=== PATIENT | male | born 1960 | race Caucasian/White ===

== ENCOUNTER → 2016-05-03 | Outpatient (CLI) | payer OTHER ==
[~2016-05-03] MED LIST: ACET-1311 PO; ASPCH81X PO; BUSP15TA70 PO; CHOL100010 PO; GABA1CAP PO; IBUP-1050 PO; INSDGIPEN SQ; LISI-725 PO; LSX20 PO; SIMV-151 PO; TAMS0.4C59 PO
[2016-05-03 17:46] LABS: BASO % 0.4 %; BASO ABS # 0.03 K/uL (0-0.2); COMPLETE YES; EOS % 8.8 %; HEMATOCRIT 40.7 % (42-52); IG% 0.2 %; LYMPH % 14.6 %; LYMPH ABS # 1.24 K/uL (1.2-3.4); MEAN CORPUSCULAR HEMOGLOBIN 30.5 pg (25-34); MEAN CORPUSCULAR HGB CONC 33.9 g/dl (32-36); MEAN PLATELET VOLUME 10.2 fL (7.4-10.4); MONO % 7.3 %; NEUT % 68.7 %; PLATELET COUNT 180 K/uL (130-400); RED BLOOD COUNT 4.52 M/uL (4.7-6.1); WHITE BLOOD COUNT 8.51 K/uL (4.8-10.8)
[2016-05-03 18:04] LABS: ALT/SGPT 27 U/L (12-78); BLOOD UREA NITROGEN 35 mg/dl (7-18); BUN/CREATININE RATIO 22.1 (10-20); CALCIUM 9.2 mg/dl (8.5-10.1); CARBON DIOXIDE 26 mmol/L (21-32); CHLORIDE 100 mmol/L (98-107); CHOLESTEROL 151 mg/dl (0-200); GLUCOSE 163 mg/dl (70-99); SODIUM 138 mmol/L (136-145); TRIGLYCERIDES 130 mg/dl (0-150); VERY LOW DENSITY LIPOPROT CALC 26 mg/dl
[2016-05-03 18:15] LABS: ALKALINE PHOSPHATASE 101 U/L (45-117); AST/SGOT 19 U/L (15-37); CHOLESTEROL/HDL RATIO 2.8; HDL CHOLESTEROL 54 mg/dl; LDL CHOLESTEROL CALCULATED 71 mg/dl
[2016-05-04 06:14] LABS: ESTIMATED AVERAGE GLUCOSE 194 mg/dl; HA1C FLAG Normal (Normal)
== END | disposition home or self-care (01) ==
LOC: C.LABPBG 14:52
PROVIDERS: ATTEND Internal Medicine Geriatric Medicine
DX: I10 Essential (primary) hypertension (principal); E78.5 Hyperlipidemia, unspecified; D64.9 Anemia, unspecified; E11.29 Type 2 diabetes mellitus with other diabetic kidney complication; E11.65 Type 2 diabetes mellitus with hyperglycemia

== ENCOUNTER → 2016-09-12 | Outpatient (CLI) | payer OTHER ==
[2016-09-12 12:24] LABS: MEAN CELL VOLUME 92.6 fL (80-100); MEAN CORPUSCULAR HEMOGLOBIN 30.5 pg (25-34); MEAN CORPUSCULAR HGB CONC 32.9 g/dl (32-36); PLATELET COUNT 185 K/uL (130-400); RED BLOOD COUNT 4.43 M/uL (4.7-6.1); WHITE BLOOD COUNT 8.91 K/uL (4.8-10.8)
[2016-09-12 12:39] LABS: URINE PROTIEN/CREAT RATIO 0.4 (0-0.2); URINE TOTAL PROTEIN 55.3 mg/dl (0-11.9)
[2016-09-12 12:41] LABS: URINE APPEARANCE CLEAR (CLEAR); URINE BILIRUBIN NEG (NEG); URINE COLOR YELLOW; URINE EPITHELIAL CELL AUTO 0-5 /lpf (0-5); URINE NITRITE NEG (NEG); URINE SPECIFIC GRAVITY 1.019 (1.000-1.030); UROBILINOGEN NEG (NEG)
[2016-09-12 12:47] LABS: MANUAL MICROSCOPIC REQUIRED? NO; REVIEW REQ? NO
[2016-09-12 12:51] LABS: ESTIMATED AVERAGE GLUCOSE 140 mg/dl; HA1C FLAG Normal (Normal)
[2016-09-12 13:26] LABS: BLOOD UREA NITROGEN 31 mg/dl (7-18); BUN/CREATININE RATIO 19.5 (10-20); CARBON DIOXIDE 28 mmol/L (21-32); CHLORIDE 103 mmol/L (98-107); GLUCOSE 114 mg/dl (70-99); PHOSPHORUS 3.4 mg/dl (2.5-4.9); POTASSIUM 4.1 mmol/L (3.5-5.1); SODIUM 139 mmol/L (136-145)
[2016-09-12 13:27] LABS: CALCIUM 9.3 mg/dl (8.5-10.1)
== END | disposition home or self-care (01) ==
LOC: C.LABPBG 10:08
PROVIDERS: ATTEND Internal Medicine Nephrology
DX: I10 Essential (primary) hypertension (principal); D64.9 Anemia, unspecified; N18.3 Chronic kidney disease, stage 3 (moderate); E87.1 Hypo-osmolality and hyponatremia; E11.65 Type 2 diabetes mellitus with hyperglycemia; Z79.4 Long term (current) use of insulin

== ENCOUNTER → 2016-10-03 | Outpatient (CLI) | payer OTHER ==
--- NOTE | 2016-10-05 16:48 | Sleep Study ---
Sleep Study Report Date of Service: October 03, 2016 Sleep Study Report Clinical data: The patient is a 55-year-old male with BMI 36.41 referred for evaluation of sleep apnea. The patient has snoring, fatigue, hypertension, and hypersomnolence. On evening of October 03, 2016, a home sleep apnea test was performed using a [employer] type 3 monitor. Recording results: Total recording time was 10 hours. Patient monitoring time and estimated sleep time was 10 hours. Respiratory data: Mild sleep apnea was documented. The YG was 14.4. There were 41 obstructive, 20 mixed, and 16 central apneic episodes. There were 67 hypopneas episodes recorded. The longest respiratory event was 52 seconds. Oximetry data: Nocturnal hypoxemia was seen. Oxygen maame was 73 percent. Mean saturation was 93 percent. Time below 89 percent was 24 minutes. Heart rate data: Heart rates ranged from 45 to 87 beats per minute. Snoring data: Snoring was recorded throughout the entire night. Impression: 55-year-old male with mild sleep apnea and nocturnal hypoxemia. Recommendations: The patient may benefit from use of an oral appliance, use of auto CPAP, or a repeat sleep study with CPAP. Sleep medicine consultation may be of benefit. Clinical correlation is needed. Copies To 1: Paulie Thornton M.D.
== END | disposition home or self-care (01) ==
LOC: C.NEUR 08:40
PROVIDERS: ATTEND Internal Medicine Geriatric Medicine
DX: R40.0 Somnolence (principal); G47.30 Sleep apnea, unspecified

== ENCOUNTER → 2017-02-07 | Outpatient (CLI) | payer OTHER ==
[2017-02-07 16:47] LABS: BASO % 0.4 %; BASO ABS # 0.03 K/uL (0-0.2); COMPLETE YES; EOS % 5.7 %; HEMATOCRIT 37.4 % (42-52); IG% 0.2 %; LYMPH % 14.8 %; LYMPH ABS # 1.24 K/uL (1.2-3.4); MEAN CELL VOLUME 90.3 fL (80-100); MEAN CORPUSCULAR HEMOGLOBIN 30.2 pg (25-34); MEAN CORPUSCULAR HGB CONC 33.4 g/dl (32-36); MEAN PLATELET VOLUME 9.6 fL (7.4-10.4); MONO % 7.9 %; PLATELET COUNT 204 K/uL (130-400); RED BLOOD COUNT 4.14 M/uL (4.7-6.1); WHITE BLOOD COUNT 8.38 K/uL (4.8-10.8)
[2017-02-07 16:58] LABS: BLOOD UREA NITROGEN 32 mg/dl (7-18); BUN/CREATININE RATIO 18.5 (10-20); CALCIUM 8.7 mg/dl (8.5-10.1); CARBON DIOXIDE 30 mmol/L (21-32); CHLORIDE 100 mmol/L (98-107); CREATININE 1.71 mg/dl (0.60-1.40); GLUCOSE 143 mg/dl (70-99); POTASSIUM 3.9 mmol/L (3.5-5.1); SODIUM 136 mmol/L (136-145)
[2017-02-07 17:03] LABS: PROSTATE SPECIFIC ANTIGEN 0.775 ng/ml (0.000-4.000)
[2017-02-08 08:06] LABS: ESTIMATED AVERAGE GLUCOSE 163 mg/dl; HA1C FLAG Normal (Normal)
== END | disposition home or self-care (01) ==
LOC: C.LAB1850 15:17
PROVIDERS: ATTEND Nurse Practitioner Adult Health
DX: I10 Essential (primary) hypertension (principal); E78.5 Hyperlipidemia, unspecified; D64.9 Anemia, unspecified; R80.9 Proteinuria, unspecified; Z86.39 Personal history of other endocrine, nutritional and metabolic disease; E11.29 Type 2 diabetes mellitus with other diabetic kidney complication

== ENCOUNTER → 2017-03-31 | Outpatient (CLI) | payer OTHER ==
--- NOTE | 2017-03-31 09:24 | DIAGNOSTIC IMAGING REPORT ---
CT SCAN OF THE CHEST WITHOUT IV CONTRAST CLINICAL HISTORY: Follow-up unspecified abnormal chest x-ray. COMPARISON STUDY: Chest x-ray dated 01/11/2016. TECHNIQUE: CT scan of the thorax was performed from the thoracic inlet to the upper abdomen. Images are reviewed in the axial, sagittal, and coronal planes. IV contrast was not administered for this examination due to elevated serum creatinine. A dose lowering technique was utilized adhering to the principles of ALARA. CT DOSE: 596.03 mGycm FINDINGS: Thyroid: Imaged portions of the thyroid gland are normal in size and attenuation. A 12 mm low-attenuation nodule is seen in the left lobe. Thoracic aorta: There is atherosclerotic calcification of the thoracic aorta, which is normal in caliber and demonstrates standard 3-vessel arch anatomy. Heart: The heart is mildly enlarged and there is trace pericardial effusion. The coronary arteries are densely calcified. The pulmonary trunk is normal in caliber. Lungs and pleural spaces: The trachea and central airways are clear. No airspace consolidation or pleural effusion is identified. Foci of linear atelectasis versus scarring are present at both lung bases. No concerning pulmonary lesion is seen. Mediastinum: There is no mediastinal lymphadenopathy. Khloe: Grossly clear but not well assessed without IV contrast. Axillae: There is no axillary lymphadenopathy. Upper abdomen: A tiny hiatal hernia is identified. Cholecystectomy clips are noted. Skeletal structures: No lytic or blastic bony lesions are seen. A left cervical rib is noted. There are healed left lower rib fractures. IMPRESSION: 1. There is no airspace consolidation or pleural effusion. 2. No concerning pulmonary lesion is identified. Correlation with the reportedly abnormal chest x-ray will be required. 3. Mild cardiac enlargement. 4. A 12 mm low-attenuation nodule is identified in the left thyroid lobe. Follow-up with a nonemergent thyroid ultrasound is recommended for further assessment. 5. Additional findings as above. Electronically signed by: Antoni Muller M.D. 03/31/2017 9:23 AM Dictated Date/Time: 03/31/2017 9:18 AM
== END | disposition home or self-care (01) ==
LOC: C.CTS 09:01
PROVIDERS: ATTEND Family Medicine
DX: I51.7 Cardiomegaly (principal); E04.1 Nontoxic single thyroid nodule

== ENCOUNTER → 2017-04-11 | Outpatient (CLI) | payer OTHER ==
[2017-04-11 18:11] LABS: HEMATOCRIT 38.5 % (42-52); HEMOGLOBIN 12.6 g/dL (14.0-18.0); MEAN CELL VOLUME 91.4 fL (80-100); MEAN CORPUSCULAR HEMOGLOBIN 29.9 pg (25-34); MEAN CORPUSCULAR HGB CONC 32.7 g/dl (32-36); MEAN PLATELET VOLUME 9.9 fL (7.4-10.4); PLATELET COUNT 204 K/uL (130-400); RED CELL DISTRIBUTION WIDTH SD 43.1 fL (36.4-46.3)
[2017-04-11 19:15] LABS: ALBUMIN 3.7 gm/dl (3.4-5.0); BLOOD UREA NITROGEN 29 mg/dl (7-18); CALCIUM 9.1 mg/dl (8.5-10.1); CARBON DIOXIDE 30 mmol/L (21-32); CREATININE 1.71 mg/dl (0.60-1.40); GLUCOSE 97 mg/dl (70-99); PHOSPHORUS 2.8 mg/dl (2.5-4.9); POTASSIUM 3.9 mmol/L (3.5-5.1); SODIUM 135 mmol/L (136-145)
== END | disposition home or self-care (01) ==
LOC: C.LABPBG 11:47
PROVIDERS: ATTEND Internal Medicine Nephrology
DX: R80.9 Proteinuria, unspecified (principal); N18.3 Chronic kidney disease, stage 3 (moderate)

== ENCOUNTER → 2017-08-01 | Outpatient (CLI) | payer OTHER ==
[~2017-08-01] VITALS: Ht 174 cm; Wt 111.2 kg
[~2017-08-01] MED LIST changes: +GABA100C13 PO; -GABA1CAP PO
[2017-08-01 14:34] VITALS: BP 165/85; PULSE 94; Ht 174 cm; Wt 111.2 kg
== END | disposition home or self-care (01) ==
LOC: C.NEUR 13:11
PROVIDERS: ATTEND Internal Medicine Pulmonary Disease
DX: G47.30 Sleep apnea, unspecified (principal); G47.34 Idiopathic sleep related nonobstructive alveolar hypoventilation; R40.0 Somnolence; E11.29 Type 2 diabetes mellitus with other diabetic kidney complication; Z79.4 Long term (current) use of insulin; E11.49 Type 2 diabetes mellitus with other diabetic neurological complication

== ENCOUNTER → 2017-10-26 | Outpatient (CLI) | payer OTHER ==
[~2017-10-26] MED LIST changes: +GABA-1693 PO; -GABA100C13 PO
[2017-10-26 17:18] LABS: ALBUMIN 3.6 gm/dl (3.4-5.0); BLOOD UREA NITROGEN 30 mg/dl (7-18); CALCIUM 8.5 mg/dl (8.5-10.1); CARBON DIOXIDE 27 mmol/L (21-32); CHOLESTEROL 130 mg/dl (0-200); CREATININE 1.71 mg/dl (0.60-1.40); GLUCOSE 193 mg/dl (70-99); LDL CHOLESTEROL CALCULATED 42 mg/dl; PHOSPHORUS 3.8 mg/dl (2.5-4.9); POTASSIUM 3.7 mmol/L (3.5-5.1); SODIUM 132 mmol/L (136-145)
[2017-10-27 05:59] LABS: HEMOGLOBIN A1C 7.8 % (4.5-5.6)
== END | disposition home or self-care (01) ==
LOC: C.LABPBG 15:06
PROVIDERS: ATTEND Nurse Practitioner Adult Health
DX: Z00.00 Encounter for general adult medical examination without abnormal findings (principal); I12.9 Hypertensive chronic kidney disease with stage 1 through stage 4 chronic kidney disease, or unspecified chronic kidney disease; N18.3 Chronic kidney disease, stage 3 (moderate); E11.22 Type 2 diabetes mellitus with diabetic chronic kidney disease; E78.2 Mixed hyperlipidemia; E11.29 Type 2 diabetes mellitus with other diabetic kidney complication; Z79.4 Long term (current) use of insulin

== ENCOUNTER 2023-10-17 19:47 | Inpatient (IN) ==
--- NOTE | 2023-10-17 20:31 | Emergency Department Note ---
Impression & Plan Hypoglycemia due to type 2 diabetes mellitus, Stage 5 chronic kidney disease due to type 2 diabetes mellitus, Vomiting ED Provider Note Provider: Cresencio Dietrich MD DATE OF SERVICE: 10/17/2023 CHIEF COMPLAINT: Hyperglycemia HISTORY OF PRESENT ILLNESS: Patient is a 62-year-old gentleman history of CKD, type 2 diabetes, COVID disorder presenting here today via ambulance from his home. Patient evidently was trying to take a large pill and vomited. Again to feel somewhat clammy and sweaty and blood sugar registered in the 40s on his glucose monitor. Received some peanut butter and EMS was activated. Evidently 3 weeks ago according to family and caregiver had an episode where his blood sugar went to the 20s and he was unresponsive. Has been undergoing workup for his kidney disease and fistulas recently place. Patient states some decreased intake. Is on a sliding scale insulin regimen. No fevers. No chest pain or abdominal pain reported. Back at baseline now and denies significant symptoms. Little bit anxious to the hospital. Does have some caregivers during the day but lives by himself. Family been trying to work to expand this although recently denied additional assistance. They have been working to try to get placement as well. Unsure if his glucose monitor was well calibrated. No fall or trauma tonight. Does report a bit of sinus congestion. PAST MEDICAL HISTORY: As noted above MEDICATIONS: Reviewed home medication list SOCIAL HISTORY: Lives by himself PHYSICAL EXAM: GENERAL: alert and oriented in no acute distress on stretcher, slightly anxious appearing Head: normocephalic and atraumatic EYES: No injection, discharge or icterus. PERRL, EOMI. NECK: Trachea midline. Supple. ENT: Mucous membranes pink and moist. LUNGS: Airway patent. No retractions. Breath sounds clear HEART: Regular tachycardic rate and rhythm. No chest wall tenderness ABDOMEN: Soft and non-tender, without guarding or rebound. SKIN: Acyanotic, warm, dry, without rashes EXTREMITIES: Without swelling, tenderness or deformity with the right upper extremity fistula in place with thrill and some trace lower extremity edema NEUROLOGICAL: No focal deficits. No aphasia. No facial droop or slurred speech. Normal strength and tone in the extremities. Sensation to gross touch normal. EK bpm sinus tachycardia. No PVC or PAC. No acute ST segment elevation or depression with a QTc of 423. CONTINUOUS CARDIAC MONITORING: was ordered and showed a heart rate of 110s-120s bpm in sinus tachycardia 1 view chest x-ray per my interpretation: No free air. No significant pulmonary edema. No pneumothorax notable or significant pleural effusion. Little bit of a right mid hilar fullness noted but no clear or other consolidative process. Patient's laboratory studies and imaging reviewed. Differential includes Infection, dehydration, metabolic abnormality, hypo/hyperglycemia, electrolyte disturbance, anemia, hypoxia, cardiac sources, intracerebral event, toxicologic, neurologic, as well as other pathologies. IMPRESSION/MEDICAL DECISION MAKING: Patient with hypoglycemic episode. No trauma history. Not having pain. Did vomit and have a choking episode but not hypoxic here. Doubt pneumonia. COVID test sent but not having significant GI upset or URI symptoms. Basic blood work status post given his CKD to look for any significant worsening or electrolyte abnormality. History of insulin use and diabetes and with some decreased intake this could be contributing. Family is more concerned regarding his long-term status and care especially in light of the fact he only has some care at home and this is the second episode of hypoglycemia. Questioning the need for long- term care/fci care. Blood work here very slight anemia but a significant leukocytosis of 20.4. Chest x-ray with little bit of right hilar fullness but no clear lobar pneumonia. BUN and creatinine elevated though not far off outpatient labs from earlier this month. No significant electrolyte abnormality. No evidence of hepatitis or pancreatitis based on labs. Again benign abdomen without tenderness or diarrheal symptoms. Procalcitonin was added on. Given some gentle IV fluid hydration with 750 mL normal saline being careful avoid fluid overload in this renal patient. Will cover empirically with ceftriaxone at this time given leukocytosis and possible chest x-ray findings. Leukocytosis could also be to be reactive to some gastro although not having significant diarrheal symptoms or ongoing vomiting issues now. Decision making with the patient and family as he lives alone overnight with a recurrent episode of hypoglycemia from several weeks ago feel that ongoing monitoring and with some worsening renal function possible adjustment of his insulin regimen. KUB to be obtained. COVID flu RSV testing completed. DIAGNOSIS: Hypoglycemia secondary to type 2 diabetes on insulin, CKD 4, vomiting, aspiration DISPOSITION: Hospitalist will evaluate Patient was agreeable with this plan. Past Med/Surg History Problem List (Updated 10/17/23 @ 22:56 by Cresencio Dietrich M.D.) Vomiting (Acute) Hypoglycemia due to type 2 diabetes mellitus (Acute) Stage 5 chronic kidney disease due to type 2 diabetes mellitus (Acute) End stage renal disease Renal cyst follows with [facility] community support associate Vitamin D deficiency Chronic venous insufficiency of lower extremity Acute kidney injury Controlled type 2 diabetes mellitus with kidney complication, with long-term current use of insulin Stage 4 chronic kidney disease due to diabetes mellitus follows with Dr. Alejandro Diabetic nephropathy Hypercalcemia History of colon polyps Diabetes type 2, uncontrolled IDDM Cognitive disorder Adult attention deficit disorder Anemia Anxiety Benign prostatic hyperplasia with urinary obstruction Chronic osteoarthritis Coronary artery calcification Diabetic peripheral neuropathy associated with type 2 diabetes mellitus Diabetic retinopathy Dyslipidemia Learning disability has multiple caregivers that come in daily to help with care Mild sleep apnea no device Multiple thyroid nodules Nocturnal hypoxia Obesity (BMI 30.0-34.9) Proteinuria Seasonal allergies Secondary hyperparathyroidism of renal origin Uncontrolled type 2 diabetes mellitus with kidney complication, with long-term current use of insulin Uncontrolled type 2 diabetes mellitus with neurologic complication, with long- term current use of insulin Recurrent Clostridium difficile diarrhea Hypertension controlled, stable per pt Inguinal hernia OCD (obsessive compulsive disorder) Medical History Diabetic retinopathy History of OCD (obsessive compulsive disorder) Obesity (BMI 30.0-34.9) End stage renal disease Hypertension Adult attention deficit disorder Anxiety Seasonal allergies Mild sleep apnea Stage 4 chronic kidney disease Dyslipidemia Diabetes mellitus Hx of Clostridium difficile infection states no issues in years Dysphagia takes pills w/ applesauce Poor historian History of COVID-19 02/2021- flu like symptoms>resolved Herniated disc pt and POA unsure Glaucoma Surgical History Hx of vascular surgery 03/2023, right AC basilic vein fistula creation History of colonoscopy History of left cataract extraction History of right cataract extraction History of testicular surgery Hydrocele repair. History of hernia repair History of laparoscopic cholecystectomy Family History Mother Alzheimer disease Sister Hypertension Father Prostate cancer Other No family history of adverse response to anesthesia Denies family history of Ovarian cancer Myocardial infarction Breast cancer Colorectal cancer Social History Smoking Status: Never smoker Second Hand Exposure: No; Do You Dip or Chew Tobacco: No; Hx Alcohol Use: No Hx Substance Use: No Preferred Language: Kazakh Communication Ability: Impaired Communication Ability Comment: vision impaired, still signs own consents Visual Impairment: Limited Hearing Ability: Normal Surgical Lead Required: No Beliefs That Will Affect Care: None marital status: Single Current Living Situation: Alone Current Living Situation Comment: has caregivers every 12 hours, sisters also help care for him current occupational status: disabled Feels Safe at Home: Yes Childhood Exposure to Second-Hand Smoke: No Diet: regular Diet Comment: regular caffeine: No (hot tea once in a while) during the past year weight has: remained stable Dental Care, Regularly: Yes Physical Activity Frequency: 1-2 Times per Week Seatbelt Use: always Sunscreen Use: No Assistive Devices: Cane Allergies Allergies Allergy/AdvReac Type Severity Reaction Status Date / Time lisinopril Allergy Intermediate scratchy Verified 10/17/23 21:00 throat Home Meds Home Medications Medication Instructions Recorded Confirmed aspirin 81 mg tablet,delayed 81 mg PO QAM 05/24/19 10/17/23 release acetaminophen 500 mg tablet 500 mg PO Q6H PRN Pain 02/11/20 10/17/23 (Tylenol Extra Strength) blood sugar diagnostic (OneTouch 12/28/20 10/02/23 Ultra Blue Test Strip) albuterol sulfate 90 mcg/actuation 2 inh inhalation Q6H PRN Shortness 01/31/22 10/17/23 aerosol inhaler Of Breath Or Wheezing peg 400-propylene glycol (PF) 0.4 1 drp ophthalmic (eye) TID PRN Dry 04/11/23 10/17/23 %-0.3 % eye drops in a dropperette Eyes (Systane (PF)) empagliflozin 10 mg tablet 10 mg PO QAM 07/26/23 10/17/23 (Jardiance) insulin lispro 100 unit/mL 15 unit subcut TIDM 07/26/23 10/17/23 subcutaneous pen (Humalog KwikPen (U-100) Insulin) epoetin rosey 40,000 unit/mL 0 unit subcut MONTHLY 09/27/23 10/17/23 injection solution (Procrit) Previous Rx's Medication Instructions Recorded blood-glucose meter (Blood Glucose #1 ea 03/31/19 Monitoring kit) glucose 4 gram chewable tablet 4 g PO Q15M PRN hypoglycemia #30 09/04/20 (Dex4 Glucose) tabs lancets 28 gauge (OneTouch #100 ea 12/28/20 Sure[employer]ie Jean Lancing Devices) clotrimazole 1 % topical cream 1 applic topical BID #90 grams 05/20/22 cane #1 ea 10/13/22 simvastatin 20 mg tablet 20 mg PO QPM #90 tabs 11/04/22 Shower Chair #1 ea 11/25/22 Handicap Walk In Shower #1 ea 12/15/22 furosemide 40 mg tablet 40 mg PO BID #180 tabs 12/15/22 compress.stocking,knee,reg,med #2 ea 12/29/22 amlodipine 5 mg tablet 5 mg PO QAM #90 tabs 02/21/23 triamcinolone acetonide 0.5 % 1 applic topical BID PRN skin 03/15/23 topical cream irritation #60 grams ferrous sulfate 325 mg (65 mg 325 mg PO BID #180 tabs 03/22/23 iron) tablet losartan 100 mg tablet 100 mg PO QPM #90 tabs 03/22/23 tamsulosin 0.4 mg capsule 0.4 mg PO QAM #90 caps 03/24/23 buspirone 15 mg tablet 15 mg PO BID #180 tabs 05/16/23 docusate sodium 100 mg capsule 100 mg PO BID #180 caps 05/16/23 (Colace) calcitriol 0.25 mcg capsule 0.25 mcg PO QAM #90 caps 06/13/23 pen needle, diabetic 32 gauge x #400 ea 06/15/23 5/32" (BD Ultra-Fine Daria Pen Needle) blood-glucose meter,continuous #1 ea 06/19/23 (FreeStyle Kaylah 3 [place]) gabapentin 300 mg capsule 300 mg PO QPM #90 caps 09/07/23 sucroferric oxyhydroxide 500 mg 500 mg PO TIDWMEAL #90 tabs 10/11/23 chewable tablet (Velphoro) insulin glargine 100 unit/mL (3 20 unit (0.2 mL) subcut HS #45 mL 10/13/23 mL) subcutaneous pen (Lantus Solostar U-100 Insulin) Results & Data (ED) Vital Signs Vital Signs - 24 hr 10/17/23 19:52 10/17/23 19:56 10/17/23 20:00 Temperature 37.4 C Temperature Source Oral Pulse Rate 113 H 116 H 114 H Pulse Rate from SpO2 Sensor 114 H Respiratory Rate 18 20 Respiratory Effort / Characteristics Non-Labored Spontaneous Respiratory Depth Normal Respiratory Pattern Regular Blood Pressure 184/91 H 184/91 H Blood Pressure Mean 122 122 Pulse Oximetry 98 98 Oxygen Delivery Method Room Air Room Air Sepsis Recent Fever Within 48 Hours No Sepsis New/Unexplained Change in Mental Status N/A Sepsis Action Taken by Nursing No Action Required 10/17/23 20:00 10/17/23 22:00 10/17/23 22:36 Temperature Temperature Source Pulse Rate 120 H 121 H 121 H Pulse Rate from SpO2 Sensor 122 H 122 H Respiratory Rate 20 18 20 Respiratory Effort / Characteristics Respiratory Depth Respiratory Pattern Blood Pressure 162/94 H 169/85 H Blood Pressure Mean 109 113 Pulse Oximetry 96 100 97 Oxygen Delivery Method Room Air Room Air Room Air Sepsis Recent Fever Within 48 Hours Sepsis New/Unexplained Change in Mental Status Sepsis Action Taken by Nursing Laboratory Data 10/17/23 20:52 10/17/23 20:52 Lab Results 10/17/23 10/17/23 10/17/23 Range/Units 19:55 20:52 20:53 WBC 20.47 H (4.8-10.8) K/ul RBC 3.66 L (4.70-6.10) M/uL Hgb 11.1 L (14.0-18.0) g/dl Hct 33.3 L (42.0-52.0) % MCV 91.0 (80.0-100.0) fL MCH 30.3 (25.0-34.0) pg MCHC 33.3 (32.0-36.0) g/dL RDW Std Deviation 40.1 (36.4-46.3) fL RDW Coeff of Vinay 12.1 (11.5-14.5) % Plt Count 201 (130-400) K/uL MPV 9.1 L (9.4-12.4) fL Immature Gran % (Auto) 0.5 % Neut % (Auto) 89.7 % Lymph % (Auto) 3.4 % Tripp % (Auto) 4.4 % Eos % (Auto) 1.6 % Baso % (Auto) 0.4 % Neut # (Auto) 18.36 H (1.40-6.50) K/uL Lymph # (Auto) 0.70 L (1.20-3.40) K/uL Tripp # (Auto) 0.90 H (0.11-0.59) K/uL Eos # (Auto) 0.32 (0.00-0.50) K/uL Baso # (Auto) 0.08 (0.00-0.20) K/uL Immature Gran # (Auto) 0.11 (0.01-0.20) K/uL Sodium 136 (136-145) mmol/L Potassium 4.1 (3.5-5.1) mmol/L Chloride 100 (98-107) mmol/L Carbon Dioxide 25 (21-32) mmol/L Anion Gap 11 (3-11) BUN 74 H (6-23) mg/dl Creatinine 4.63 H* (0.6-1.4) mg/dl Est Cr Clr Drug Dosing 19.2 ml/min Est GFR ( Amer) 14.5 ml/min Est GFR (Non-Af Amer) 12.5 ml/min BUN/Creatinine Ratio 16.0 (10-20) Glucose 119 H (70-99(Fasting)) mg/dl POC Glucose 114 H (70-99) mg/dl Estimat Average Glucose 171 mg/dl Hemoglobin A1c 7.6 H (4.5-5.6) % Calcium 9.8 (8.6-10.3) mg/dl Magnesium 2.4 (1.7-2.4) mg/dl Total Bilirubin 0.5 (0.2-1.0) mg/dl AST 14 (13-39) U/L ALT 14 (7-52) U/L Alkaline Phosphatase 59 (34-104) U/L Troponin I High Sens 15.3 (0-20) pg/ml Total Protein 7.5 (6.0-8.3) gm/dl Albumin 4.3 (3.4-5.0) gm/dl Globulin 3.2 (2.5-4.0) gm/dl Albumin/Globulin Ratio 1.3 (0.9-2) Lipase 63 (11-82) U/L Procalcitonin 0.09 (0-0.5) ng/ml TSH 2.155 (0.300-4.500) uIu/ml Administered Medications Discontinued Medications Sodium Chloride (Nss) 250 mls @ 999 mls/hr IV .Q16M ONE Stop: 10/17/23 20:48 Last Infusion: 10/17/23 22:10 Dose: Infused Documented By: Admin: 10/17/23 21:20 Dose: 999 mls/hr Documented By: ACRLITA Sodium Chloride (Nss) 500 mls @ 999 mls/hr IV .Q31M ONE Stop: 10/17/23 21:52 Last Admin: 10/17/23 22:24 Dose: 999 mls/hr Documented By: CARLITA Ceftriaxone Sodium (Rocephin) 2,000 mg in 50 mls @ 100 mls/hr IV NOW STA Stop: 10/17/23 22:29 Last Admin: 10/17/23 22:24 Dose: 100 mls/hr Documented By: CARLITA Discharge Plan Visit Data Chief Complaint: Hypoglycemia Stated Complaint: LOW BLOOD SUGAR ED Provider: Cresencio Dietirch Discharge Problem: Hypoglycemia due to type 2 diabetes mellitus, Stage 5 chronic kidney disease due to type 2 diabetes mellitus, Vomiting Patient Disposition: Being Evaluated by Hospitalist Forms Stand Alone Forms: My [facility] Prescriptions Prescriptions: No Action (DME) lancets [OneTouch SureSoft Lancing Dev] 28 gauge misc See Rx Instructions .ROUTE .MEDSUPPLY Qty: 100 5RF Rx Instructions: testing 3 X daily simvastatin 20 mg tablet 20 mg PO QPM Qty: 90 3RF (DME) Shower Chair Misc See Rx Instructions .Route Qty: 1 0RF Rx Instructions: As directed amlodipine 5 mg tablet 5 mg PO QAM Qty: 90 3RF triamcinolone acetonide 0.5 % cream 1 applic topical BID PRN (Reason: skin irritation) Qty: 60 1RF Rx Instructions: apply to lower legs ferrous sulfate 325 mg (65 mg iron) tablet 325 mg PO BID Qty: 180 3RF losartan 100 mg tablet 100 mg PO QPM Qty: 90 3RF tamsulosin 0.4 mg capsule 0.4 mg PO QAM Qty: 90 2RF docusate sodium [Colace] 100 mg capsule 100 mg PO BID Qty: 180 1RF Rx Instructions: buspirone 15 mg tablet 15 mg PO BID Qty: 180 1RF calcitriol 0.25 mcg capsule 0.25 mcg PO QAM Qty: 90 3RF (DME) pen needle, diabetic [BD Ultra-Fine Daria Pen Needle] 32 gauge x 5/32" needle See Rx Instructions .Route Qty: 400 1RF Rx Instructions: Use four per day to inject insulin (DME) FreeStyle Kaylah 3 [place] Misc See Rx Instructions .Route Qty: 1 0RF Rx Instructions: for use with Kaylah 3 sensors gabapentin 300 mg capsule 300 mg PO QPM Qty: 90 1RF Procrit 40,000 unit/mL solution 0 unit subcut MONTHLY Velphoro 500 mg tablet,chewable 500 mg PO TIDWMEAL Qty: 90 2RF Rx Instructions: to be taken with meal as phosphate binder. insulin glargine [Lantus Solostar U-100 Insulin] 100 unit/mL (3 mL) insulin pen 20 unit subcut HS Qty: 45 1RF clotrimazole 1 % cream 1 applic topical BID Qty: 90 2RF furosemide 40 mg tablet 40 mg PO BID Qty: 180 3RF glucose [Dex4 Glucose] 4 gram tablet,chewable 4 g PO Q15M PRN (Reason: hypoglycemia) Qty: 30 0RF Rx Instructions: until symptoms of low blood sugar are controlled (DME) cane Device See Rx Instructions .Route Qty: 1 0RF Rx Instructions: As directed (DME) Handicap Walk In Shower See Rx Instructions .Route .MEDSUPPLY Qty: 1 0RF Rx Instructions: As directed (DME) compress.stocking,knee,reg,med Misc See Rx Instructions .ROUTE .MEDSUPPLY Qty: 2 0RF Rx Instructions: Medium compression 20-30mmHG; Dx: I87.2 albuterol sulfate 90 mcg/actuation HFA aerosol inhaler 2 inh inhalation Q6H PRN (Reason: Shortness Of Breath Or Wheezing) (DME) blood-glucose meter [Blood Glucose Monitoring] Kit See Rx Instructions .ROUTE .MEDSUPPLY Qty: 1 0RF Rx Instructions: One Touch Ultra Mini. Test 4 times a day. acetaminophen [Tylenol Extra Strength] 500 mg tablet 500 mg PO Q6H PRN (Reason: Pain) (DME) OneTouch Ultra Blue Test Strip Strip See Rx Instructions .ROUTE .MEDSUPPLY Dose Instruction: As directed Rx Instructions: Testing 1 times daily, E11.49, E11.65 aspirin 81 mg Tablet,Delayed Release (Dr/Ec) 81 mg PO QAM Systane (PF) 0.4-0.3 % Dropperette 1 drp OPHTHALMIC (EYE) TID PRN (Reason: Dry Eyes) insulin lispro [Humalog KwikPen Insulin] 100 unit/mL insulin pen 15 unit subcut TIDM Rx Instructions: 15 units subcut three times daily with meals Jardiance 10 mg tablet 10 mg PO QAM Referrals Referrals: Michelle Chaparro DO [Primary Care Provider] -
[2023-10-17 21:19] LABS: Basophils # (auto) 0.08 K/uL (0.00-0.20); Basophils % (auto) 0.4 %; Eosinophils # (auto) 0.32 K/uL (0.00-0.50); Eosinophils % (auto) 1.6 %; Hematocrit (blood only) 33.3 % (42.0-52.0); Hemoglobin 11.1 g/dl (14.0-18.0); Immature Granulocytes # (auto) 0.11 K/uL (0.01-0.20); Immature Granulocytes % (auto) 0.5 %; Lymphocytes % (auto) 3.4 %; Mean Corpuscular Hemoglobin 30.3 pg (25.0-34.0); Mean Corpuscular Hgb Conc 33.3 g/dL (32.0-36.0); Mean Platelet Volume 9.1 fL (9.4-12.4); Monocytes % (auto) 4.4 %; Neutrophils # (auto) 18.36 K/uL (1.40-6.50); Neutrophils % (auto) 89.7 %; Platelet Count 201 K/uL (130-400); RDW Coefficient of Variation 12.1 % (11.5-14.5); RDW Standard Deviation 40.1 fL (36.4-46.3); Red Blood Count 3.66 M/uL (4.70-6.10); White Blood Count 20.47 K/ul (4.8-10.8)
[2023-10-17] MEDS: SODIUM CHLORIDE 0.9% 250 ML IV ONE (21:20)
[2023-10-17 21:32] LABS: Albumin Globulin Ratio 1.3 (0.9-2); Albumin Level 4.3 gm/dl (3.4-5.0); Bilirubin,Total 0.5 mg/dl (0.2-1.0); Calcium 9.8 mg/dl (8.6-10.3); Creatinine Clr Calc Pharmacy 19.2 ml/min; Est GFR (African American) 14.5 ml/min; Est GFR (Non-African American) 12.5 ml/min; Globulin 3.2 gm/dl (2.5-4.0); Magnesium 2.4 mg/dl (1.7-2.4); Potassium 4.1 mmol/L (3.5-5.1); Total Protein 7.5 gm/dl (6.0-8.3)
[2023-10-17 21:38] LABS: Estimated Average Glucose 171 mg/dl; Hemoglobin A1C 7.6 % (4.5-5.6)
[2023-10-17 21:45] LABS: Thyroid Stimulating Hormone 2.155 uIu/ml (0.300-4.500); Troponin I High Sensitivity 15.3 pg/ml (0-20)
[2023-10-17] MEDS: cefTRIAXone SODIUM 2,000 MG/50 ML BAG IV STA (22:24)
[2023-10-17] MEDS: SODIUM CHLORIDE 0.9% 500 ML IV ONE (22:24)
[2023-10-17 23:00] LABS: Appearance Urine Clear (Clear); Bacteria Urine Automated None Seen (None Seen); Bilirubin Urine Negative (Negative); Blood Urine Trace (Negative); Cast Urine Automated 0-2 /lpf (0-2); Color Urine Yellow; Epithelial Cell Urine Auto 0-2 /hpf (0-2); Glucose Urine UA 2+ (Negative); Ketones Urine Trace (Negative); Leukocyte Esterase Urine Negative (Negative); Nitrite Urine Negative (Negative); Protein Urine 2+ (Negative); RBC Urine Automated 0-2 /hpf (0-2); Specific Gravity Urine 1.012 (1.000-1.030); Urobilinogen Urine Negative (Negative); WBC Urine Automated 0-5 /hpf (0-5)
--- NOTE | 2023-10-17 23:28 | History & Physical Report ---
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 #T2DM Glucose in normal range since arrival to ED Will hold home insulin and cover with ISS #Leukocytosis Unclear source CXR, procal, UA negative KUB, COVID, Flu, RSV negative Given CTX x1 in ED #KIRK on CKD-V pre renal due to decreased oral intake vs progression of CKD Given 750mL bolus, will continue gentle fluid resuscitation Avoid large amounts of fluid follow BMP, repeat in AM fistula in place, not yet on dialysis #Intellectual disability Pt having increasing difficulty caring for himself Has caregivers in during the day but alone overnight POAs are sisters and they are interested in fci placement for him at this time Please call sisters with updates: Ban ; Renay #Anxiety buspar #BPH flomax #HTN amlodipiine losartan FENGI: DM2, renal Code status: full code DVT prophylaxis: heparin Isolation: none Disposition: med tele History of Present Illness Primary Care Provider: Michelle Chaparro, DO 62 yo male PMHx intellectual disability, CKD-V not yet on [employer]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 He has had at least two episodes of hypoglycemia in the last 3 weeks as low as 29, according to his caregiver. He is on insulin therapy and no recent changes have been made to their dosing. He reports a decreased appetite after fistula placement was completed in July 2023. Today he had an episode of nausea and vomiting after taking a pill. He has not been sick recently. On admission he was found to have a leukocytosis of 20.47 and is tachycardic on the monitor. Other than the episode of vomiting today he denies MARK, CP, SOB, N/V/D, abdominal pain. ED course: s/p 750ml NSS He was treated empirically with ceftriaxone, blood cultures were not drawn CXR shows perihilar fullness, but no obvious focal pneumonia procal is negative UA not suggestive of infection COVID/Flu/RSV testing pending KUB ordered by ED pending Allergies Allergy/AdvReac Type Severity Reaction Status Date / Time lisinopril Allergy Intermediate scratchy Verified 10/17/23 21:00 throat Home Medications Medication Instructions Recorded Confirmed Type blood-glucose meter (Blood Glucose #1 ea 03/31/19 10/02/23 Rx Monitoring kit) aspirin 81 mg tablet,delayed 81 mg PO QAM 05/24/19 10/17/23 History release acetaminophen 500 mg tablet 500 mg PO Q6H PRN Pain 02/11/20 10/17/23 History (Tylenol Extra Strength) glucose 4 gram chewable tablet 4 g PO Q15M PRN hypoglycemia #30 09/04/20 10/17/23 Rx (Dex4 Glucose) tabs blood sugar diagnostic (OneTouch 12/28/20 10/02/23 History Ultra Blue Test Strip) lancets 28 gauge (OneTouch #100 ea 12/28/20 10/02/23 Rx SureSoft Lancing Devices) albuterol sulfate 90 mcg/actuation 2 inh inhalation Q6H PRN Shortness 01/31/22 10/17/23 History aerosol inhaler Of Breath Or Wheezing clotrimazole 1 % topical cream 1 applic topical BID #90 grams 05/20/22 10/17/23 Rx cane #1 ea 10/13/22 10/02/23 Rx simvastatin 20 mg tablet 20 mg PO QPM #90 tabs 11/04/22 10/17/23 Rx Shower Chair #1 ea 11/25/22 10/02/23 Rx Handicap Walk In Shower #1 ea 12/15/22 10/02/23 Rx furosemide 40 mg tablet 40 mg PO BID #180 tabs 12/15/22 10/17/23 Rx compress.stocking,knee,reg,med #2 ea 12/29/22 10/02/23 Rx amlodipine 5 mg tablet 5 mg PO QAM #90 tabs 02/21/23 10/17/23 Rx triamcinolone acetonide 0.5 % 1 applic topical BID PRN skin 03/15/23 10/17/23 Rx topical cream irritation #60 grams ferrous sulfate 325 mg (65 mg 325 mg PO BID #180 tabs 03/22/23 10/17/23 Rx iron) tablet losartan 100 mg tablet 100 mg PO QPM #90 tabs 03/22/23 10/17/23 Rx tamsulosin 0.4 mg capsule 0.4 mg PO QAM #90 caps 03/24/23 10/17/23 Rx peg 400-propylene glycol (PF) 0.4 1 drp ophthalmic (eye) TID PRN Dry 04/11/23 10/17/23 History %-0.3 % eye drops in a dropperette Eyes (Systane (PF)) buspirone 15 mg tablet 15 mg PO BID #180 tabs 05/16/23 10/17/23 Rx docusate sodium 100 mg capsule 100 mg PO BID #180 caps 05/16/23 10/17/23 Rx (Colace) calcitriol 0.25 mcg capsule 0.25 mcg PO QAM #90 caps 06/13/23 10/17/23 Rx pen needle, diabetic 32 gauge x #400 ea 06/15/23 10/02/23 Rx 5/32" (BD Ultra-Fine Daria Pen Needle) blood-glucose meter,continuous #1 ea 06/19/23 10/02/23 Rx (FreeStyle Kaylah 3 [place]) empagliflozin 10 mg tablet 10 mg PO QAM 07/26/23 10/17/23 History (Jardiance) insulin lispro 100 unit/mL 15 unit subcut TIDM 07/26/23 10/17/23 History subcutaneous pen (Humalog KwikPen (U-100) Insulin) gabapentin 300 mg capsule 300 mg PO QPM #90 caps 09/07/23 10/17/23 Rx epoetin rosey 40,000 unit/mL 0 unit subcut MONTHLY 09/27/23 10/17/23 History injection solution (Procrit) sucroferric oxyhydroxide 500 mg 500 mg PO TIDWMEAL #90 tabs 10/11/23 10/17/23 Rx chewable tablet (Velphoro) insulin glargine 100 unit/mL (3 20 unit (0.2 mL) subcut HS #45 mL 10/13/23 10/17/23 Rx mL) subcutaneous pen (Lantus Solostar U-100 Insulin) Past Med/Surg History Problem List (Updated 10/17/23 @ 23:37 by Gabriel Mcclain DO) Leukocytosis Acute kidney injury superimposed on stage 5 chronic kidney disease, not on chronic dialysis Vomiting (Acute) Hypoglycemia due to type 2 diabetes mellitus (Acute) Stage 5 chronic kidney disease due to type 2 diabetes mellitus (Acute) End stage renal disease Renal cyst 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 Alejandro Diabetic nephropathy Hypercalcemia History of colon polyps Diabetes type 2, uncontrolled IDDM Cognitive disorder Adult attention deficit disorder Anemia Anxiety Benign prostatic hyperplasia with urinary obstruction Chronic osteoarthritis Coronary artery calcification Diabetic peripheral neuropathy associated with type 2 diabetes mellitus Diabetic retinopathy Dyslipidemia Learning disability has multiple caregivers that come in daily to help with care Mild sleep apnea no device Multiple thyroid nodules Nocturnal hypoxia Obesity (BMI 30.0-34.9) Proteinuria Seasonal allergies Secondary hyperparathyroidism of renal origin Uncontrolled type 2 diabetes mellitus with kidney complication, with long-term current use of insulin Uncontrolled type 2 diabetes mellitus with neurologic complication, with long- term current use of insulin Recurrent Clostridium difficile diarrhea Hypertension controlled, stable per pt Inguinal hernia OCD (obsessive compulsive disorder) Medical History Diabetic retinopathy History of OCD (obsessive compulsive disorder) Obesity (BMI 30.0-34.9) End stage renal disease Hypertension Adult attention deficit disorder Anxiety Seasonal allergies Mild sleep apnea Stage 4 chronic kidney disease Dyslipidemia Diabetes mellitus Hx of Clostridium difficile infection states no issues in years Dysphagia takes pills w/ applesauce Poor historian History of COVID-19 02/2021- flu like symptoms>resolved Herniated disc pt and POA unsure Glaucoma Surgical History Hx of vascular surgery 03/2023, right AC basilic vein fistula creation History of colonoscopy History of left cataract extraction History of right cataract extraction History of testicular surgery Hydrocele repair. History of hernia repair History of laparoscopic cholecystectomy Family History Mother Alzheimer disease Sister Hypertension Father Prostate cancer Other No family history of adverse response to anesthesia Denies family history of Ovarian cancer Myocardial infarction Breast cancer Colorectal cancer Social History Smoking Status: Never smoker Second Hand Exposure: No; Do You Dip or Chew Tobacco: No; Hx Alcohol Use: No Hx Substance Use: No Preferred Language: Luxembourgish Communication Ability: Effective Communication Ability Comment: vision impaired, still signs own consents Visual Impairment: Limited Hearing Ability: Normal Credit Adjuster Required: No Beliefs That Will Affect Care: None marital status: Single Current Living Situation: Alone Current Living Situation Comment: has care givers but only in am current occupational status: disabled Other Information That Helps Us Care for You: No Feels Safe at Home: No Is there a partner from a previous relationship who is making you feel unsafe now?: No Any Concerns about Your Family Situation: No Would You Like to Speak to Someone About Your Situation: No Safety Concerns: Feels Safe At This Time Childhood Exposure to Second-Hand Smoke: No Diet: regular Diet Comment: regular caffeine: No (hot tea once in a while) during the past year weight has: remained stable Dental Care, Regularly: Yes Physical Activity Frequency: 1-2 Times per Week Seatbelt Use: always Sunscreen Use: No Assistive Devices: Cane Review of Systems Review of Systems: reviewed, per HPI Physical Exam Physical Exam: Constitutional: no acute distress HEENT: NCAT, no conjunctival injection CV: regular rhythm, no murmur appreciated, extremities well-perfused, no LE edema Resp: CTABL, no wheezes/rales/rhonchi appreciated, no increased work of breathing GI: soft, nondistended, nontender MSK: no gross deformities appreciated Skin: warm, dry, no rash appreciated Neuro: alert, oriented, no focal neurologic deficit appreciated Results & Data Results & Data Vital Signs (Past 12 Hours) Vital Signs Temp Pulse Resp BP Pulse Ox O2 Del Method 10/17/23 22:36 121 H 20 169/85 H 97 Room Air 10/17/23 22:00 121 H 18 162/94 H 100 Room Air 10/17/23 20:00 120 H 20 96 Room Air 10/17/23 20:00 114 H 20 184/91 H 98 Room Air 10/17/23 19:56 116 H 10/17/23 19:52 37.4 C 113 H 18 184/91 H 98 Room Air Code Status & VTE Plan VTE Prophylaxis Plan VTE Prophylaxis will be ordered: Yes Supervising Physician Co-Signing Physician Notes Attending addendum: I have physically seen this patient, have supervised the medical residents activities, and agree with the H&P unless as otherwise noted. Assessment and Plan: Hypoglycemia due to diabetes mellitus- Decreased oral intake of foods due to nausea and vomiting Reportedly had questions about possibly tolerating chewable sevelamer Hold home insulin Placed on Accu-Cheks with NovoLog SSI Glucose as low as 46, presently 119 50 mL of D50 as needed for glucose less than 100 Acute kidney injury superimposed on CKD/dehydration- Creatinine 4.63 with base around 4.46 Status post 750 mL bolus from the ED Continue NSS as noted, recheck laboratories in a.m. Has not been on dialysis Consult nephrology to follow in hospital Leukocytosis- WBC 20.47 with left shift COVID/flu/RSV all negative Urinalysis negative so far Received ceftriaxone empirically from the ED Follow overnight determine additional dosing for the a.m. Hypertension- Continue amlodipine Hold losartan Remaining orders and notations as noted Resident Activity Tracking Resident Involvement: Resident Care Provided Care Provided: Adult Hospital Medicine
[2023-10-17 23:41] LABS: Influenza A virus by PCR Negative (Neg); Influenza B virus by PCR Negative (Neg); RSV by PCR Negative (Neg); SARS CoV2 RNA(COVID-19) Ceph NEGATIVE (Negative)
[2023-10-18] MEDS ORDERED: GLUCAGON FOR INJ 1 MG VIAL SQ PRN (02:44)
[2023-10-18] MEDS ORDERED: DEXTROSE 50% 50 ML SYRINGE IV PRN (02:44)
[2023-10-18] MEDS ORDERED: ALUMINUM/MAGNESIUM SUSP 30 ML UDC PO PRN (02:44)
[2023-10-18] MEDS ORDERED: CARBOHYDRATES FOR HYPOGLYCEMIA PO PRN (02:44)
[2023-10-18] MEDS ORDERED: ALBUTEROL HFA 8 GM INHALER INH PRN (02:44)
[2023-10-18] MEDS ORDERED: GLUCOSE 40% GEL 15 GM TUBE PO PRN (02:44)
[2023-10-18] MEDS ORDERED: GLUCOSE 10 TAB/TUBE PO PRN (02:44)
[2023-10-18] MEDS ORDERED: ARTIFICIAL TEARS OP PRN (03:08)
[2023-10-18] MEDS: busPIRone 15 MG TAB PO SCH (03:34)
[2023-10-18] MEDS: FUROSEMIDE 40 MG TAB PO SCH (03:35)
[2023-10-18] MEDS: DOCUSATE SODIUM 100 MG CAP PO SCH (03:35)
--- NOTE | 2023-10-18 06:56 | XRay Report ---
XR chest 1V portable CLINICAL HISTORY: weakness, vomiting TECHNIQUE: Single frontal radiograph of the chest was obtained. Comparison: Comparison is made to chest radiograph 08/20/2023 FINDINGS: No lines and tubes are seen. Calcified aortic knob is seen. The lungs are clear. No evidence of pleur al effusion or pneumothorax. IMPRESSION: No acute chest disease. ACT 112: Negative or not required by law. Electronically signed by: Jose Knowles M.D. 10/18/2023 6:55 AM
[2023-10-18] MEDS: ONDANSETRON INJ 2 MG/ML 2 ML VIAL IV PRN (07:54)
[2023-10-18] MEDS: CALCITRIOL 0.25 MCG CAPSULE PO SCH (08:35)
[2023-10-18] MEDS: amLODIPine BESYLATE 5 MG TAB PO SCH (08:35)
[2023-10-18] MEDS: HEPARIN SOD 5,000 UNIT/0.5 ML VIAL SQ SCH (08:35)
[2023-10-18] MEDS: FERROUS SULFATE 325 MG TAB PO SCH (08:35)
[2023-10-18] MEDS: ASPIRIN 81 MG ECTAB PO SCH (08:35)
[2023-10-18] MEDS: TAMSULOSIN HCL 0.4 MG CAP PO SCH (08:35)
[2023-10-18] MEDS: POLYETHYLENE (MIRALAX) 17 GM PACK PO PRN (08:40)
[2023-10-18] MEDS: INSULIN ASPART PER UNIT CHARGE SC SCH (08:45)
--- NOTE | 2023-10-18 08:58 | XRay Report ---
KUB HISTORY: vomited COMPARISON: None. FINDINGS: The bowel gas pattern is unremarkable. There are no dilated loops of small bowel to suggest an obstruction. No renal calculi. No ureteral calculi. Calcifications in the deep pelvis likely rep resent phleboliths. Moderate fecal retention. Surgical clips within the right upper quadrant. No pneu moperitoneum or pneumatosis. IMPRESSION: 1. Nonobstructive bowel gas pattern. 2. Moderate fecal retention. ACT 112: Negative or not required by law. Electronically signed by: Pradeep Keita M.D. 10/18/2023 8:57 AM
--- NOTE | 2023-10-18 13:37 | Hospitalist Progress Note ---
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 #T2DM Glucose in normal range since arrival to ED Will hold home insulin and cover with ISS Continue to monitor #Leukocytosis Unclear source CXR, procal, UA negative KUB, COVID, Flu, RSV negative Given CTX x1 in ED Will hold off on antibiotics, was probably stress related #KIRK on CKD-V pre renal due to decreased oral intake vs progression of CKD Gentle hydration fistula in place, not yet on dialysis #Intellectual disability Pt having increasing difficulty caring for himself Has caregivers in during the day but alone overnight POAs are sisters and they are interested in longterm placement for him at this time Please call sisters with updates: Ban ; Renay #Anxiety buspar #BPH flomax #HTN amlodipiine losartan FENGI: DM2, renal Code status: full code DVT prophylaxis: heparin Isolation: none Disposition: med tele Admission and Anticipated Discharge Date Admission Date: October 17, 2023 Subjective Patient seen and examined, denies any new complaints denies fevers or chills Review of Systems Review of Systems: All systems reviewed are negative, apart from the ones contained in the history. Physical Exam Physical Exam: The patient is awake, alert and oriented 3, well developed and well nourished, normocephalic and atraumatic, lying in bed and in no acute distress. HEENT--PERRL, EOMI, mucous membranes and oropharynx mildly dry Neck--supple. No JVD. No bruits. Thyroid normal, trachea midline, no adenopathy. Heart--normal S1 and S2. No murmurs, rubs or gallops. Lungs--clear bilaterally, no respiratory distress, no accessory muscle use. Abdomen--normal bowel sounds and soft. Extremities--no cyanosis or clubbing. No edema. Dermatologic--normal skin turgor, normal color, no abnormal lymph nodes, no rash. Neurologic--cranial nerves II through XII grossly intact. Rheumatologic--normal range of motion. Psychiatric--normal affect. Results & Data Results & Data Vital Signs (Past 12 Hours) Vital Signs Temp Pulse Pulse Resp BP Pulse Ox O2 Del Method 10/18/23 11:45 97.9 F 84 16 132/75 98 Room Air 10/18/23 08:00 Room Air 10/18/23 07:41 98.4 F 90 18 164/83 H 98 Room Air 10/18/23 07:00 94 H 10/18/23 04:00 100 H 10/18/23 02:49 99.5 F 107 H 20 128/66 95 Room Air PG Care Time/CCT Total # of Minutes Spent Total Time Spent with Patient: Total time spent is greater than 50% in coordination of care (as documented) at patient's floor/unit and/or counseling patient: Coding Level of Care Code 07303 SUB INP/OBS CARE 2/35MIN Diagnoses Hypoglycemia due to type 2 diabetes mellitus E11.649 Stage 5 chronic kidney disease due to type 2 diabetes mellitus E11.22; N18.5 End stage renal disease N18.6 Chronic venous insufficiency of lower extremity I87.2 Acute kidney injury superimposed on stage 5 chronic kidney disease, not on chronic dialysis N17.9; N18.5 Cognitive disorder F09 Anemia D64.9 Anxiety F41.9 Benign prostatic hyperplasia with urinary obstruction N40.1; N13.8 Learning disability F81.9 Hypertension I10 Leukocytosis D72.829 Time Spent (min) 35
[2023-10-18] MEDS: MAGNESIUM HYDROXIDE SUSP 30 ML UDC PO PRN (14:41)
[2023-10-18] MEDS: LOSARTAN POTASSIUM 50 MG TAB PO SCH (20:19)
[2023-10-18] MEDS: GABAPENTIN 300 MG CAP PO SCH (20:20)
[2023-10-18] MEDS: SIMVASTATIN 20 MG TAB PO SCH (20:20)
--- NOTE | 2023-10-18 22:00 | Billing Data ---
Date of Service October 18, 2023 Coding Level of Care Code 52637 INT INP/OBS CARE
--- NOTE | 2023-10-19 06:55 | Electrocardiogram Report ---
Test Reason : Blood Pressure : / mmHG Vent. Rate : 118 BPM Atrial Rate : 118 BPM P-R Int : 194 ms QRS Dur : 084 ms QT Int : 302 ms P-R-T Axes : 079 088 065 degrees QTc Int : 423 ms Sinus tachycardia Otherwise normal ECG When compared with ECG of 20-AUG-2023 13:20, Questionable change in QRS axis Confirmed by Alcon Sanchez ([id number]) on 10/19/2023 6:54:49 AM Referred By: REFERRED SELF Confirmed By:Alcon Sanchez
[2023-10-19 07:18] LABS: Hematocrit (blood only) 35.1 % (42.0-52.0); Hemoglobin 11.3 g/dl (14.0-18.0); Mean Corpuscular Hemoglobin 29.9 pg (25.0-34.0); Mean Corpuscular Hgb Conc 32.2 g/dL (32.0-36.0); Mean Corpuscular Volume 92.9 fL (80.0-100.0); Mean Platelet Volume 9.5 fL (9.4-12.4); Platelet Count 187 K/uL (130-400); RDW Coefficient of Variation 12.1 % (11.5-14.5); RDW Standard Deviation 41.7 fL (36.4-46.3); Red Blood Count 3.78 M/uL (4.70-6.10); White Blood Count 12.55 K/ul (4.8-10.8)
[2023-10-19 07:53] LABS: Anion Gap 11 (3-11); BUN Creatinine Ratio 15.7 (10-20); Blood Urea Nitrogen 68 mg/dl (6-23); Calcium 9.2 mg/dl (8.6-10.3); Carbon Dioxide 25 mmol/L (21-32); Chloride 101 mmol/L (98-107); Creatinine Clr Calc Pharmacy 19.9 ml/min; Est GFR (African American) 15.8 ml/min; Est GFR (Non-African American) 13.6 ml/min; Glucose 194 mg/dl (70-99(Fasting)); Sodium 137 mmol/L (136-145)
--- NOTE | 2023-10-19 12:37 | Hospitalist Progress Note ---
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 #T2DM Glucose in normal range since arrival to ED Will hold home insulin and cover with ISS Continue to monitor #Leukocytosis Unclear source CXR, procal, UA negative KUB, COVID, Flu, RSV negative Given CTX x1 in ED Will hold off on antibiotics, was probably stress related WBC is trending down #KIRK on CKD-V pre renal due to decreased oral intake vs progression of CKD Gentle hydration fistula in place, not yet on dialysis #Intellectual disability Pt having increasing difficulty caring for himself Has caregivers in during the day but alone overnight POAs are sisters and they are interested in watermelon inspector placement for him at this time Plan is for placement #Anxiety buspar #BPH flomax #HTN amlodipiine losartan FENGI: DM2, renal Code status: full code DVT prophylaxis: heparin Isolation: none Disposition: Plan is for placement Please call sisters with updates: Ban ; Renay Admission and Anticipated Discharge Date Admission Date: October 17, 2023 Subjective Patient seen and examined, denies any new complaints denies fevers or chills Review of Systems Review of Systems: All systems reviewed are negative, apart from the ones contained in the history. Physical Exam Physical Exam: The patient is awake, alert and oriented 3, well developed and well nourished, normocephalic and atraumatic, lying in bed and in no acute distress. HEENT--PERRL, EOMI, mucous membranes and oropharynx mildly dry Neck--supple. No JVD. No bruits. Thyroid normal, trachea midline, no adenopathy. Heart--normal S1 and S2. No murmurs, rubs or gallops. Lungs--clear bilaterally, no respiratory distress, no accessory muscle use. Abdomen--normal bowel sounds and soft. Extremities--no cyanosis or clubbing. No edema. Dermatologic--normal skin turgor, normal color, no abnormal lymph nodes, no rash. Neurologic--cranial nerves II through XII grossly intact. Rheumatologic--normal range of motion. Psychiatric--normal affect. Results & Data Results & Data Vital Signs (Past 12 Hours) Vital Signs Temp Pulse Pulse Resp BP Pulse Ox O2 Del Method 10/19/23 10:49 97.9 F 79 15 110/69 98 Room Air 10/19/23 08:27 79 10/19/23 07:35 98.4 F 94 H 18 179/86 H 100 Room Air 10/19/23 03:14 98.2 F 88 18 146/71 H 98 Room Air PG Care Time/CCT Total # of Minutes Spent Total Time Spent with Patient: Total time spent is greater than 50% in coordination of care (as documented) at patient's floor/unit and/or counseling patient: Coding Level of Care Code 50960 SUB INP/OBS CARE 2/35MIN Diagnoses Hypoglycemia due to type 2 diabetes mellitus E11.649 Stage 5 chronic kidney disease due to type 2 diabetes mellitus E11.22; N18.5 End stage renal disease N18.6 Chronic venous insufficiency of lower extremity I87.2 Acute kidney injury superimposed on stage 5 chronic kidney disease, not on chronic dialysis N17.9; N18.5 Cognitive disorder F09 Anemia D64.9 Anxiety F41.9 Benign prostatic hyperplasia with urinary obstruction N40.1; N13.8 Learning disability F81.9 Hypertension I10 Leukocytosis D72.829 Time Spent (min) 35
[2023-10-19] MEDS: LANTUS PER UNIT CHARGE SQ SCH (20:46)
[2023-10-20 06:45] LABS: Hematocrit (blood only) 31.3 % (42.0-52.0); Hemoglobin 10.3 g/dl (14.0-18.0); Mean Corpuscular Hemoglobin 29.9 pg (25.0-34.0); Mean Corpuscular Hgb Conc 32.9 g/dL (32.0-36.0); Mean Platelet Volume 9.2 fL (9.4-12.4); Platelet Count 167 K/uL (130-400); RDW Coefficient of Variation 12.2 % (11.5-14.5); RDW Standard Deviation 40.3 fL (36.4-46.3); Red Blood Count 3.44 M/uL (4.70-6.10)
[2023-10-20 07:06] LABS: BUN Creatinine Ratio 16.1 (10-20); Calcium 8.6 mg/dl (8.6-10.3); Creatinine Clr Calc Pharmacy 17.6 ml/min; Est GFR (African American) 13.5 ml/min; Est GFR (Non-African American) 11.7 ml/min; Potassium 3.6 mmol/L (3.5-5.1)
--- NOTE | 2023-10-20 09:25 | Nephrology Consultation ---
Date of Consultation October 20, 2023 Assessment & Plan (1) Acute kidney injury superimposed on stage 5 chronic kidney disease, not on chronic dialysis: Non-oliguric. Urine microscopy acellular. Electrolytes acceptable. Medications are currently appropriately dosed for kidney function. Volume status acceptable. May continue furosemide per home Rx. No urgent indication for dialysis at this time. Hold Jardiance. Maintain renal diet with sodium, potassium, and fluid restriction. Repeat metabolic profile tomorrow AM. (2) Stage 5 chronic kidney disease due to type 2 diabetes mellitus: CKD V A3 attributed to DKD. Followed by Dr. Alejandro as outpatient. Baseline crea tinine 4.0-4.5 mg/dL. Rt UE AVF placed March 2023. Transposed in July. May continue losartan as Rx for now with close monitoring. (3) Leukocytosis: (4) Vomiting: Hold Velphoro. Management of constipation per hospitalist. (5) Secondary hyperparathyroidism of renal origin: Serum calcium acceptable. Remains on calcitriol 0.25 mg daily. (6) Hypertension: Maintained on amlodipine, losartan, and furosemide per home Rx. (7) Anemia: Maintained on Procrit monthly. Hgb >10, stable. History of Present Illness Reason for Consultation: CKD stage5 Requesting Physician: Stefan Sage MD Attending Physician: Stefan Sage MD History of Present Illness Mr. Bin Miles is a 62 year-old male with CKD V A3 attributed to DKD. Baseline creatinine 4.0-4.5 mg/dL. Bin follows in the [facility] [place]rology clinic with Dr. Alejandro. He underwent placement of a R UE RC AVF in March followed by transposition in July. Surgery was performed by Dr. Bennett. Bin describes persistent nausea and constipation following his most recent surgery. He states that he often goes 3-4 days without moving his bowels. His appetite has been poor. He believes that Velphoro is contributing. He also reports some increased lower extremity edema and weakness. Bin has a degree of intellectual disability and is a somewhat poor historian. He expressed a lot of anxiety regarding potential need for dialysis. He has had several recent hypoglycemic episodes. He presented to [facility] yesterday with hypoglycemia and weakness. Serum creatinine elevated at 4.9 mg/dL. Electrolytes otherwise acceptable. Allergies Allergy/AdvReac Type Severity Reaction Status Date / Time lisinopril Allergy Intermediate scratchy Verified 10/17/23 21:00 throat Home Medications Medication Instructions Recorded Confirmed Type blood-glucose meter (Blood Glucose #1 ea 03/31/19 10/02/23 Rx Monitoring kit) aspirin 81 mg tablet,delayed 81 mg PO QAM 05/24/19 10/17/23 History release acetaminophen 500 mg tablet 500 mg PO Q6H PRN Pain 02/11/20 10/17/23 History (Tylenol Extra Strength) glucose 4 gram chewable tablet 4 g PO Q15M PRN hypoglycemia #30 09/04/20 10/17/23 Rx (Dex4 Glucose) tabs blood sugar diagnostic (OneTouch 12/28/20 10/02/23 History Ultra Blue Test Strip) lancets 28 gauge (OneTouch #100 ea 12/28/20 10/02/23 Rx Neuronetrix Lancing Devices) albuterol sulfate 90 mcg/actuation 2 inh inhalation Q6H PRN Shortness 01/31/22 10/17/23 History aerosol inhaler Of Breath Or Wheezing clotrimazole 1 % topical cream 1 applic topical BID #90 grams 05/20/22 10/17/23 Rx cane #1 ea 10/13/22 10/02/23 Rx simvastatin 20 mg tablet 20 mg PO QPM #90 tabs 11/04/22 10/17/23 Rx Shower Chair #1 ea 11/25/22 10/02/23 Rx Handicap Walk In Shower #1 ea 12/15/22 10/02/23 Rx furosemide 40 mg tablet 40 mg PO BID #180 tabs 12/15/22 10/17/23 Rx compress.stocking,knee,reg,med #2 ea 12/29/22 10/02/23 Rx amlodipine 5 mg tablet 5 mg PO QAM #90 tabs 02/21/23 10/17/23 Rx triamcinolone acetonide 0.5 % 1 applic topical BID PRN skin 03/15/23 10/17/23 Rx topical cream irritation #60 grams ferrous sulfate 325 mg (65 mg 325 mg PO BID #180 tabs 03/22/23 10/17/23 Rx iron) tablet losartan 100 mg tablet 100 mg PO QPM #90 tabs 03/22/23 10/17/23 Rx tamsulosin 0.4 mg capsule 0.4 mg PO QAM #90 caps 03/24/23 10/17/23 Rx peg 400-propylene glycol (PF) 0.4 1 drp ophthalmic (eye) TID PRN Dry 04/11/23 10/17/23 History %-0.3 % eye drops in a dropperette Eyes (Systane (PF)) buspirone 15 mg tablet 15 mg PO BID #180 tabs 05/16/23 10/17/23 Rx docusate sodium 100 mg capsule 100 mg PO BID #180 caps 05/16/23 10/17/23 Rx (Colace) calcitriol 0.25 mcg capsule 0.25 mcg PO QAM #90 caps 06/13/23 10/17/23 Rx pen needle, diabetic 32 gauge x #400 ea 06/15/23 10/02/23 Rx 5/32" (BD Ultra-Fine Daria Pen Needle) blood-glucose meter,continuous #1 ea 06/19/23 10/02/23 Rx (FreeStyle [place] 3 [place]) empagliflozin 10 mg tablet 10 mg PO QAM 07/26/23 10/17/23 History (Jardiance) insulin lispro 100 unit/mL 15 unit subcut TIDM 07/26/23 10/17/23 History subcutaneous pen (Humalog KwikPen (U-100) Insulin) gabapentin 300 mg capsule 300 mg PO QPM #90 caps 09/07/23 10/17/23 Rx epoetin rosey 40,000 unit/mL 0 unit subcut MONTHLY 09/27/23 10/17/23 History injection solution (Procrit) sucroferric oxyhydroxide 500 mg 500 mg PO TIDWMEAL #90 tabs 10/11/23 10/17/23 Rx chewable tablet (Velphoro) insulin glargine 100 unit/mL (3 20 unit (0.2 mL) subcut HS #45 mL 10/13/23 10/17/23 Rx mL) subcutaneous pen (Lantus Solostar U-100 Insulin) Patient History Medical History Diabetic retinopathy History of OCD (obsessive compulsive disorder) Obesity (BMI 30.0-34.9) End stage renal disease Hypertension Adult attention deficit disorder Anxiety Seasonal allergies Mild sleep apnea Stage 4 chronic kidney disease Dyslipidemia Diabetes mellitus Hx of Clostridium difficile infection states no issues in years Dysphagia takes pills w/ applesauce Poor historian History of COVID-19 02/2021- flu like symptoms>resolved Herniated disc pt and POA unsure Glaucoma Surgical History Hx of vascular surgery 03/2023, right AC basilic vein fistula creation History of colonoscopy History of left cataract extraction History of right cataract extraction History of testicular surgery Hydrocele repair. History of hernia repair History of laparoscopic cholecystectomy Family History Mother Alzheimer disease Sister Hypertension Father Prostate cancer Other No family history of adverse response to anesthesia Denies family history of Ovarian cancer Myocardial infarction Breast cancer Colorectal cancer Social History Smoking Status: Never smoker Second Hand Exposure: No; Do You Dip or Chew Tobacco: No; Hx Alcohol Use: No Hx Substance Use: No Preferred Language: Yoruba Communication Ability: Effective Communication Ability Comment: vision impaired, still signs own consents Visual Impairment: Limited Hearing Ability: Normal 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 Beliefs That Will Affect Care: None marital status: Single Current Living Situation: Alone Current Living Situation Comment: has care givers but only in am current occupational status: disabled Other Information That Helps Us Care for You: No Feels Safe at Home: No Is there a partner from a previous relationship who is making you feel unsafe now?: No Any Concerns about Your Family Situation: No Would You Like to Speak to Someone About Your Situation: No Safety Concerns: Feels Safe At This Time Childhood Exposure to Second-Hand Smoke: No Diet: regular Diet Comment: regular caffeine: No (hot tea once in a while) during the past year weight has: remained stable Dental Care, Regularly: Yes Physical Activity Frequency: 1-2 Times per Week Seatbelt Use: always Sunscreen Use: No Assistive Devices: Cane Review of Systems Review of Systems: All systems reviewed & are unremarkable except as noted in HPI & below Physical Exam Constitutional: well developed; no acute distress Eyes: no scleral abnormality and no corneal abnormality ENMT: Mouth: no oral mucosal abnormality and oral mucous membranes not dry Neck: normal visual inspection and trachea midline Respiratory: normal respiratory effort Auscultation: lungs clear to auscultation bilaterally Cardiovascular: Rate/Rhythm: regular rate Heart Sounds: normal S1 and normal S2 Extremities: normal capillary refill, + edema and + AV fistula Musculoskeletal: Extremities: no cyanosis and no clubbing Skin: normal turgor; no lesions Neurologic: Motor/Sensory: no tremor and no asterixis Psychiatric: Orientation: alert and oriented x 3 Results & Data Vital Signs (Past 12 Hours) Vital Signs Temp Pulse Pulse Resp BP Pulse Ox O2 Del Method 10/20/23 08:19 79 10/20/23 07:36 36.3 C L 93 H 18 172/87 H 98 Room Air 10/20/23 03:48 36.7 C 87 18 151/81 H 99 Room Air 10/19/23 23:51 36.6 C 84 18 139/79 99 Room Air 10/19/23 22:46 86 Laboratory Results Laboratory Results - last 24 hr 10/19/23 10/19/23 10/19/23 12:08 17:11 20:22 WBC RBC Hgb Hct MCV MCH MCHC RDW Std Deviation RDW Coeff of Vinay Plt Count MPV Sodium Potassium Chloride Carbon Dioxide Anion Gap BUN Creatinine Est Cr Clr Drug Dosing Est GFR ( Amer) Est GFR (Non-Af Amer) BUN/Creatinine Ratio Glucose POC Glucose 291 H 210 H 239 H Calcium 10/20/23 10/20/23 06:15 08:16 WBC 11.20 H RBC 3.44 L Hgb 10.3 L Hct 31.3 L MCV 91.0 MCH 29.9 MCHC 32.9 RDW Std Deviation 40.3 RDW Coeff of Vinay 12.2 Plt Count 167 MPV 9.2 L Sodium 133 L Potassium 3.6 Chloride 98 Carbon Dioxide 24 Anion Gap 11 BUN 79 H Creatinine 4.90 H* D Est Cr Clr Drug Dosing 17.6 Est GFR ( Amer) 13.5 Est GFR (Non-Af Amer) 11.7 BUN/Creatinine Ratio 16.1 Glucose 182 H POC Glucose 231 H Calcium 8.6 Diagnostic Findings XR chest 1V portable Comparison: Comparison is made to chest radiograph 08/20/2023 FINDINGS: No lines and tubes are seen. Calcified aortic knob is seen. The lungs are clear. No evidence of pleural effusion or pneumothorax. IMPRESSION: No acute chest disease. PG Care Time/CCT Total # of Minutes Spent Total Time Spent with Patient: Total time spent is greater than 50% in coordination of care (as documented) at patient's floor/unit and/or counseling patient: Coding Level of Care Code 61311 IN/OBS CONSULT LVL 4,60M Diagnoses Acute kidney injury superimposed on stage 5 chronic kidney disease, not on chronic dialysis N17.9; N18.5 Stage 5 chronic kidney disease due to type 2 diabetes mellitus E11.22; N18.5 Leukocytosis D72.829 Vomiting R11.10 Secondary hyperparathyroidism of renal origin N25.81 Hypertension I10 Anemia D64.9
--- NOTE | 2023-10-20 11:37 | Hospitalist Progress Note ---
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 #T2DM Glucose in normal range since arrival to ED Will hold home insulin and cover with ISS Continue to monitor #Leukocytosis Unclear source CXR, procal, UA negative KUB, COVID, Flu, RSV negative Given CTX x1 in ED Will hold off on antibiotics, was probably stress related WBC is trending down #KIRK on CKD-V pre renal due to decreased oral intake vs progression of CKD Gentle hydration fistula in place, not yet on dialysis #Intellectual disability Pt having increasing difficulty caring for himself Has caregivers in during the day but alone overnight POAs are sisters and they are interested in buttermaker continuous churn placement for him at this time Plan is for placement #Anxiety buspar #BPH flomax #HTN amlodipiine losartan FENGI: DM2, renal Code status: full code DVT prophylaxis: heparin Isolation: none Disposition: Plan is for placement Please call sisters with updates: Ban ; Renay Admission and Anticipated Discharge Date Admission Date: October 17, 2023 Subjective Patient seen and examined, denies any new complaints denies fevers or chills, Awaiting placement Review of Systems Review of Systems: All systems reviewed are negative, apart from the ones contained in the history. Physical Exam Physical Exam: The patient is awake, alert and oriented 3, well developed and well nourished, normocephalic and atraumatic, lying in bed and in no acute distress. HEENT--PERRL, EOMI, mucous membranes and oropharynx mildly dry Neck--supple. No JVD. No bruits. Thyroid normal, trachea midline, no adenopathy. Heart--normal S1 and S2. No murmurs, rubs or gallops. Lungs--clear bilaterally, no respiratory distress, no accessory muscle use. Abdomen--normal bowel sounds and soft. Extremities--no cyanosis or clubbing. No edema. Dermatologic--normal skin turgor, normal color, no abnormal lymph nodes, no rash. Neurologic--cranial nerves II through XII grossly intact. Rheumatologic--normal range of motion. Psychiatric--normal affect. Results & Data Results & Data Vital Signs (Past 12 Hours) Vital Signs Temp Pulse Pulse Resp BP Pulse Ox O2 Del Method 10/20/23 11:24 98.4 F 88 18 155/106 H 96 Room Air 10/20/23 08:19 79 10/20/23 07:36 97.3 F L 93 H 18 172/87 H 98 Room Air 10/20/23 03:48 98.1 F 87 18 151/81 H 99 Room Air 10/19/23 23:51 97.9 F 84 18 139/79 99 Room Air PG Care Time/CCT Total # of Minutes Spent Total Time Spent with Patient: Total time spent is greater than 50% in coordination of care (as documented) at patient's floor/unit and/or counseling patient: Coding Level of Care Code 51787 SUB INP/OBS CARE 2/35MIN Diagnoses Hypoglycemia due to type 2 diabetes mellitus E11.649 Stage 5 chronic kidney disease due to type 2 diabetes mellitus E11.22; N18.5 End stage renal disease N18.6 Chronic venous insufficiency of lower extremity I87.2 Acute kidney injury superimposed on stage 5 chronic kidney disease, not on chronic dialysis N17.9; N18.5 Cognitive disorder F09 Anemia D64.9 Anxiety F41.9 Benign prostatic hyperplasia with urinary obstruction N40.1; N13.8 Learning disability F81.9 Hypertension I10 Leukocytosis D72.829 Time Spent (min) 35
[2023-10-21 06:54] LABS: BUN Creatinine Ratio 16.3 (10-20); Calcium 8.5 mg/dl (8.6-10.3); Creatinine Clr Calc Pharmacy 16.1 ml/min; Est GFR (African American) 12.2 ml/min; Est GFR (Non-African American) 10.5 ml/min; Potassium 3.6 mmol/L (3.5-5.1)
--- NOTE | 2023-10-21 08:58 | Nephrology Progress Note ---
Date of Service October 21, 2023 Assessment & Plan (1) Acute kidney injury superimposed on stage 5 chronic kidney disease, not on chronic dialysis: Plan: * Slow progressive rise in serum creatinine. Clinically suspect patient has ESKD. * Volume status and electrolyte balance remain acceptable at this time. No acute indication for hemodialysis today. * Discussed the indications/benefits of dialysis with the patient today. 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 He wishes to monitor his kidney function over the weekend. If no improvement he will then start dialysis and needs set up for outpatient dialysis and transportation * Will order 24-hour urine collection for creatinine clearance, total protein * Patient indicated that if he starts dialysis he would consider admission to an assisted living facility near his family in [place], [place] (2) Hypertension: Plan: * Stop losartan due to progressive renal dysfunction. * Hold furosemide * Continue amlodipine * Monitor blood pressure (3) Stage 5 chronic kidney disease due to type 2 diabetes mellitus: Plan: * CKD V A3 attributed to DKD. Followed by Dr. Alejandro as outpatient. Baseline creatinine 4.0-4.5 mg/dL. * Rt UE AVF placed March 2023. Transposed in July. (4) Vomiting: Plan: * Hold Velphoro. Management of constipation per hospitalist. (5) Secondary hyperparathyroidism of renal origin: Plan: * Serum calcium acceptable. Remains on calcitriol 0.25 mg daily. (6) Anemia: Plan: * Maintained on Procrit monthly. Hgb >10, stable. Admission and Anticipated Discharge Date Admission Date: October 17, 2023 Subjective Mr. Miles was evaluated in his hospital room this morning. He appeared quite anxious and at times was tearful about being in the hospital. He denied fever, flank pain, dyspnea or uremic symptoms. He reports that he lives alone near [place] and requires home health care to assist with ADLs Review of Systems Constitutional: no fever Eyes: no problem reported Ear, Nose, Mouth, Throat: no problem reported Respiratory: no cough and no dyspnea Cardiovascular: no chest pain Gastrointestinal: no abdominal pain, no nausea, no vomiting and no diarrhea/loose stools Integumentary: no rash Physical Exam Constitutional: not in distress Eyes: PERRL, conjunctivae normal, anicteric sclerae ENMT: external ear and nose normal, oropharynx normal Neck: trachea midline, no thyromegaly Respiratory: normal respiratory effort, lungs clear to auscultation Cardiovascular: Rate/Rhythm: regular rate and regular rhythm Extremities: + edema (Trace pretibial) and + AV fistula (Positive bruit) Gastrointestinal (Abdomen): normal bowel sounds, soft, nontender, no hepatosplenomegaly Skin: no rashes, warm and dry Neurologic: Speech / Cognition: normal speech Results & Data Vital Signs (Past 12 Hours) Vital Signs Temp Pulse Pulse Resp BP Pulse Ox O2 Del Method 10/21/23 07:41 36.7 C 83 16 152/76 H 98 Room Air 10/21/23 05:48 81 10/21/23 03:59 36.9 C 88 16 144/66 H 98 Room Air 10/20/23 22:02 36.9 C 90 16 133/74 96 Room Air 10/20/23 21:56 86 Laboratory Results Laboratory Results - last 24 hr 10/20/23 10/20/23 10/20/23 12:29 16:59 20:39 Sodium Potassium Chloride Carbon Dioxide Anion Gap BUN Creatinine Est Cr Clr Drug Dosing Est GFR ( Amer) Est GFR (Non-Af Amer) BUN/Creatinine Ratio Glucose POC Glucose 229 H 109 H 169 H Calcium 10/21/23 10/21/23 05:49 07:58 Sodium 135 L Potassium 3.6 Chloride 100 Carbon Dioxide 24 Anion Gap 11 BUN 87 H Creatinine 5.34 H* D Est Cr Clr Drug Dosing 16.1 Est GFR ( Amer) 12.2 Est GFR (Non-Af Amer) 10.5 BUN/Creatinine Ratio 16.3 Glucose 133 H POC Glucose 150 H Calcium 8.5 L PG Care Time/CCT Total # of Minutes Spent Total Time Spent with Patient: Total time spent is greater than 50% in coordination of care (as documented) at patient's floor/unit and/or counseling patient: Coding Level of Care Code 64107 SUB INP/OBS CARE 3/50MIN Diagnoses Acute kidney injury superimposed on stage 5 chronic kidney disease, not on chronic dialysis N17.9; N18.5 Hypertension I10 Stage 5 chronic kidney disease due to type 2 diabetes mellitus E11.22; N18.5 Vomiting R11.10 Secondary hyperparathyroidism of renal origin N25.81 Anemia D64.9
[2023-10-21] MEDS: POLYETHYLENE (MIRALAX) 17 GM PACK PO SCH (10:39)
--- NOTE | 2023-10-21 14:36 | Hospitalist Progress Note ---
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 #T2DM Glucose in normal range since arrival to ED Will hold home insulin and cover with ISS Continue to monitor #Leukocytosis Unclear source CXR, procal, UA negative KUB, COVID, Flu, RSV negative Given CTX x1 in ED Will hold off on antibiotics, was probably stress related WBC is trending down #KIRK on CKD-V pre renal due to decreased oral intake vs progression of CKD Gentle hydration fistula in place, not yet on dialysis #Intellectual disability Pt having increasing difficulty caring for himself Has caregivers in during the day but alone overnight POAs are sisters and they are interested in intermodal customer service placement for him at this time Plan is for placement #Anxiety buspar #BPH flomax #HTN amlodipiine losartan FENGI: DM2, renal Code status: full code DVT prophylaxis: heparin Isolation: none Disposition: Plan is for placement Please call sisters with updates: Ban ; Renay Admission and Anticipated Discharge Date Admission Date: October 17, 2023 Subjective Patient seen and examined, no new complaints today, tolerating diet. Said he has not had a bowel movement in a few days. Review of Systems Review of Systems: All systems reviewed are negative, apart from the ones contained in the history. Physical Exam Physical Exam: The patient is awake, alert and oriented 3, well developed and well nourished, normocephalic and atraumatic, lying in bed and in no acute distress. HEENT--PERRL, EOMI, mucous membranes and oropharynx mildly dry Neck--supple. No JVD. No bruits. Thyroid normal, trachea midline, no adenopathy. Heart--normal S1 and S2. No murmurs, rubs or gallops. Lungs--clear bilaterally, no respiratory distress, no accessory muscle use. Abdomen--normal bowel sounds and soft. Extremities--no cyanosis or clubbing. No edema. Dermatologic--normal skin turgor, normal color, no abnormal lymph nodes, no rash. Neurologic--cranial nerves II through XII grossly intact. Rheumatologic--normal range of motion. Psychiatric--normal affect. Results & Data Results & Data Vital Signs (Past 12 Hours) Vital Signs Temp Pulse Pulse Resp BP Pulse Ox O2 Del Method 10/21/23 13:02 83 10/21/23 11:50 97.7 F 80 16 149/80 H 99 Room Air 10/21/23 07:41 98.1 F 83 16 152/76 H 98 Room Air 10/21/23 05:48 81 10/21/23 03:59 98.4 F 88 16 144/66 H 98 Room Air PG Care Time/CCT Total # of Minutes Spent Total Time Spent with Patient: Total time spent is greater than 50% in coordination of care (as documented) at patient's floor/unit and/or counseling patient: Coding Level of Care Code 08768 SUB INP/OBS CARE 2/35MIN Diagnoses Hypoglycemia due to type 2 diabetes mellitus E11.649 Stage 5 chronic kidney disease due to type 2 diabetes mellitus E11.22; N18.5 End stage renal disease N18.6 Chronic venous insufficiency of lower extremity I87.2 Acute kidney injury superimposed on stage 5 chronic kidney disease, not on chronic dialysis N17.9; N18.5 Cognitive disorder F09 Anemia D64.9 Anxiety F41.9 Benign prostatic hyperplasia with urinary obstruction N40.1; N13.8 Learning disability F81.9 Hypertension I10 Leukocytosis D72.829 Time Spent (min) 35
[2023-10-22 06:32] LABS: Hematocrit (blood only) 29.6 % (42.0-52.0); Hemoglobin 9.9 g/dl (14.0-18.0); Mean Corpuscular Hemoglobin 30.3 pg (25.0-34.0); Mean Corpuscular Hgb Conc 33.4 g/dL (32.0-36.0); Mean Corpuscular Volume 90.5 fL (80.0-100.0); Mean Platelet Volume 9.3 fL (9.4-12.4); Platelet Count 176 K/uL (130-400); RDW Standard Deviation 39.5 fL (36.4-46.3); Red Blood Count 3.27 M/uL (4.70-6.10); White Blood Count 10.99 K/ul (4.8-10.8)
[2023-10-22 06:52] LABS: BUN Creatinine Ratio 18.1 (10-20); Calcium 8.7 mg/dl (8.6-10.3); Creatinine Clr Calc Pharmacy 17.3 ml/min; Est GFR (African American) 13.1 ml/min; Est GFR (Non-African American) 11.3 ml/min; Potassium 3.9 mmol/L (3.5-5.1)
--- NOTE | 2023-10-22 09:10 | Nephrology Progress Note ---
Date of Service October 22, 2023 Assessment & Plan (1) Acute kidney injury superimposed on stage 5 chronic kidney disease, not on chronic dialysis: Plan: * Slow progressive rise in serum creatinine. Clinically suspect patient has ESKD. * Volume status and electrolyte balance remain acceptable at this time. No acute indication for hemodialysis today. * Discussed the indications/benefits of dialysis with the patient today. 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 He wishes to monitor his kidney function over the weekend. If no improvement he will then start dialysis and needs set up for outpatient dialysis and transportation * Await results of 24-hour urine collection for creatinine clearance, total protein * Patient indicated that if he starts dialysis he would consider admission to an assisted living facility near his family in [place], [place] * Creatinine is relatively stable at 5.0, however patient has progressive azotemia. BUN is 91 today. Will recheck BMP in a.m. (2) Hypertension: Plan: * Losartan stopped due to progressive renal dysfunction. * Hold furosemide * Continue amlodipine * Monitor blood pressure (3) Stage 5 chronic kidney disease due to type 2 diabetes mellitus: Plan: * CKD V A3 attributed to DKD. Followed by Dr. Alejandro as outpatient. Baseline creatinine 4.0-4.5 mg/dL. * Rt UE AVF placed March 2023. Transposed in July. (4) Vomiting: Plan: * Hold Velphoro. Management of constipation per hospitalist. (5) Secondary hyperparathyroidism of renal origin: Plan: * Serum calcium acceptable. Remains on calcitriol 0.25 mg daily. (6) Anemia: Plan: * Will obtain iron studies with next lab draw Admission and Anticipated Discharge Date Admission Date: October 17, 2023 Subjective Mr. Miles was evaluated in his hospital room this morning. He remains anxious about being in the hospital. He denied fever, flank pain, dyspnea or uremic symptoms. He voiced no new medical concerns. Review of Systems Constitutional: no fever Eyes: no problem reported Ear, Nose, Mouth, Throat: no problem reported Respiratory: no cough and no dyspnea Cardiovascular: no chest pain Gastrointestinal: no abdominal pain, no nausea, no vomiting and no diarrhea/loose stools Integumentary: no rash Physical Exam Constitutional: not in distress Eyes: PERRL, conjunctivae normal, anicteric sclerae ENMT: external ear and nose normal, oropharynx normal Neck: trachea midline, no thyromegaly Respiratory: normal respiratory effort, lungs clear to auscultation Cardiovascular: Rate/Rhythm: regular rate and regular rhythm Extremities: + edema (Trace pretibial) and + AV fistula (Positive bruit) Gastrointestinal (Abdomen): normal bowel sounds, soft, nontender, no hepatosplenomegaly Skin: no rashes, warm and dry Neurologic: Speech / Cognition: normal speech Results & Data Vital Signs (Past 12 Hours) Vital Signs Temp Pulse Pulse Resp BP Pulse Ox O2 Del Method 10/22/23 07:40 36.7 C 83 16 115/63 97 Room Air 10/22/23 05:44 78 10/22/23 02:32 36.8 C 81 18 106/62 99 Room Air 10/21/23 22:01 36.5 C 84 16 109/55 L 97 Room Air 10/21/23 21:50 82 Laboratory Results Laboratory Results - last 24 hr 10/21/23 10/21/23 10/21/23 11:50 11:58 17:17 WBC RBC Hgb Hct MCV MCH MCHC RDW Std Deviation RDW Coeff of Vinay Plt Count MPV Sodium Potassium Chloride Carbon Dioxide Anion Gap BUN Creatinine 5.22 H* Est Cr Clr Drug Dosing Est GFR ( Amer) Est GFR (Non-Af Amer) BUN/Creatinine Ratio Glucose POC Glucose 258 H 99 Calcium 10/21/23 10/22/23 10/22/23 19:50 05:37 08:16 WBC 10.99 H RBC 3.27 L Hgb 9.9 L Hct 29.6 L MCV 90.5 MCH 30.3 MCHC 33.4 RDW Std Deviation 39.5 RDW Coeff of Vinay 12.0 Plt Count 176 MPV 9.3 L Sodium 132 L Potassium 3.9 Chloride 97 L Carbon Dioxide 24 Anion Gap 11 BUN 91 H Creatinine 5.03 H* Est Cr Clr Drug Dosing 17.3 Est GFR ( Amer) 13.1 Est GFR (Non-Af Amer) 11.3 BUN/Creatinine Ratio 18.1 Glucose 142 H POC Glucose 162 H 163 H Calcium 8.7 PG Care Time/CCT Total # of Minutes Spent Total Time Spent with Patient: Total time spent is greater than 50% in coordination of care (as documented) at patient's floor/unit and/or counseling patient: Coding Level of Care Code 94296 SUB INP/OBS CARE 3/50MIN Diagnoses Acute kidney injury superimposed on stage 5 chronic kidney disease, not on chronic dialysis N17.9; N18.5 Hypertension I10 Stage 5 chronic kidney disease due to type 2 diabetes mellitus E11.22; N18.5 Vomiting R11.10 Secondary hyperparathyroidism of renal origin N25.81 Anemia D64.9
[2023-10-22] MEDS: bisacodyL 10 MG SUPP PR STA (10:52)
--- NOTE | 2023-10-22 11:04 | Hospitalist Progress Note ---
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 #T2DM Glucose in normal range since arrival to ED Will hold home insulin and cover with ISS Continue to monitor #Leukocytosis Unclear source, Now within normal limits CXR, procal, UA negative KUB, COVID, Flu, RSV negative Given CTX x1 in ED Will hold off on antibiotics, was probably stress related WBC is trending down #KIRK on CKD-V pre renal due to decreased oral intake vs progression of CKD Gentle hydration fistula in place, not yet on dialysis Per nephrology, patient still reluctant to start hemodialysis although no urgent needs for now If the patient is going to start hemodialysis in the next few days, he is going to need to establish outpatient dialysis chair #Intellectual disability Pt having increasing difficulty caring for himself Has caregivers in during the day but alone overnight POAs are sisters and they are interested in long chain dyeing machine operator placement for him at this time Plan is for placement #Anxiety buspar #BPH flomax #HTN amlodipiine losartan FENGI: DM2, renal Code status: full code DVT prophylaxis: heparin Isolation: none Disposition: Plan is for placement Please call sisters with updates: Ban ; Renay Admission and Anticipated Discharge Date Admission Date: October 17, 2023 Subjective Patient seen and examined, has not had a bowel movement since admission. Review of Systems Review of Systems: All systems reviewed are negative, apart from the ones contained in the history. Physical Exam Physical Exam: The patient is awake, alert and oriented 3, well developed and well nourished, normocephalic and atraumatic, lying in bed and in no acute distress. HEENT--PERRL, EOMI, mucous membranes and oropharynx mildly dry Neck--supple. No JVD. No bruits. Thyroid normal, trachea midline, no adenopathy. Heart--normal S1 and S2. No murmurs, rubs or gallops. Lungs--clear bilaterally, no respiratory distress, no accessory muscle use. Abdomen--normal bowel sounds and soft. Extremities--no cyanosis or clubbing. No edema. Dermatologic--normal skin turgor, normal color, no abnormal lymph nodes, no rash. Neurologic--cranial nerves II through XII grossly intact. Rheumatologic--normal range of motion. Psychiatric--normal affect. Results & Data Results & Data Vital Signs (Past 12 Hours) Vital Signs Temp Pulse Pulse Resp BP Pulse Ox O2 Del Method 10/22/23 07:40 98.1 F 83 16 115/63 97 Room Air 10/22/23 05:44 78 10/22/23 02:32 98.2 F 81 18 106/62 99 Room Air PG Care Time/CCT Total # of Minutes Spent Total Time Spent with Patient: Total time spent is greater than 50% in coordination of care (as documented) at patient's floor/unit and/or counseling patient: Coding Level of Care Code 85007 SUB INP/OBS CARE 2/35MIN Diagnoses Hypoglycemia due to type 2 diabetes mellitus E11.649 Stage 5 chronic kidney disease due to type 2 diabetes mellitus E11.22; N18.5 End stage renal disease N18.6 Chronic venous insufficiency of lower extremity I87.2 Acute kidney injury superimposed on stage 5 chronic kidney disease, not on chronic dialysis N17.9; N18.5 Cognitive disorder F09 Anemia D64.9 Anxiety F41.9 Benign prostatic hyperplasia with urinary obstruction N40.1; N13.8 Learning disability F81.9 Hypertension I10 Leukocytosis D72.829 Time Spent (min) 35
[2023-10-22 12:24] LABS: Patient Weight 96.3 kg
[2023-10-22 12:53] LABS: Total Protein 24 Hour Urine 1744.8 mg/24 Hr (0-149.1); Urine Total Protein 69.1 mg/dl
[2023-10-22 13:11] LABS: Urine Creatinine 41.1 mg/dl
[2023-10-22 13:12] LABS: Creatinine Clearance Urine 11.3 ml/min (97-137)
[2023-10-23 06:51] LABS: Hematocrit (blood only) 31.1 % (42.0-52.0); Hemoglobin 10.7 g/dl (14.0-18.0); Mean Corpuscular Hemoglobin 30.2 pg (25.0-34.0); Mean Corpuscular Hgb Conc 34.4 g/dL (32.0-36.0); Mean Corpuscular Volume 87.9 fL (80.0-100.0); Mean Platelet Volume 9.1 fL (9.4-12.4); Platelet Count 197 K/uL (130-400); RDW Coefficient of Variation 11.9 % (11.5-14.5); RDW Standard Deviation 38.6 fL (36.4-46.3); Red Blood Count 3.54 M/uL (4.70-6.10); White Blood Count 11.18 K/ul (4.8-10.8)
[2023-10-23 07:27] LABS: BUN Creatinine Ratio 18.2 (10-20); Calcium 8.8 mg/dl (8.6-10.3); Creatinine Clr Calc Pharmacy 17.2 ml/min; Est GFR (African American) 13.2 ml/min; Est GFR (Non-African American) 11.4 ml/min; Potassium 3.9 mmol/L (3.5-5.1)
[2023-10-23 07:48] LABS: Ferritin 561.3 ng/ml (8-388)
--- NOTE | 2023-10-23 08:51 | Nephrology Progress Note ---
Date of Service October 23, 2023 Assessment & Plan (1) End-stage renal disease needing dialysis: Plan: * ESKD. Creatinine is stabilizing at 5.0 w/ mGFR 11 cc/min. Patient has progressive azotemia * Rt UE AVF placed March 2023. Transposed in July. * Indications/benefits/risks/alternatives to dialysis were discussed with the patient again today. He is agreeable to starting HD * Orders placed in EMR for 1st run HD today and HD RN notified * Will schedule 2nd HD tx for am * Will consult case management to set up outpatient HD at [facility] (Dr. Alejandro), arrange transportation and discuss assisted living options w/ pat ient (2) Hypertension: Plan: * Losartan stopped due to progressive renal dysfunction. * Hold furosemide * Continue amlodipine * Monitor blood pressure (3) Vomiting: Plan: * Hold Velphoro. Management of constipation per hospitalist. (4) Secondary hyperparathyroidism of renal origin: Plan: * Serum calcium acceptable. Remains on calcitriol 0.25 mg daily. (5) Anemia: Plan: * Hgb 10.7, iron sat 41%, ferritin 561. Will monitor Admission and Anticipated Discharge Date Admission Date: October 17, 2023 Subjective Mr. Miles was evaluated in his hospital room this morning. He denied fever, fl ank pain, dyspnea or uremic symptoms. He is agreeable to starting HD if needed. He requests consultation w/ case management as he will need assistance w/ transportation to and from outpatient HD and is considering assisted living Review of Systems Constitutional: no fever Eyes: no problem reported Ear, Nose, Mouth, Throat: no problem reported Respiratory: no cough and no dyspnea Cardiovascular: no chest pain Gastrointestinal: no abdominal pain, no nausea, no vomiting and no diarrhea/loose stools Integumentary: no rash Physical Exam Constitutional: not in distress Eyes: PERRL, conjunctivae normal, anicteric sclerae ENMT: external ear and nose normal, oropharynx normal Neck: trachea midline, no thyromegaly Respiratory: normal respiratory effort, lungs clear to auscultation Cardiovascular: Rate/Rhythm: regular rate and regular rhythm Extremities: + edema (Trace pretibial) and + AV fistula (Positive bruit) Gastrointestinal (Abdomen): normal bowel sounds, soft, nontender, no hepatosplenomegaly Skin: no rashes, warm and dry Neurologic: Speech / Cognition: normal speech Results & Data Vital Signs (Past 12 Hours) Vital Signs Temp Pulse Pulse Resp BP Pulse Ox O2 Del Method 10/23/23 07:41 36.9 C 83 16 164/70 H 98 Room Air 10/23/23 07:03 63 10/23/23 02:32 36.8 C 88 16 132/71 98 Room Air 10/22/23 21:21 36.3 C L 99 H 18 186/83 H 98 Room Air Laboratory Results Laboratory Results - last 24 hr 10/21/23 10/22/23 10/22/23 12:00 12:09 16:57 WBC RBC Hgb Hct MCV MCH MCHC RDW Std Deviation RDW Coeff of Vinay Plt Count MPV Sodium Potassium Chloride Carbon Dioxide Anion Gap BUN Creatinine Est Cr Clr Drug Dosing Est GFR ( Amer) Est GFR (Non-Af Amer) BUN/Creatinine Ratio Glucose POC Glucose 233 H 99 Calcium Iron TIBC Unsaturated IBC Transferrin % Sat Ferritin Urine Collection Time 24 Urine Total Volume 2525 Urine Creatinine 41.1 Ur Creatinine 24 Hour 1.0 Height (cm) 175.3 Weight (kg) 96.3 Creatinine Clearance 11.3 L Ur Total Protein 24 Hr 1744.8 H Urine Total Protein 69.1 10/22/23 10/23/23 10/23/23 20:28 06:08 07:46 WBC 11.18 H RBC 3.54 L Hgb 10.7 L Hct 31.1 L MCV 87.9 MCH 30.2 MCHC 34.4 RDW Std Deviation 38.6 RDW Coeff of Vinay 11.9 Plt Count 197 MPV 9.1 L Sodium 133 L Potassium 3.9 Chloride 98 Carbon Dioxide 24 Anion Gap 11 BUN 91 H Creatinine 5.00 H* Est Cr Clr Drug Dosing 17.2 Est GFR ( Amer) 13.2 Est GFR (Non-Af Amer) 11.4 BUN/Creatinine Ratio 18.2 Glucose 165 H POC Glucose 161 H 174 H Calcium 8.8 Iron 96 TIBC 236 L Unsaturated IBC 140 L Transferrin % Sat 41 Ferritin 561.3 H Urine Collection Time Urine Total Volume Urine Creatinine Ur Creatinine 24 Hour Height (cm) Weight (kg) Creatinine Clearance Ur Total Protein 24 Hr Urine Total Protein PG Care Time/CCT Total # of Minutes Spent Total Time Spent with Patient: Total time spent is greater than 50% in coordination of care (as documented) at patient's floor/unit and/or counseling patient: Coding Level of Care Code 79151 SUB INP/OBS CARE MIN Diagnoses End-stage renal disease needing dialysis N18.6; Z99.2 Hypertension I10 Vomiting R11.10 Secondary hyperparathyroidism of renal origin N25.81 Anemia D64.9
[2023-10-23] MEDS ORDERED: SODIUM CHLORIDE 0.9% 1,000 ML IV PRN (08:54)
[2023-10-23] MEDS: LIDOCAINE 4% CREAM 15 GM TUBE EXT PRN (10:40)
[2023-10-23 11:24] LABS: Hep B Surface Ag with confirm Negative (Negative)
[2023-10-23 11:33] LABS: Hepatitis B Surface Ab Quant < 3.00 mIU/mL (>or=10mIU/mL Immune); Hepatitis B Surface Antibody Non-Immune
--- NOTE | 2023-10-23 13:27 | Hospitalist Progress Note ---
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 #T2DM Glucose in normal range since arrival to ED Will hold home insulin and cover with ISS Continue to monitor #ESRD fistula in place, Patient has now agreed for hemodialysis. Per nephrology the first session of hemodialysis take place today and a couple more tomorrow. Before discharge, he is going to need to establish outpatient dialysis chair #Leukocytosis Unclear source, Now within normal limits CXR, procal, UA negative KUB, COVID, Flu, RSV negative Given CTX x1 in ED Will hold off on antibiotics, was probably stress related WBC is trending down #Intellectual disability Pt having increasing difficulty caring for himself Has caregivers in during the day but alone overnight POAs are sisters and they are interested in salvage determiner placement for him at this time Plan is for placement #Anxiety buspar #BPH flomax #HTN amlodipiine losartan FENGI: DM2, renal Code status: full code DVT prophylaxis: heparin Isolation: none Disposition: Plan is for placement, He will need to establish outpatient dialysis chair prior to discharge. Please call sisters with updates: Ban ; Renay Admission and Anticipated Discharge Date Admission Date: October 17, 2023 Subjective Patient has some concerns about who will transport him to and from hemodialysis when eventually he starts Review of Systems Review of Systems: All systems reviewed are negative, apart from the ones contained in the history. Physical Exam Physical Exam: The patient is awake, alert and oriented 3, well developed and well nourished, normocephalic and atraumatic, lying in bed and in no acute distress. HEENT--PERRL, EOMI, mucous membranes and oropharynx mildly dry Neck--supple. No JVD. No bruits. Thyroid normal, trachea midline, no adenopathy. Heart--normal S1 and S2. No murmurs, rubs or gallops. Lungs--clear bilaterally, no respiratory distress, no accessory muscle use. Abdomen--normal bowel sounds and soft. Extremities--no cyanosis or clubbing. No edema. Dermatologic--normal skin turgor, normal color, no abnormal lymph nodes, no rash. Neurologic--cranial nerves II through XII grossly intact. Rheumatologic--normal range of motion. Psychiatric--normal affect. Results & Data Results & Data Vital Signs (Past 12 Hours) Vital Signs Temp Pulse Pulse Pulse Resp BP BP 10/23/23 13:00 82 128/65 10/23/23 12:32 84 152/78 H 10/23/23 12:15 97.9 F 82 10/23/23 11:11 97.9 F 78 16 165/77 H 10/23/23 07:41 98.4 F 83 16 164/70 H 10/23/23 07:03 63 10/23/23 02:32 98.2 F 88 16 132/71 Pulse Ox O2 Del Method 10/23/23 13:00 10/23/23 12:32 10/23/23 12:15 10/23/23 11:11 100 Room Air 10/23/23 07:41 98 Room Air 10/23/23 07:03 10/23/23 02:32 98 Room Air PG Care Time/CCT Total # of Minutes Spent Total Time Spent with Patient: Total time spent is greater than 50% in coordination of care (as documented) at patient's floor/unit and/or counseling patient: Coding Level of Care Code 94330 SUB INP/OBS CARE 2/35MIN Diagnoses Hypoglycemia due to type 2 diabetes mellitus E11.649 Stage 5 chronic kidney disease due to type 2 diabetes mellitus E11.22; N18.5 End stage renal disease N18.6 Chronic venous insufficiency of lower extremity I87.2 Acute kidney injury superimposed on stage 5 chronic kidney disease, not on chronic dialysis N17.9; N18.5 Cognitive disorder F09 Anemia D64.9 Anxiety F41.9 Benign prostatic hyperplasia with urinary obstruction N40.1; N13.8 Learning disability F81.9 Hypertension I10 Leukocytosis D72.829 Time Spent (min) 35
[2023-10-23] MEDS: HEPARIN SOD (PORCINE) 1000 UNIT/ML IV ONE (20:20)
[2023-10-24] MEDS ORDERED: SODIUM CHLORIDE 0.9% 1,000 ML IV PRN (07:00)
[2023-10-24 07:55] LABS: Hematocrit (blood only) 30.4 % (42.0-52.0); Hemoglobin 10.2 g/dl (14.0-18.0); Mean Corpuscular Hemoglobin 29.9 pg (25.0-34.0); Mean Corpuscular Hgb Conc 33.6 g/dL (32.0-36.0); Mean Corpuscular Volume 89.1 fL (80.0-100.0); Mean Platelet Volume 9.1 fL (9.4-12.4); Platelet Count 188 K/uL (130-400); RDW Coefficient of Variation 12.3 % (11.5-14.5); RDW Standard Deviation 40.1 fL (36.4-46.3); Red Blood Count 3.41 M/uL (4.70-6.10); White Blood Count 11.23 K/ul (4.8-10.8)
[2023-10-24 08:20] LABS: Calcium 8.8 mg/dl (8.6-10.3); Creatinine Clr Calc Pharmacy 19.4 ml/min; Est GFR (African American) 15.4 ml/min; Est GFR (Non-African American) 13.3 ml/min
--- NOTE | 2023-10-24 08:51 | Nephrology Progress Note ---
Date of Service October 24, 2023 Assessment & Plan (1) End-stage renal disease needing dialysis: Plan: * ESKD. 1st HD provided 10/23/23 * RUE AVF created 04/12. Transposed 08/10. * Orders for 2nd HD treatment placed in EMR and HD RN notified * Case management has been consulted to set up outpatient HD at [facility] (Dr. Alejandro), arrange transportation and discuss assisted living options w/ patient (2) Hypertension: Plan: * Losartan stopped due to progressive renal dysfunction. * Hold furosemide * Continue amlodipine * Expect BP to improve with UF during HD (3) Vomiting: Plan: * Hold Velphoro. Management of constipation per hospitalist. (4) Secondary hyperparathyroidism of renal origin: Plan: * Serum calcium acceptable. Remains on calcitriol 0.25 mg daily. (5) Anemia: Plan: * Hgb 10.7, iron sat 41%, ferritin 561. Will monitor Admission and Anticipated Discharge Date Admission Date: October 17, 2023 Subjective Mr. Miles was evaluated in his hospital room this morning. He tolerated his 1st HD treatment yesterday without complication. His AVF functioned well. He voices no new medical concerns. Review of Systems Constitutional: no fever Eyes: no problem reported Ear, Nose, Mouth, Throat: no problem reported Respiratory: no cough and no dyspnea Cardiovascular: no chest pain Gastrointestinal: no abdominal pain, no nausea, no vomiting and no diarrhea/loose stools Integumentary: no rash Physical Exam Constitutional: not in distress Eyes: PERRL, conjunctivae normal, anicteric sclerae ENMT: external ear and nose normal, oropharynx normal Neck: trachea midline, no thyromegaly Respiratory: normal respiratory effort, lungs clear to auscultation Cardiovascular: Rate/Rhythm: regular rate and regular rhythm Extremities: + edema (Trace pretibial) and + AV fistula (Positive bruit) Gastrointestinal (Abdomen): normal bowel sounds, soft, nontender, no hepatosplenomegaly Skin: no rashes, warm and dry Neurologic: Speech / Cognition: normal speech Results & Data Vital Signs (Past 12 Hours) Vital Signs Temp Pulse Pulse Resp BP Pulse Ox O2 Del Method 10/24/23 07:13 36.4 C L 83 15 159/74 H 98 Room Air 10/24/23 06:48 81 10/24/23 03:52 37.0 C 86 18 155/74 H 99 Room Air 10/23/23 23:45 36.9 C 89 18 147/76 H 98 Room Air 10/23/23 21:46 87 Laboratory Results Laboratory Results - last 24 hr 10/23/23 10/23/23 10/23/23 10:04 17:14 19:51 WBC RBC Hgb Hct MCV MCH MCHC RDW Std Deviation RDW Coeff of Vinay Plt Count MPV Sodium Potassium Chloride Carbon Dioxide Anion Gap BUN Creatinine Est Cr Clr Drug Dosing Est GFR ( Amer) Est GFR (Non-Af Amer) BUN/Creatinine Ratio Glucose POC Glucose 125 H 199 H Calcium Hep Bs Antigen Negative Hep Bs Antibody Non-Immune Hep Bs Antibody, Quant < 3.00 Hep B Core IgM Ab Pending 10/24/23 10/24/23 07:11 07:59 WBC 11.23 H RBC 3.41 L Hgb 10.2 L Hct 30.4 L MCV 89.1 MCH 29.9 MCHC 33.6 RDW Std Deviation 40.1 RDW Coeff of Vinay 12.3 Plt Count 188 MPV 9.1 L Sodium 136 Potassium 4.0 Chloride 101 Carbon Dioxide 25 Anion Gap 10 BUN 66 H D Creatinine 4.40 H D Est Cr Clr Drug Dosing 19.4 Est GFR ( Amer) 15.4 Est GFR (Non-Af Amer) 13.3 BUN/Creatinine Ratio 15.0 Glucose 133 H POC Glucose 145 H Calcium 8.8 Hep Bs Antigen Hep Bs Antibody Hep Bs Antibody, Quant Hep B Core IgM Ab PG Care Time/CCT Total # of Minutes Spent Total Time Spent with Patient: Total time spent is greater than 50% in coordination of care (as documented) at patient's floor/unit and/or counseling patient: Coding Level of Care Code 74316 SUB INP/OBS CARE 3/50MIN Diagnoses End-stage renal disease needing dialysis N18.6; Z99.2 Hypertension I10 Vomiting R11.10 Secondary hyperparathyroidism of renal origin N25.81 Anemia D64.9
[2023-10-24] MEDS ORDERED: POLYETHYLENE (MIRALAX) 17 GM PACK PO PRN (16:45)
--- NOTE | 2023-10-24 16:54 | Hospitalist Progress Note ---
Date of Service October 24, 2023 Assessment & Plan (1) Hypoglycemia due to type 2 diabetes mellitus: (2) Stage 5 chronic kidney disease due to type 2 diabetes mellitus: (3) End stage renal disease: (4) Chronic venous insufficiency of lower extremity: (5) Acute kidney injury superimposed on stage 5 chronic kidney disease, not on chronic dialysis: (6) Cognitive disorder: (7) Anemia: (8) Anxiety: (9) Benign prostatic hyperplasia with urinary obstruction: (10) Learning disability: (11) Hypertension: (12) Leukocytosis: Plan A 62 yo male PMHx intellectual disability, CKD-V not yet on RN PRIOR AUTHORIZATION s/p fistula placement, T2DM on insulin, venous insufficiency, BPH, anxiety, ISAAK not on CPAP, secondary hyperparathyroidism, admitted after an episode of hypoglycemia as well as nausea and vomiting. 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 consulting awaiting appropriate disposition and outpatient dialysis appointment #T2DM continue basal bolus insulin with 10 units of glargine plus Premeal aspart, at goal 10/23 does have CGM at home, presented with severe hypoglycemia #Leukocytosis Unclear source possibly was related to vomiting, Now within normal limits, remains afebrile and asymptomatic CXR, procal, UA negative KUB, COVID, Flu, RSV negative Given CTX x1 in ED Will hold off on antibiotics, was probably stress related white blood count remains mildly elevated at 11K without signs and symptoms of bacterial infection #Intellectual disability Pt having increasing difficulty caring for himself Has caregivers in during the day but alone overnight POAs are sisters and they are interested in terminal operations manager placement for him at this time Plan is for placement #Anxiety buspar #BPH flomax #HTN amlodipiine losartan FENGI: DM2, renal Code status: full code DVT prophylaxis: heparin SQ Isolation: none Disposition: Plan is for placement, He will need to establish outpatient dialysis chair prior to discharge. Please call sisters with updates: Ban ; Renay Admission and Anticipated Discharge Date Admission Date: October 17, 2023 Subjective sitting in the chair by the window has finished lunch feels well currently tolerating dialysis without problems no nausea and vomiting says he does have a CGM at home however does not always work great for him and his vision is poor so it is hard to see the readings on his iPhone ruben Physical Exam 2 Physical Exam: PHYSICAL EXAMINATION Last 24h vital signs reviewed, see documentation in flowsheet General: comfortable appearing, no distress, sitting in chair by the window HEENT: Normocephalic, atraumatic, pupils round and equal, sclerae anicteric, no conjunctival injection, moist mucus membranes Lungs: Normal respiratory effort. Clear to auscultation bilaterally. No RRW Heart: Regular rate and rhythm, no murmurs. No JVD Abdomen: Soft, nontender, nondistended. Bowel sounds present. Extremities: Warm, dry, well-perfused. mild bilateral lower extremity edema. right upper extremity AVF plus thrill Neuro: Alert and oriented x 4, face symmetric, moves 4 extremities well Psych: Normal affect and behavior Results & Data Results & Data Vital Signs (Past 12 Hours) Vital Signs Temp Pulse Pulse Resp BP Pulse Ox O2 Del Method 10/24/23 14:52 36.7 C 88 15 132/73 100 Room Air 10/24/23 14:34 83 10/24/23 10:54 36.8 C 76 16 106/60 97 Room Air 10/24/23 07:13 36.4 C L 83 15 159/74 H 98 Room Air 10/24/23 06:48 81 Laboratory Results 10/24/23 07:11 10/24/23 07:11 PG Care Time/CCT Total # of Minutes Spent Total Time Spent with Patient: Total time spent is greater than 50% in coordination of care (as documented) at patient's floor/unit and/or counseling patient: Coding Level of Care Code 44193 SUB INP/OBS CARE 1/25MIN Diagnoses Hypoglycemia due to type 2 diabetes mellitus E11.649 Stage 5 chronic kidney disease due to type 2 diabetes mellitus E11.22; N18.5 End stage renal disease N18.6 Chronic venous insufficiency of lower extremity I87.2 Acute kidney injury superimposed on stage 5 chronic kidney disease, not on chronic dialysis N17.9; N18.5 Cognitive disorder F09 Anemia D64.9 Anxiety F41.9 Benign prostatic hyperplasia with urinary obstruction N40.1; N13.8 Learning disability F81.9 Hypertension I10 Leukocytosis D72.829
[2023-10-24] MEDS: FERROUS SULFATE 325 MG TAB PO SCH (17:22)
[2023-10-24] MEDS: HEPARIN SOD (PORCINE) 1000 UNIT/ML IV ONE (17:57)
[2023-10-24] MEDS: ACETAMINOPHEN 325 MG TAB PO PRN (19:24)
--- NOTE | 2023-10-25 09:01 | Nephrology Progress Note ---
Date of Service October 25, 2023 Assessment & Plan (1) End-stage renal disease needing dialysis: Plan: * ESKD. 1st HD provided 10/23/23 * RUE AVF created 04/12. Transposed 08/10. * Scheduled for 2nd HD treatment today * Will plan on 3rd HD in am * Case management has been consulted to set up outpatient HD at [facility] (Dr. Alejandro), arrange transportation and discuss assisted living options w/ patient (2) Hypertension: Plan: * Losartan stopped due to progressive renal dysfunction. * Hold furosemide * Continue amlodipine * BP has improved with UF during HD (3) Vomiting: Plan: * Hold Velphoro. Management of constipation per hospitalist. (4) Secondary hyperparathyroidism of renal origin: Plan: * Serum calcium acceptable. Remains on calcitriol 0.25 mg daily. (5) Anemia: Plan: * Hgb 10.7, iron sat 41%, ferritin 561. Will monitor Admission and Anticipated Discharge Date Admission Date: October 17, 2023 Subjective Mr. Miles was evaluated in his hospital room this morning. HD was terminated due to AVF infiltrate yesterday. Site was iced and swelling quickly resolved. Mr. Miles is willing to have his 2nd HD treatment today Review of Systems Constitutional: no fever Eyes: no problem reported Ear, Nose, Mouth, Throat: no problem reported Respiratory: no cough and no dyspnea Cardiovascular: no chest pain Gastrointestinal: no abdominal pain, no nausea, no vomiting and no diarrhea/loose stools Integumentary: no rash Physical Exam Constitutional: not in distress Eyes: PERRL, conjunctivae normal, anicteric sclerae ENMT: external ear and nose normal, oropharynx normal Neck: trachea midline, no thyromegaly Respiratory: normal respiratory effort, lungs clear to auscultation Cardiovascular: Rate/Rhythm: regular rate and regular rhythm Extremities: + edema (Trace pretibial) and + AV fistula (Positive bruit) Gastrointestinal (Abdomen): normal bowel sounds, soft, nontender, no hepatosplenomegaly Skin: no rashes, warm and dry Neurologic: Speech / Cognition: normal speech Results & Data Vital Signs (Past 12 Hours) Vital Signs Temp Pulse Resp BP Pulse Ox O2 Del Method 10/25/23 06:57 36.6 C 89 18 151/75 H 100 Room Air 10/24/23 23:30 36.5 C 93 H 18 177/77 H 100 Room Air 10/24/23 23:08 36.4 C L 82 18 157/83 H 100 Room Air Laboratory Results Laboratory Results - last 24 hr 10/24/23 10/24/23 10/24/23 12:00 16:54 20:10 POC Glucose 181 H 127 H 204 H 10/25/23 07:46 POC Glucose 196 H PG Care Time/CCT Total # of Minutes Spent Total Time Spent with Patient: Total time spent is greater than 50% in coordination of care (as documented) at patient's floor/unit and/or counseling patient: Coding Level of Care Code 42072 SUB INP/OBS CARE 3/50MIN Diagnoses End-stage renal disease needing dialysis N18.6; Z99.2 Hypertension I10 Vomiting R11.10 Secondary hyperparathyroidism of renal origin N25.81 Anemia D64.9
[2023-10-25 15:37] LABS: Hematocrit (blood only) 30.6 % (42.0-52.0); Hemoglobin 10.3 g/dl (14.0-18.0); Mean Corpuscular Hemoglobin 29.9 pg (25.0-34.0); Mean Corpuscular Hgb Conc 33.7 g/dL (32.0-36.0); Mean Platelet Volume 9.2 fL (9.4-12.4); Platelet Count 184 K/uL (130-400); RDW Coefficient of Variation 12.3 % (11.5-14.5); RDW Standard Deviation 39.5 fL (36.4-46.3); Red Blood Count 3.44 M/uL (4.70-6.10); White Blood Count 10.21 K/ul (4.8-10.8)
[2023-10-25 16:05] LABS: BUN Creatinine Ratio 11.8 (10-20); Creatinine Clr Calc Pharmacy 23.9 ml/min; Est GFR (African American) 19.9 ml/min; Est GFR (Non-African American) 17.2 ml/min; Potassium 3.8 mmol/L (3.5-5.1)
--- NOTE | 2023-10-25 17:43 | Hospitalist Progress Note ---
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 initiated hemodialysis this admission #ESRD fistula in place, hemodialysis initiated this admission first runs 10/22, 10/23, 10/24 - tolerating well. 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 consulting awaiting appropriate disposition and outpatient dialysis appointment #T2DM continue basal bolus insulin increase to 12 units of glargine plus Premeal aspart does have CGM at home, presented with severe hypoglycemia #Leukocytosis Unclear source possibly was related to vomiting, Now within normal limits, remains afebrile and asymptomatic CXR, procal, UA negative KUB, COVID, Flu, RSV negative Given CTX x1 in ED Will hold off on antibiotics, was probably stress related white blood count now 10K without signs and symptoms of bacterial infection #Intellectual disability Pt having increasing difficulty caring for himself Has caregivers in during the day but alone overnight POAs are sisters and they are interested in ocean transportation intermediary placement for him at this time Plan is for placement #Anxiety buspar #BPH flomax #HTN amlodipiine losartan FENGI: DM2, renal Code status: full code DVT prophylaxis: heparin SQ Isolation: none Disposition: Plan is for placement, He will need to establish outpatient dialysis chair prior to discharge. Please call sisters with updates: Ban ; Renay Admission and Anticipated Discharge Date Admission Date: October 17, 2023 Subjective R arm sore at AVF after dialysis but no swelling or bleeding No dyspnea Physical Exam 2 Physical Exam: PHYSICAL EXAMINATION Last 24h vital signs reviewed, see documentation in flowsheet General: comfortable appearing, no distress, lying in bed HEENT: Normocephalic, atraumatic, pupils round and equal, sclerae anicteric, no conjunctival injection, moist mucus membranes Lungs: Normal respiratory effort. Clear to auscultation bilaterally. No RRW Heart: Regular rate and rhythm, no murmurs. No JVD Abdomen: Soft, nontender, nondistended. Bowel sounds present. Extremities: Warm, dry, well-perfused. mild bilateral lower extremity edema. right upper extremity AVF - good thrill, no swelling or ecchymosis Neuro: Alert and oriented x 4, face symmetric, moves 4 extremities well Psych: Normal affect and behavior Results & Data Results & Data Vital Signs (Past 12 Hours) Vital Signs Temp Pulse Pulse Pulse Pulse Resp BP 10/25/23 15:15 36.9 C 93 H 17 10/25/23 12:45 87 10/25/23 12:34 36.8 C 87 138/70 10/25/23 12:30 87 120/62 10/25/23 12:00 86 115/65 10/25/23 11:30 87 138/72 10/25/23 11:00 86 124/72 10/25/23 10:30 87 127/67 10/25/23 10:00 93 H 148/74 H 10/25/23 09:30 98 H 168/80 H 10/25/23 09:15 36.8 C 98 H 97 H 10/25/23 08:57 94 H 94 H 10/25/23 06:57 36.6 C 89 18 BP Pulse Ox O2 Del Method 10/25/23 15:15 117/61 97 Room Air 10/25/23 12:45 138/70 10/25/23 12:34 10/25/23 12:30 10/25/23 12:00 10/25/23 11:30 10/25/23 11:00 10/25/23 10:30 10/25/23 10:00 10/25/23 09:30 10/25/23 09:15 10/25/23 08:57 10/25/23 06:57 151/75 H 100 Room Air Laboratory Results 10/25/23 15:07 10/25/23 15:07 PG Care Time/CCT Total # of Minutes Spent Total Time Spent with Patient: Total time spent is greater than 50% in coordination of care (as documented) at patient's floor/unit and/or counseling patient: Coding Level of Care Code 15440 SUB INP/OBS CARE 2MIN Diagnoses Hypoglycemia due to type 2 diabetes mellitus E11.649 Stage 5 chronic kidney disease due to type 2 diabetes mellitus E11.22; N18.5 End stage renal disease N18.6 Chronic venous insufficiency of lower extremity I87.2 Acute kidney injury superimposed on stage 5 chronic kidney disease, not on chronic dialysis N17.9; N18.5 Cognitive disorder F09 Anemia D64.9 Anxiety F41.9 Benign prostatic hyperplasia with urinary obstruction N40.1; N13.8 Learning disability F81.9 Hypertension I10 Leukocytosis D72.829
[2023-10-26] MEDS ORDERED: SODIUM CHLORIDE 0.9% 1,000 ML IV PRN (07:00)
--- NOTE | 2023-10-26 10:31 | Nephrology Progress Note ---
Date of Service October 26, 2023 Assessment & Plan (1) End-stage renal disease needing dialysis: Plan: * ESKD. HD provided 10/23/23, 10/25/23. * RUE AVF created 04/12. Transposed 08/10. * Scheduled for 3rd HD treatment today and will then change to 3x/week HD schedule * Case management has been consulted to set up outpatient HD at [facility] (Dr. Alejandro), arrange transportation and discuss assisted living options w/ patient (2) Hypertension: Plan: * Losartan stopped due to progressive renal dysfunction. * Hold furosemide * Continue amlodipine * BP has improved with UF during HD (3) Vomiting: Plan: * Hold Velphoro. Management of constipation per hospitalist. (4) Secondary hyperparathyroidism of renal origin: Plan: * Serum calcium acceptable. Remains on calcitriol 0.25 mg daily. (5) Anemia: Plan: * Hgb 10.7, iron sat 41%, ferritin 561. Will monitor Admission and Anticipated Discharge Date Admission Date: October 17, 2023 Subjective Mr. Miles was evaluated in his hospital room this morning. He is tolerating HD well. He voices no new medical concerns Review of Systems Constitutional: no fever Eyes: no problem reported Ear, Nose, Mouth, Throat: no problem reported Respiratory: no cough and no dyspnea Cardiovascular: no chest pain Gastrointestinal: no abdominal pain, no nausea, no vomiting and no diarrhea/loose stools Integumentary: no rash Physical Exam Constitutional: not in distress Eyes: PERRL, conjunctivae normal, anicteric sclerae ENMT: external ear and nose normal, oropharynx normal Neck: trachea midline, no thyromegaly Respiratory: normal respiratory effort, lungs clear to auscultation Cardiovascular: Rate/Rhythm: regular rate and regular rhythm Extremities: + edema (Trace pretibial) and + AV fistula (Positive bruit) Gastrointestinal (Abdomen): normal bowel sounds, soft, nontender, no hepatosplenomegaly Skin: no rashes, warm and dry Neurologic: Speech / Cognition: normal speech Results & Data Vital Signs (Past 12 Hours) Vital Signs Temp Pulse Resp BP Pulse Ox O2 Del Method 10/26/23 08:05 37 C 105 H 16 135/70 93 Room Air 10/26/23 08:00 Room Air Laboratory Results Laboratory Results - last 24 hr 10/23/23 10/25/23 10/25/23 10:04 12:59 15:07 WBC 10.21 RBC 3.44 L Hgb 10.3 L Hct 30.6 L MCV 89.0 MCH 29.9 MCHC 33.7 RDW Std Deviation 39.5 RDW Coeff of Vinay 12.3 Plt Count 184 MPV 9.2 L Sodium 136 Potassium 3.8 Chloride 101 Carbon Dioxide 25 Anion Gap 10 BUN 42 H D Creatinine 3.56 H D Est Cr Clr Drug Dosing 23.9 Est GFR ( Amer) 19.9 Est GFR (Non-Af Amer) 17.2 BUN/Creatinine Ratio 11.8 Glucose 210 H POC Glucose 179 H Calcium 9.0 Hep B Core IgM Ab NON-REACTIVE 10/25/23 10/25/23 10/26/23 16:35 20:41 07:33 WBC RBC Hgb Hct MCV MCH MCHC RDW Std Deviation RDW Coeff of Vinay Plt Count MPV Sodium Potassium Chloride Carbon Dioxide Anion Gap BUN Creatinine Est Cr Clr Drug Dosing Est GFR ( Amer) Est GFR (Non-Af Amer) BUN/Creatinine Ratio Glucose POC Glucose 189 H 209 H 168 H Calcium Hep B Core IgM Ab PG Care Time/CCT Total # of Minutes Spent Total Time Spent with Patient: Total time spent is greater than 50% in coordination of care (as documented) at patient's floor/unit and/or counseling patient: Coding Level of Care Code 48102 SUB INP/OBS CARE 3/50MIN Diagnoses End-stage renal disease needing dialysis N18.6; Z99.2 Hypertension I10 Vomiting R11.10 Secondary hyperparathyroidism of renal origin N25.81 Anemia D64.9
--- NOTE | 2023-10-26 13:28 | Hospitalist Progress Note ---
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 initiated hemodialysis this admission #Presented with KIRK on CKD-5 not on dialysis. 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 Progressed to ESRD and initiated hemodialysis this admission hemodialysis initiated this admission first runs 10/22, 10/23, 10/24 - tolerating well. BUN/Cr reduced to 42/3.56 anticipate short run of HD today then tiw HD continue calcitriol fruit vendor consulting access: SUKHDEV ABDI, outpatient fruit vendor: Dr. Alejandro awaiting appropriate disposition and outpatient dialysis appointment #T2DM continue basal bolus insulin - cont 12 units of glargine plus Premeal aspart - adjusted CF:CR does have CGM at home, presented with severe hypoglycemia #Leukocytosis Unclear source possibly was reactive related to vomiting, remains afebrile and asymptomatic, resolved. Admission/ED testing negative. See last prog note 10/24 for details. #Intellectual disability Pt having increasing difficulty caring for himself Has caregivers in during the day but alone overnight POAs are sisters and they are interested in buttermaker placement for him at this time Plan is for placement - discussed with care coordination, office of aging is requiring a psychiatric consult so that they can complete level 2 PASSRR. Has history of anxiety and is on buspar. Will request/arrange #Anxiety buspar #BPH flomax #HTN amlodipiine losartan anemia of CKD - stable, management per fruit vendor -on oral iron QOD Code status: full code DVT prophylaxis: heparin SQ Disposition: Plan is for placement, He will need to establish outpatient dialysis chair prior to discharge. Please call sisters with updates: Ban ; Renay Admission and Anticipated Discharge Date Admission Date: October 17, 2023 Subjective no events. planning 2h dialysis this afternoon no shortness of breath, CP or nausea. no edema. eating well. Physical Exam 2 Physical Exam: PHYSICAL EXAMINATION Last 24h vital signs reviewed, see documentation in flowsheet General: sitting up on EOB HEENT: Normocephalic, atraumatic, pupils round and equal, sclerae anicteric, no conjunctival injection, moist mucus membranes Lungs: Normal respiratory effort. Clear to auscultation bilaterally. No RRW Heart: Regular rate and rhythm, no murmurs. No JVD Abdomen: Soft, nondistended. Bowel sounds present. Extremities: Warm, dry, well-perfused. mild bilateral lower extremity edema. RUE AVF +thrill Neuro: Alert and oriented x 4, face symmetric, moves 4 extremities well Psych: Normal affect and behavior Results & Data Results & Data Vital Signs (Past 12 Hours) Vital Signs Temp Pulse Resp BP Pulse Ox O2 Del Method 10/26/23 08:05 37 C 105 H 16 135/70 93 Room Air 10/26/23 08:00 Room Air Laboratory Results 10/25/23 15:07 10/25/23 15:07 PG Care Time/CCT Total # of Minutes Spent Total Time Spent with Patient: Total time spent is greater than 50% in coordination of care (as documented) at patient's floor/unit and/or counseling patient: Coding Level of Care Code 29623 SUB INP/OBS CARE 2/35MIN Diagnoses Hypoglycemia due to type 2 diabetes mellitus E11.649 Acute kidney injury superimposed on stage 5 chronic kidney disease, not on chronic dialysis N17.9; N18.5 End stage renal disease N18.6 Cognitive disorder F09 Anxiety F41.9
[2023-10-26] MEDS: EPOETIN ALFA 4,000 UNIT/ML VIAL IV ONE (15:35)
--- NOTE | 2023-10-26 16:01 | Psychiatric Consultation ---
Date of Consultation October 26, 2023 Impression / Recommendations Impression The patient is psychiatrically stable for transfer to a intermediate facility.He is in support of this plan and trusts his sisters to help with this decision. There is no acute indication for inpatient psychiatric hospitalization as the patient is not suicidal or homicidal; there is no evidence of psychosis nor psychiatric symptoms interfering with their ability to care for their basic needs. Psychiatric follow-up care for this patient should include ongoing management of their medications. (1) Evaluation by psychiatric service required: (2) Cognitive disorder: (3) Anxiety: (4) End-stage renal disease needing dialysis: Psych History Identifying Data 62 yo man with a history of intellectual disability, anxiety, T2DM, ESRD now on dialysis admitted medically. psychiatry consulted for PASR process. Chief Complaint "I'm ok". History of Present Illness Bin reports stable mood, has been watching some Olympics and is pleased he's been working on rebuilding his strength in the hospital. His sisters are great supports and he trusts them to help identify a place where he'll have "around the clock care". Currently he only has help 66 hours of the day and is more isolated since he can't drive. He likes the idea of increased options for doing things in a intermediate facility. Allergies Allergy/AdvReac Type Severity Reaction Status Date / Time lisinopril Allergy Intermediate scratchy Verified 10/17/23 21:00 throat Home Medications Medication Instructions Recorded Confirmed Type blood-glucose meter (Blood Glucose #1 ea 03/31/19 10/02/23 Rx Monitoring kit) aspirin 81 mg tablet,delayed 81 mg PO QAM 05/24/19 10/17/23 History release acetaminophen 500 mg tablet 500 mg PO Q6H PRN Pain 02/11/20 10/17/23 History (Tylenol Extra Strength) glucose 4 gram chewable tablet 4 g PO Q15M PRN hypoglycemia #30 09/04/20 10/17/23 Rx (Dex4 Glucose) tabs blood sugar diagnostic (OneTouch 12/28/20 10/02/23 History Ultra Blue Test Strip) lancets 28 gauge (OneTouch #100 ea 12/28/20 10/02/23 Rx SureSoft Lancing Devices) albuterol sulfate 90 mcg/actuation 2 inh inhalation Q6H PRN Shortness 01/31/22 10/17/23 History aerosol inhaler Of Breath Or Wheezing clotrimazole 1 % topical cream 1 applic topical BID #90 grams 05/20/22 10/17/23 Rx cane #1 ea 10/13/22 10/02/23 Rx simvastatin 20 mg tablet 20 mg PO QPM #90 tabs 11/04/22 10/17/23 Rx Shower Chair #1 ea 11/25/22 10/02/23 Rx Handicap Walk In Shower #1 ea 12/15/22 10/02/23 Rx furosemide 40 mg tablet 40 mg PO BID #180 tabs 12/15/22 10/17/23 Rx compress.stocking,knee,reg,med #2 ea 12/29/22 10/02/23 Rx amlodipine 5 mg tablet 5 mg PO QAM #90 tabs 02/21/23 10/17/23 Rx triamcinolone acetonide 0.5 % 1 applic topical BID PRN skin 03/15/23 10/17/23 Rx topical cream irritation #60 grams ferrous sulfate 325 mg (65 mg 325 mg PO BID #180 tabs 03/22/23 10/17/23 Rx iron) tablet losartan 100 mg tablet 100 mg PO QPM #90 tabs 03/22/23 10/17/23 Rx tamsulosin 0.4 mg capsule 0.4 mg PO QAM #90 caps 03/24/23 10/17/23 Rx peg 400-propylene glycol (PF) 0.4 1 drp ophthalmic (eye) TID PRN Dry 04/11/23 10/17/23 History %-0.3 % eye drops in a dropperette Eyes (Systane (PF)) buspirone 15 mg tablet 15 mg PO BID #180 tabs 05/16/23 10/17/23 Rx docusate sodium 100 mg capsule 100 mg PO BID #180 caps 05/16/23 10/17/23 Rx (Colace) calcitriol 0.25 mcg capsule 0.25 mcg PO QAM #90 caps 06/13/23 10/17/23 Rx pen needle, diabetic 32 gauge x #400 ea 06/15/23 10/02/23 Rx 5/32" (BD Ultra-Fine Daria Pen Needle) blood-glucose meter,continuous #1 ea 06/19/23 10/02/23 Rx (FreeStyle Kaylah 3 Crimora) empagliflozin 10 mg tablet 10 mg PO QAM 07/26/23 10/17/23 History (Jardiance) insulin lispro 100 unit/mL 15 unit subcut TIDM 07/26/23 10/17/23 History subcutaneous pen (Humalog KwikPen (U-100) Insulin) gabapentin 300 mg capsule 300 mg PO QPM #90 caps 09/07/23 10/17/23 Rx epoetin rosey 40,000 unit/mL 0 unit subcut MONTHLY 09/27/23 10/17/23 History injection solution (Procrit) sucroferric oxyhydroxide 500 mg 500 mg PO TIDWMEAL #90 tabs 10/11/23 10/17/23 Rx chewable tablet (Velphoro) insulin glargine 100 unit/mL (3 20 unit (0.2 mL) subcut HS #45 mL 10/13/23 10/17/23 Rx mL) subcutaneous pen (Lantus Solostar U-100 Insulin) Patient History Medical History Diabetic retinopathy History of OCD (obsessive compulsive disorder) Obesity (BMI 30.0-34.9) End stage renal disease Hypertension Adult attention deficit disorder Anxiety Seasonal allergies Mild sleep apnea Stage 4 chronic kidney disease Dyslipidemia Diabetes mellitus Hx of Clostridium difficile infection states no issues in years Dysphagia takes pills w/ applesauce Poor historian History of COVID-19 02/2021- flu like symptoms>resolved Herniated disc pt and POA unsure Glaucoma Surgical History Hx of vascular surgery 03/2023, right AC basilic vein fistula creation History of colonoscopy History of left cataract extraction History of right cataract extraction History of testicular surgery Hydrocele repair. History of hernia repair History of laparoscopic cholecystectomy Family History Mother Alzheimer disease Sister Hypertension Father Prostate cancer Other No family history of adverse response to anesthesia Denies family history of Ovarian cancer Myocardial infarction Breast cancer Colorectal cancer Social History Smoking Status: Never smoker Second Hand Exposure: No; Do You Dip or Chew Tobacco: No; Hx Alcohol Use: No Hx Substance Use: No Preferred Language: Burmese Communication Ability: Effective Communication Ability Comment: vision impaired, still signs own consents Visual Impairment: Limited Hearing Ability: Normal 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 Beliefs That Will Affect Care: None marital status: Single Current Living Situation: Alone Current Living Situation Comment: has care givers but only in am current occupational status: disabled Feels Safe at Home: No Is there a partner from a previous relationship who is making you feel unsafe now?: No Childhood Exposure to Second-Hand Smoke: No Diet: regular Diet Comment: regular caffeine: No (hot tea once in a while) during the past year weight has: remained stable Dental Care, Regularly: Yes Physical Activity Frequency: 1-2 Times per Week Seatbelt Use: always Sunscreen Use: No Assistive Devices: Cane Physical Exam Psychiatric: Orientation: alert and oriented x 3 Apperance: appropriately dressed and appropriately groomed Eye Contact: good eye contact Motor Behavior: no abnormal motor movements Speech: normal rate/rhythm/volume of speech Affect: euthymic affect Mood: no depressed mood and no anxious mood Thought Process: linear/logical thought process Thought Content: reality based without delusions Suicidal Thoughts: denies suicidal thoughts Homicidal Thoughts: denies homicidal thoughts Hallucinations: no auditory hallucinations and no visual hallucinations Cognition: recent memory grossly intact, remote memory grossly intact, attention grossly intact and language valerio sly intact Insight: + fair insight Judgment: + fair judgement Vital Signs (Past 24 Hours): Last Vital Signs Temp 36.8 C 10/26/23 13:10 Pulse 83 10/26/23 15:00 Resp 16 10/26/23 08:05 BP 127/78 10/26/23 15:00 Pulse Ox 93 10/26/23 08:05 O2 Del Method Room Air 10/26/23 08:05 Results & Data (PSY) Medications Administered Acetaminophen (Acetaminophen 325 Mg Tab) 650 mg PO Q4H PRN PRN Reason: Pain or Fever Stop: 11/17/23 02:43 Last Admin: 10/26/23 08:47 Dose: 650 mg Documented By: Admin: 10/25/23 22:16 Dose: 650 mg Documented By: Admin: 10/24/23 19:24 Dose: 650 mg Documented By: TRELL Amlodipine Besylate (Amlodipine Besylate 5 Mg Tab) 5 mg PO QAM [facility] Stop: 11/17/23 08:59 Last Admin: 10/25/23 07:55 Dose: 5 mg Documented By: АЛЕКСАНДР Admin: 10/24/23 07:46 Dose: 5 mg Documented By: Admin: 10/23/23 08:02 Dose: 5 mg Documented By: Admin: 10/22/23 08:20 Dose: 5 mg Documented By: Admin: 10/21/23 08:50 Dose: 5 mg Documented By: Admin: 10/20/23 07:46 Dose: 5 mg Documented By: Admin: 10/19/23 07:52 Dose: 5 mg Documented By: Admin: 10/18/23 08:35 Dose: 5 mg Documented By: CHEVY Aspirin (Aspirin 81 Mg Ectab) 81 mg PO QAM [facility] Stop: 11/17/23 08:59 Last Admin: 10/26/23 08:46 Dose: 81 mg Documented By: Admin: 10/25/23 07:55 Dose: 81 mg Documented By: АЛЕКСАНДР Admin: 10/24/23 07:45 Dose: 81 mg Documented By: Admin: 10/23/23 08:02 Dose: 81 mg Documented By: Admin: 10/22/23 08:20 Dose: 81 mg Documented By: Admin: 10/21/23 08:50 Dose: 81 mg Documented By: Admin: 10/20/23 07:46 Dose: 81 mg Documented By: Admin: 10/19/23 07:52 Dose: 81 mg Documented By: Admin: 10/18/23 08:35 Dose: 81 mg Documented By: CHEVY Buspirone HCl (Buspirone 15 Mg Tab) 15 mg PO BID [facility] Stop: 11/17/23 02:43 Last Admin: 10/26/23 08:46 Dose: 15 mg Documented By: Admin: 10/25/23 20:27 Dose: 15 mg Documented By: Admin: 10/25/23 07:55 Dose: 15 mg Documented By: АЛЕКСАНДР Admin: 10/24/23 20:48 Dose: 15 mg Documented By: Admin: 10/24/23 07:45 Dose: 15 mg Documented By: Admin: 10/23/23 20:22 Dose: 15 mg Documented By: Admin: 10/23/23 08:00 Dose: 15 mg Documented By: Admin: 10/22/23 21:11 Dose: 15 mg Documented By: Admin: 10/22/23 08:19 Dose: 15 mg Documented By: Admin: 10/21/23 20:37 Dose: 15 mg Documented By: Admin: 10/21/23 08:50 Dose: 15 mg Documented By: Admin: 10/20/23 20:24 Dose: 15 mg Documented By: Admin: 10/20/23 07:46 Dose: 15 mg Documented By: Admin: 10/19/23 20:47 Dose: 15 mg Documented By: Admin: 10/19/23 07:52 Dose: 15 mg Documented By: Admin: 10/18/23 20:19 Dose: 15 mg Documented By: Admin: 10/18/23 08:35 Dose: 15 mg Documented By: Admin: 10/18/23 03:34 Dose: 15 mg Documented By: SABINE Calcitriol (Calcitriol 0.25 Mcg Capsule) 0.25 mcg PO QAM [facility] Stop: 11/17/23 08:59 Last Admin: 10/26/23 08:46 Dose: 0.25 mcg Documented By: Admin: 10/25/23 07:55 Dose: 0.25 mcg Documented By: АЛЕКСАНДР Admin: 10/24/23 07:45 Dose: 0.25 mcg Documented By: Admin: 10/23/23 08:02 Dose: 0.25 mcg Documented By: Admin: 10/22/23 08:20 Dose: 0.25 mcg Documented By: Admin: 10/21/23 08:50 Dose: 0.25 mcg Documented By: Admin: 10/20/23 07:46 Dose: 0.25 mcg Documented By: Admin: 10/19/23 07:52 Dose: 0.25 mcg Documented By: Admin: 10/18/23 08:35 Dose: 0.25 mcg Documented By: CHEVY Docusate Sodium (Docusate Sodium 100 Mg Cap) 100 mg PO BID [facility] Stop: 11/17/23 02:43 Last Admin: 10/25/23 20:27 Dose: 100 mg Documented By: Admin: 10/25/23 07:55 Dose: 100 mg Documented By: АЛЕКСАНДР Admin: 10/24/23 20:48 Dose: 100 mg Documented By: Admin: 10/24/23 07:47 Dose: 100 mg Documented By: Admin: 10/23/23 20:22 Dose: 100 mg Documented By: Admin: 10/23/23 08:01 Dose: 100 mg Documented By: Admin: 10/22/23 21:11 Dose: 100 mg Documented By: Admin: 10/22/23 08:19 Dose: 100 mg Documented By: Admin: 10/21/23 20:36 Dose: 100 mg Documented By: Admin: 10/21/23 08:50 Dose: 100 mg Documented By: Admin: 10/20/23 20:24 Dose: 100 mg Documented By: Admin: 10/20/23 07:46 Dose: 100 mg Documented By: Admin: 10/19/23 20:48 Dose: 100 mg Documented By: Admin: 10/19/23 07:52 Dose: 100 mg Documented By: Admin: 10/18/23 20:19 Dose: 100 mg Documented By: Admin: 10/18/23 08:35 Dose: 100 mg Documented By: Admin: 10/18/23 03:35 Dose: 100 mg Documented By: SABINE Ferrous Sulfate (Ferrous Sulfate 325 Mg Tab) 325 mg PO Q2D@1700 [facility] Stop: 11/23/23 16:59 Last Admin: 10/24/23 17:22 Dose: 325 mg Documented By: RYAN Furosemide (Furosemide 40 Mg Tab) 40 mg PO BID [facility] Stop: 11/17/23 02:43 Last Admin: 10/21/23 08:49 Dose: 40 mg Documented By: Admin: 10/20/23 20:26 Dose: 40 mg Documented By: Admin: 10/20/23 07:47 Dose: 40 mg Documented By: Admin: 10/19/23 20:47 Dose: 40 mg Documented By: Admin: 10/19/23 07:52 Dose: 40 mg Documented By: Admin: 10/18/23 20:18 Dose: 40 mg Documented By: Admin: 10/18/23 08:35 Dose: 40 mg Documented By: Admin: 10/18/23 03:35 Dose: 40 mg Documented By: SABINE Gabapentin (Gabapentin 300 Mg Cap) 300 mg PO QPM [facility] Stop: 11/17/23 20:59 Last Admin: 10/25/23 20:27 Dose: 300 mg Documented By: Admin: 10/24/23 20:48 Dose: 300 mg Documented By: Admin: 10/23/23 20:22 Dose: 300 mg Documented By: Admin: 10/22/23 21:11 Dose: 300 mg Documented By: Admin: 10/21/23 20:36 Dose: 300 mg Documented By: Admin: 10/20/23 20:24 Dose: 300 mg Documented By: Admin: 10/19/23 20:47 Dose: 300 mg Documented By: Admin: 10/18/23 20:20 Dose: 300 mg Documented By: SABINE Heparin Sodium (Porcine) (Heparin Sod 5,000 Unit/0.5 Ml Vial) 5,000 units SQ Q12 [facility] Stop: 11/17/23 08:59 Last Admin: 10/25/23 20:28 Dose: 5,000 units Documented By: Admin: 10/25/23 07:54 Dose: 5,000 units Documented By: АЛЕКСАНДР Admin: 10/24/23 20:47 Dose: 5,000 units Documented By: Admin: 10/24/23 07:44 Dose: 5,000 units Documented By: Admin: 10/23/23 20:22 Dose: 5,000 units Documented By: Admin: 10/23/23 08:00 Dose: 5,000 units Documented By: Admin: 10/22/23 21:11 Dose: 5,000 units Documented By: Admin: 10/22/23 08:19 Dose: 5,000 units Documented By: Admin: 10/21/23 20:35 Dose: 5,000 units Documented By: Admin: 10/21/23 08:50 Dose: 5,000 units Documented By: Admin: 10/20/23 20:25 Dose: 5,000 units Documented By: Admin: 10/20/23 07:47 Dose: 5,000 units Documented By: Admin: 10/19/23 20:48 Dose: 5,000 units Documented By: Admin: 10/19/23 07:53 Dose: 5,000 units Documented By: Admin: 10/18/23 21:51 Dose: 5,000 units Documented By: Admin: 10/18/23 08:35 Dose: 5,000 units Documented By: CHEVY Insulin Aspart (Insulin Aspart Per Unit Charge) 0 units SC ACHS [facility] Stop: 11/17/23 07:29 Last Admin: 10/26/23 12:18 Dose: 11 units Documented By: CHEVY Co-signed By: BELLE Admin: 10/26/23 08:55 Dose: 7 units Documented By: CHEVY Co-signed By: MARRY Admin: 10/25/23 21:59 Dose: 3 units Documented By: ROGERIO Co-signed By: MARLENE Admin: 10/25/23 17:47 Dose: 7 units Documented By: JOHN Co-signed By: CAROL Admin: 10/25/23 13:24 Dose: 5 units Documented By: АЛЕКСАНДР Co-signed By: ISAI Admin: 10/25/23 08:40 Dose: 8 units Documented By: АЛЕКСАНДР Co-signed By: KADI Admin: 10/24/23 20:48 Dose: 3 units Documented By: TRELL Co-signed By: KYLIE Admin: 10/24/23 17:46 Dose: 5 units Documented By: RYAN Co-signed By: YAZ Admin: 10/24/23 13:28 Dose: 6 units Documented By: RYAN Co-signed By: YAZ Admin: 10/24/23 08:58 Dose: 6 units Documented By: RYAN Co-signed By: YAZ Admin: 10/23/23 22:12 Dose: 3 units Documented By: TRELL Co-signed By: SAB Admin: 10/23/23 17:27 Dose: 8 units Documented By: RYAN Co-signed By: [id number] Admin: 10/23/23 14:55 Dose: Not Given Documented By: RYAN Co-signed By: [id number] Admin: 10/23/23 08:36 Dose: 7 units Documented By: RYAN Co-signed By: [id number] Admin: 10/22/23 21:12 Dose: 1 units Documented By: TRELL Co-signed By: YARY Admin: 10/22/23 17:25 Dose: 4 units Documented By: JOJO Co-signed By: HAIDER Admin: 10/22/23 12:35 Dose: 9 units Documented By: JOJO Co-signed By: HAIDER Admin: 10/22/23 08:59 Dose: 7 units Documented By: JOJO Co-signed By: HAIDER Admin: 10/21/23 20:38 Dose: 1 units Documented By: TRELL Co-signed By: ANDRE Admin: 10/21/23 17:30 Dose: Not Given Documented By: Admin: 10/21/23 12:47 Dose: 14 units Documented By: JOJO Co-signed By: KYLIE Admin: 10/21/23 08:55 Dose: 6 units Documented By: JOJO Co-signed By: KYLIE Admin: 10/20/23 20:51 Dose: 2 units Documented By: TRELL Co-signed By: ANDRE Admin: 10/20/23 18:03 Dose: 4 units Documented By: KYLIE Co-signed By: RYAN Admin: 10/20/23 13:18 Dose: 11 units Documented By: KYLIE Co-signed By: RYAN Admin: 10/20/23 08:49 Dose: 13 units Documented By: KYLIE Co-signed By: RYAN Admin: 10/19/23 20:44 Dose: 4 units Documented By: SCHUYLER Co-signed By: ANDRE Admin: 10/19/23 17:52 Dose: 6 units Documented By: KYLIE Co-signed By: CHIQUI Admin: 10/19/23 13:04 Dose: 14 units Documented By: KYLIE Co-signed By: CHIQUI Admin: 10/19/23 09:04 Dose: 9 units Documented By: KYLIE Co-signed By: CHIQUI Admin: 10/18/23 20:35 Dose: 3 units Documented By: GUSTAVOK Co-signed By: ASHLEY Admin: 10/18/23 18:31 Dose: 6 units Documented By: CHEVY Co-signed By: EMERITA Admin: 10/18/23 12:54 Dose: 10 units Documented By: CHEVY Co-signed By: RODNEY Admin: 10/18/23 08:45 Dose: 9 units Documented By: CHEVY Co-signed By: EMETERIO Lidocaine (Lidocaine 4% Cream 15 Gm Tube) 1 appln EXT PRN PRN PRN Reason: dialysis fistula Stop: 11/22/23 09:48 Last Admin: 10/23/23 10:40 Dose: 1 appln Documented By: RYAN Magnesium Hydroxide (Magnesium Hydroxide Susp 30 Ml Udc) 30 ml PO Q12H PRN PRN Reason: Constipation Stop: 11/17/23 02:43 Last Admin: 10/18/23 14:41 Dose: 30 ml Documented By: CHEVY Ondansetron HCl (Ondansetron Inj 2 Mg/Ml 2 Ml Vial) 4 mg IV Q6H PRN PRN Reason: Nausea Stop: 11/17/23 02:43 Last Admin: 10/18/23 07:54 Dose: 4 mg Documented By: CHEVY Polyethylene Glycol (Polyethylene (Miralax) 17 Gm Pack) 17 gm PO DAILY [facility] Stop: 11/20/23 10:29 Last Admin: 10/25/23 07:54 Dose: 17 gm Documented By: АЛЕКСАНДР Admin: 10/24/23 07:47 Dose: 17 gm Documented By: Admin: 10/23/23 08:02 Dose: 17 gm Documented By: Admin: 10/22/23 08:19 Dose: 17 gm Documented By: Admin: 10/21/23 10:39 Dose: 17 gm Documented By: JOJO Simvastatin (Simvastatin 20 Mg Tab) 20 mg PO QPM [facility] Stop: 11/17/23 20:59 Last Admin: 10/25/23 20:27 Dose: 20 mg Documented By: Admin: 10/24/23 20:48 Dose: 20 mg Documented By: Admin: 10/23/23 20:22 Dose: 20 mg Documented By: Admin: 10/22/23 21:11 Dose: 20 mg Documented By: Admin: 10/21/23 20:36 Dose: 20 mg Documented By: Admin: 10/20/23 20:24 Dose: 20 mg Documented By: Admin: 10/19/23 20:46 Dose: 20 mg Documented By: Admin: 10/18/23 20:20 Dose: 20 mg Documented By: SABINE Tamsulosin HCl (Tamsulosin Hcl 0.4 Mg Cap) 0.4 mg PO QAM [facility] Stop: 11/17/23 08:59 Last Admin: 10/26/23 08:46 Dose: 0.4 mg Documented By: Admin: 10/25/23 07:55 Dose: 0.4 mg Documented By: АЛЕКСАНДР Admin: 10/24/23 07:46 Dose: 0.4 mg Documented By: Admin: 10/23/23 08:01 Dose: 0.4 mg Documented By: Admin: 10/22/23 08:20 Dose: 0.4 mg Documented By: Admin: 10/21/23 08:49 Dose: 0.4 mg Documented By: Admin: 10/20/23 07:47 Dose: 0.4 mg Documented By: Admin: 10/19/23 07:52 Dose: 0.4 mg Documented By: Admin: 10/18/23 08:35 Dose: 0.4 mg Documented By: CHEVY Coding Level of Care Code 08602 IN/OBS CONSULT LVL 2,35M Diagnoses Evaluation by psychiatric service required Z00.8 Cognitive disorder F09 Anxiety F41.9 End-stage renal disease needing dialysis N18.6; Z99.2
[2023-10-26] MEDS: LANTUS PER UNIT CHARGE SQ SCH (21:44)
--- NOTE | 2023-10-27 09:08 | Nephrology Progress Note ---
Date of Service October 27, 2023 Assessment & Plan (1) End-stage renal disease needing dialysis: Plan: * [facility]. HD provided 10/23/23, 10/25/23, 10/26/23 * RUE AVF created 04/12. Transposed 08/10. * Awaiting am labs * Hold HD this weekend and then plan on MWF schedule * Case management has been consulted to set up outpatient HD, arrange transportation and discuss assisted living options w/ patient (2) Hypertension: Plan: * Losartan stopped due to progressive renal dysfunction. * Hold furosemide * Continue amlodipine * BP has improved with UF during HD (3) Vomiting: Plan: * Hold Velphoro. Management of constipation per hospitalist. (4) Secondary hyperparathyroidism of renal origin: Plan: * Serum calcium acceptable. Remains on calcitriol 0.25 mg daily. (5) Anemia: Plan: * Hgb 10.7, iron sat 41%, ferritin 561. Will monitor Admission and Anticipated Discharge Date Admission Date: October 17, 2023 Subjective Mr. Miles was evaluated in his hospital room this morning. He completed his 3rd HD yesterday. He wishes to pursue assisted living to help with DM management and transportation to OP HD Review of Systems Constitutional: no fever Eyes: no problem reported Ear, Nose, Mouth, Throat: no problem reported Respiratory: no cough and no dyspnea Cardiovascular: no chest pain Gastrointestinal: no abdominal pain, no nausea, no vomiting and no diarrhea/loose stools Integumentary: no rash Physical Exam Constitutional: not in distress Eyes: PERRL, conjunctivae normal, anicteric sclerae ENMT: external ear and nose normal, oropharynx normal Neck: trachea midline, no thyromegaly Respiratory: normal respiratory effort, lungs clear to auscultation Cardiovascular: Rate/Rhythm: regular rate and regular rhythm Extremities: + AV fistula (Positive bruit); no edema Gastrointestinal (Abdomen): normal bowel sounds, soft, nontender, no hepatosplenomegaly Skin: no rashes, warm and dry Neurologic: Speech / Cognition: normal speech Results & Data Vital Signs (Past 12 Hours) Vital Signs Temp Pulse Resp BP Pulse Ox O2 Del Method 10/27/23 07:23 37 C 79 16 154/71 H 96 Room Air 10/26/23 21:39 37.1 C 90 14 132/72 96 Room Air Laboratory Results Laboratory Results - last 24 hr 10/26/23 10/26/23 10/26/23 11:35 17:13 20:35 POC Glucose 217 H 167 H 169 H 10/27/23 07:34 POC Glucose 156 H Laboratory Results - last 24 hr 10/26/23 10/26/23 10/26/23 11:35 17:13 20:35 POC Glucose 217 H 167 H 169 H 10/27/23 07:34 POC Glucose 156 H PG Care Time/CCT Total # of Minutes Spent Total Time Spent with Patient: Total time spent is greater than 50% in coordination of care (as documented) at patient's floor/unit and/or counseling patient: Coding Level of Care Code 05004 SUB INP/OBS CARE 3/50MIN Diagnoses End-stage renal disease needing dialysis N18.6; Z99.2 Hypertension I10 Vomiting R11.10 Secondary hyperparathyroidism of renal origin N25.81 Anemia D64.9
--- NOTE | 2023-10-27 16:37 | Hospitalist Progress Note ---
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 initiated hemodialysis this admission #Presented with KIRK on CKD-5 not on dialysis. 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 Progressed to ESRD and initiated hemodialysis this admission hemodialysis initiated this admission first runs 10/22, 10/23, 10/24 - tolerating well. BUN/Cr reduced to 42/3.56 anticipate transition to tiw HD per nephrology continue calcitriol manager cosmetics consulting access: SUKHDEV GUZMANF, outpatient manager cosmetics: Dr. Alejandro awaiting appropriate disposition and outpatient dialysis appointment #T2DM continue basal bolus insulin - cont 12 units of glargine plus Premeal aspart - at goal 10/26 does have CGM at home, presented with severe hypoglycemia #Leukocytosis Unclear source possibly was reactive related to vomiting, remains afebrile and asymptomatic, resolved. Admission/ED testing negative. See last prog note 10/24 for details. #Intellectual disability Pt having increasing difficulty caring for himself Has caregivers in during the day but alone overnight POAs are sisters and they are interested in long chain quiller tender placement for him at this time Plan is for placement - discussed with care coordination, obtained psychiatric consult 10/26 so that office of aging can complete level 2 letter. #Anxiety buspar - stable no issues #BPH flomax #HTN amlodipine losartan anemia of CKD - stable, management per manager cosmetics -on oral iron QOD Code status: full code DVT prophylaxis: heparin SQ Disposition: Plan is for placement, He will need to establish outpatient dialysis chair prior to discharge. Please call sisters with updates: Ban ; Renay Admission and Anticipated Discharge Date Admission Date: October 17, 2023 Subjective doing fine, has been walking and trying to get his strength up tolerating dialysis well no shortness of breath or leg edema Physical Exam 2 Physical Exam: PHYSICAL EXAMINATION Last 24h vital signs reviewed, see documentation in flowsheet General: sitting on side of the bed looking at the window exam unchanged 10/26 HEENT: Normocephalic, atraumatic, pupils round and equal, sclerae anicteric, no conjunctival injection, moist mucus membranes Lungs: Normal respiratory effort. Clear to auscultation bilaterally. No RRW Heart: Regular rate and rhythm, no murmurs. No JVD Abdomen: Soft, nondistended. Bowel sounds present. Extremities: Warm, dry, well-perfused. mild bilateral lower extremity edema. RUE AVF +thrill Neuro: Alert and oriented x 4, face symmetric, moves 4 extremities well Psych: Normal affect and behavior Results & Data Results & Data Vital Signs (Past 12 Hours) Vital Signs Temp Pulse Resp BP Pulse Ox O2 Del Method 10/27/23 15:26 36.9 C 84 16 128/66 97 Room Air 10/27/23 07:23 37 C 79 16 154/71 H 96 Room Air Laboratory Results 10/25/23 15:07 10/25/23 15:07 PG Care Time/CCT Total # of Minutes Spent Total Time Spent with Patient: Total time spent is greater than 50% in coordination of care (as documented) at patient's floor/unit and/or counseling patient: Coding Level of Care Code 36159 SUB INP/OBS CARE 04/13MIN Diagnoses Hypoglycemia due to type 2 diabetes mellitus E11.649 Acute kidney injury superimposed on stage 5 chronic kidney disease, not on chronic dialysis N17.9; N18.5 End stage renal disease N18.6 Cognitive disorder F09 Anxiety F41.9
[2023-10-28 06:48] LABS: Hematocrit (blood only) 30.2 % (42.0-52.0); Hemoglobin 10.1 g/dl (14.0-18.0); Mean Corpuscular Hemoglobin 30.1 pg (25.0-34.0); Mean Corpuscular Hgb Conc 33.4 g/dL (32.0-36.0); Mean Corpuscular Volume 90.1 fL (80.0-100.0); Mean Platelet Volume 9.2 fL (9.4-12.4); Platelet Count 187 K/uL (130-400); RDW Coefficient of Variation 12.4 % (11.5-14.5); RDW Standard Deviation 40.3 fL (36.4-46.3); Red Blood Count 3.35 M/uL (4.70-6.10); White Blood Count 12.15 K/ul (4.8-10.8)
[2023-10-28 08:30] LABS: BUN Creatinine Ratio 12.4 (10-20); Calcium 9.1 mg/dl (8.6-10.3); Creatinine Clr Calc Pharmacy 16.8 ml/min; Est GFR (African American) 12.9 ml/min; Est GFR (Non-African American) 11.1 ml/min; Potassium 4.1 mmol/L (3.5-5.1)
--- NOTE | 2023-10-28 13:04 | Nephrology Progress Note ---
Date of Service October 28, 2023 Assessment & Plan (1) End stage renal disease: (2) Diabetes type 2, uncontrolled: (3) Anemia: (4) Secondary hyperparathyroidism of renal origin: (5) Hypertension: Plan ESKD secondary to diabetic nephropathy, admitted to the hospital with gener alized weakness and hypoglycemia. Noted further worsening of kidney function, creatinine was above 5 with BUN 92 and started on HD on 10/23/23 via d Rt arm AV fistula placed on 04/12/2023 and had transposition on 08/08/2023. He was also referred to [facility] transplant. Bin has been living by himself with his caregiver as he has some intellectual disability. His sisters has been involved in his care. But Bin and his family now feels it would be better for him to live in a long-term care facility where he can get 24 hours care. [facility], case management working to find the right place for him. Off of Jardiance. Has been tolerating dialysis well, volume status improved, blood pressure well- controlled. --Plan for next dialysis Monday. --Right arm nephrology precaution, dose medications for EGFR less than 10. --continue on calcitriol 0.25 mcg daily -- Check iron study, phosphorus, if phosphorus remains elevated will start on phosphorus binder. Plan for Epogen with dialysis Monday and IV Venofer as needed -- Continue on Nephrocaps daily. Admission and Anticipated Discharge Date Admission Date: October 17, 2023 Johanna Steward was seen and evaluated this morning. He was otherwise doing well, has been tolerating dialysis, denied any symptoms or concerns. Had dialysis yesterday. Currently blood pressure, volume status, electrolyte acceptable. Review of Systems Review of Systems: Detailed review of system was otherwise unremarkable. Physical Exam Constitutional: no acute distress Respiratory: normal respiratory effort, lungs clear to auscultation Cardiovascular: Rate/Rhythm: regular rate and regular rhythm Heart Sounds: normal S1 and normal S2 Extremities: + AV fistula (Rt BC AVF with thrill and bruit, healed scar) Neurologic: no focal motor deficits Psychiatric: A+Ox3, euthymic affect Results & Data Vital Signs (Past 12 Hours) Vital Signs Temp Pulse Resp BP Pulse Ox O2 Del Method 10/28/23 07:21 37 C 85 20 137/79 95 Room Air PG Care Time/CCT Total # of Minutes Spent Total Time Spent with Patient: Total time spent is greater than 50% in coordination of care (as documented) at patient's floor/unit and/or counseling patient: Coding Level of Care Code 48793 SUB INP/OBS CARE 2/35MIN Diagnoses End stage renal disease N18.6 Diabetes type 2, uncontrolled E11.65 Anemia D64.9 Secondary hyperparathyroidism of renal origin N25.81 Hypertension I10
--- NOTE | 2023-10-28 16:54 | Hospitalist Progress Note ---
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 initiated hemodialysis this admission #Presented with KIRK on CKD-5 not on dialysis. 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 Progressed to ESRD and initiated hemodialysis this admission hemodialysis initiated this admission first runs 10/22, 10/23, 10/24 - tolerating well. BUN/Cr reduced to 42/3.56 anticipate transition to tiw HD Monday per nephrology continue calcitriol used car salesperson consulting access: SUKHDEV ABDI, outpatient used car salesperson: Dr. Alejandro awaiting appropriate disposition and outpatient dialysis appointment #T2DM continue basal bolus insulin - cont 12 units of glargine plus Premeal aspart - at goal 10/27 does have CGM at home, presented with severe hypoglycemia #Leukocytosis Unclear source initially up to 20,000 stress response related to vomiting, however mild leukocytosis persists. Admission/ED testing negative. See last prog note 10/24 for details. Remains asymptomatic, no fevers, hypoxia or focal symptoms. will get blood smear and another CBC with diff #Intellectual disability Pt having increasing difficulty caring for himself Has caregivers in during the day but alone overnight POAs are sisters and they are interested in [facility] placement for him at this time Plan is for placement - discussed with care coordination, obtained psychiatric consult 10/26 so that office of aging can complete level 2 letter. #Anxiety buspar - stable no issues #BPH flomax #HTN continue amlodipine and losartan, control improved with serial HD anemia of CKD - stable, management per used car salesperson -on oral iron QOD Code status: full code DVT prophylaxis: heparin SQ Disposition: Plan is for placement, He will need to establish outpatient dialysis chair prior to discharge. Please call sisters with updates: Ban ; Renay Admission and Anticipated Discharge Date Admission Date: October 17, 2023 Johanna Johns is doing fine he is standing in the room with his walker trying to get his strength up. no shortness of breath leg edema seems to be slowly improving Physical Exam 2 Physical Exam: PHYSICAL EXAMINATION Last 24h vital signs reviewed, see documentation in flowsheet General: standing up in the room with his walker watching television HEENT: Normocephalic, atraumatic, pupils round and equal, sclerae anicteric, no conjunctival injection, moist mucus membranes Lungs: Normal respiratory effort. Heart: deferred Abdomen: nondistended Extremities: Warm, dry, well-perfused. 1+ symmetric lower extremity edema RUE AVF +thrill Neuro: Alert and oriented x 4, face symmetric, moves 4 extremities well Psych: Normal affect and behavior Results & Data Results & Data Vital Signs (Past 12 Hours) Vital Signs Temp Pulse Resp BP Pulse Ox O2 Del Method 10/28/23 15:46 36.7 C 85 18 147/74 H 98 Room Air 10/28/23 07:21 37 C 85 20 137/79 95 Room Air Laboratory Results 10/28/23 06:23 10/28/23 06:23 PG Care Time/CCT Total # of Minutes Spent Total Time Spent with Patient: Total time spent is greater than 50% in coordination of care (as documented) at patient's floor/unit and/or counseling patient: Coding Level of Care Code 68154 SUB INP/OBS CARE 2/35MIN Diagnoses Hypoglycemia due to type 2 diabetes mellitus E11.649 Acute kidney injury superimposed on stage 5 chronic kidney disease, not on chronic dialysis N17.9; N18.5 End stage renal disease N18.6 Cognitive disorder F09 Anxiety F41.9
[2023-10-29 07:12] LABS: Basophils # (auto) 0.07 K/uL (0.00-0.20); Basophils % (auto) 0.6 %; Eosinophils # (auto) 0.59 K/uL (0.00-0.50); Eosinophils % (auto) 5.4 %; Hematocrit (blood only) 30.7 % (42.0-52.0); Hemoglobin 10.1 g/dl (14.0-18.0); Immature Granulocytes # (auto) 0.13 K/uL (0.01-0.20); Immature Granulocytes % (auto) 1.2 %; Lymphocytes # (auto) 1.31 K/uL (1.20-3.40); Lymphocytes % (auto) 11.9 %; Mean Corpuscular Hemoglobin 30.1 pg (25.0-34.0); Mean Corpuscular Hgb Conc 32.9 g/dL (32.0-36.0); Mean Corpuscular Volume 91.4 fL (80.0-100.0); Mean Platelet Volume 9.2 fL (9.4-12.4); Monocytes # (auto) 0.62 K/uL (0.11-0.59); Monocytes % (auto) 5.7 %; Neutrophils # (auto) 8.25 K/uL (1.40-6.50); Neutrophils % (auto) 75.2 %; Platelet Count 189 K/uL (130-400); RDW Coefficient of Variation 12.4 % (11.5-14.5); RDW Standard Deviation 41.1 fL (36.4-46.3); Red Blood Count 3.36 M/uL (4.70-6.10); White Blood Count 10.97 K/ul (4.8-10.8)
[2023-10-29 08:07] LABS: Albumin Level 3.8 gm/dl (3.4-5.0); BUN Creatinine Ratio 14.1 (10-20); Calcium 8.9 mg/dl (8.6-10.3); Creatinine Clr Calc Pharmacy 16.8 ml/min; Est GFR (African American) 12.7 ml/min; Est GFR (Non-African American) 10.9 ml/min; Phosphorus 5.4 mg/dl (2.5-4.9)
[2023-10-29 08:40] LABS: Ferritin 443.1 ng/ml (8-388)
[2023-10-29] MEDS: NEPHROCAPS PO SCH (10:32)
--- NOTE | 2023-10-29 13:08 | Nephrology Progress Note ---
Date of Service October 29, 2023 Assessment & Plan (1) End stage renal disease: (2) Diabetes type 2, uncontrolled: (3) Anemia: (4) Secondary hyperparathyroidism of renal origin: (5) Hypertension: Plan ESKD secondary to diabetic nephropathy, admitted to the hospital with gener alized weakness and hypoglycemia. Noted further worsening of kidney function, creatinine was above 5 with BUN 92 and started on HD on 10/23/23 via d Rt arm AV fistula placed on 04/12/2023 and had transposition on 08/08/2023. He was also referred to [facility] transplant. Bin has been living by himself with his caregiver as he has some intellectual disability. His sisters has been involved in his care. But Bin and his family now feels it would be better for him to live in a long-term care facility where he can get 24 hours care. Waiting on half-way, case management working to find the right place for him. Off of Jardiance. Has been tolerating dialysis well, volume status improved, blood pressure well- controlled. Iron study showed adequate iron store, phosphorus 5.4. --Plan for next dialysis tomorrow --Right arm nephrology precaution, dose medications for EGFR less than 10. --continue on calcitriol 0.25 mcg daily --Start on Renvela 1 tab 3 times a day with meals, will avoid Velphoro in future as he did not tolerate well. --Epogen with dialysis tomorrow. --Continue on Nephrocaps daily. Admission and Anticipated Discharge Date Admission Date: October 17, 2023 Johanna Steward was seen and evaluated this morning. He has been otherwise doing well, denied any symptoms or concerns. He is requesting a different phosphorus binder as he did not tolerate Velphoro. had dialysis Monday. Blood pressure slightly elevated but volume status, electrolyte acceptable. Review of Systems Review of Systems: Detailed review of system was otherwise unremarkable. Physical Exam Constitutional: no acute distress Respiratory: normal respiratory effort, lungs clear to auscultation Cardiovascular: Rate/Rhythm: regular rate and regular rhythm Heart Sounds: normal S1 and normal S2 Extremities: + AV fistula (Rt BC AVF with thrill and bruit, healed scar) Neurologic: no focal motor deficits Psychiatric: A+Ox3, euthymic affect Results & Data Vital Signs (Past 12 Hours) Vital Signs Temp Pulse Resp BP Pulse Ox O2 Del Method 10/29/23 07:58 36.5 C 86 18 152/71 H 99 Room Air PG Care Time/CCT Total # of Minutes Spent Total Time Spent with Patient: Total time spent is greater than 50% in coordination of care (as documented) at patient's floor/unit and/or counseling patient: Coding Level of Care Code 93805 SUB INP/OBS CARE 2/35MIN Diagnoses End stage renal disease N18.6 Diabetes type 2, uncontrolled E11.65 Anemia D64.9 Secondary hyperparathyroidism of renal origin N25.81 Hypertension I10
--- NOTE | 2023-10-29 16:59 | Hospitalist Progress Note ---
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 initiated hemodialysis this admission #Presented with KIRK on CKD-5 not on dialysis. 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 Progressed to ESRD and initiated hemodialysis this admission hemodialysis initiated this admission first runs 10/22, 10/23, 10/24 - tolerating well. BUN/Cr reduced to 42/3.56 continue calcitriol beveling machine operator consulting - reviewed recs and note access: SUKHDEV ABDI, outpatient beveling machine operator: Dr. Alejandro awaiting appropriate disposition and outpatient dialysis appointment starting 3 times a week dialysis tomorrow #T2DM continue basal bolus insulin - cont 12 units of glargine plus Premeal aspart - at goal 10/28 does have CGM at home, presented with severe hypoglycemia #Leukocytosis Unclear source initially up to 20,000 stress response related to vomiting, however mild leukocytosis persists. Admission/ED testing negative. See last prog note 10/24 for details. Remains asymptomatic, no fevers, hypoxia or focal symptoms. reviewed CBC today white count remains mildly elevated differential looks normal slight elevation in eosinophils which is barely goes above the normal range I do not think this is significant. Peripheral smear Path review pending things possible that he had some aspiration pneumonitis at the time of admission related to his vomiting and inflammation is taking some time to resolve #Intellectual disability Pt having increasing difficulty caring for himself Has caregivers in during the day but alone overnight POAs are sisters and they are interested in penitentiary placement for him at this time Plan is for placement #Anxiety buspar - stable no issues #BPH flomax #HTN continue amlodipine and losartan, control improved with serial HD anemia of CKD - stable, management per beveling machine operator -on oral iron QOD Code status: full code DVT prophylaxis: heparin SQ Disposition: Plan is for placement, He will need to establish outpatient dialysis chair prior to discharge. Please call sisters with updates: Ban ; Renay Admission and Anticipated Discharge Date Admission Date: October 17, 2023 Subjective I am taking it 1 day at a time leg edema slowly improving, no dyspnea, working on his walking tolerance and balance Physical Exam 2 Physical Exam: PHYSICAL EXAMINATION Last 24h vital signs reviewed, see documentation in flowsheet General: sitting on edge of bed exam unchanged 10/28 HEENT: Normocephalic, atraumatic, pupils round and equal, sclerae anicteric, no conjunctival injection, moist mucus membranes Lungs: Normal respiratory effort. CTAB Heart: regular no murmurs rubs or gallops Abdomen: nondistended Extremities: Warm, dry, well-perfused. 1+ symmetric lower extremity edema RUE AVF +thrill Neuro: Alert and oriented x 4, face symmetric, moves 4 extremities well Psych: Normal affect and behavior Results & Data Results & Data Vital Signs (Past 12 Hours) Vital Signs Temp Pulse Resp BP Pulse Ox O2 Del Method 10/29/23 14:57 36.4 C L 85 17 162/69 H 98 Room Air 10/29/23 07:58 36.5 C 86 18 152/71 H 99 Room Air Laboratory Results 10/29/23 06:30 10/29/23 06:30 PG Care Time/CCT Total # of Minutes Spent Total Time Spent with Patient: Total time spent is greater than 50% in coordination of care (as documented) at patient's floor/unit and/or counseling patient: Coding Level of Care Code 04526 SUB INP/OBS CARE 2/35MIN Diagnoses Hypoglycemia due to type 2 diabetes mellitus E11.649 Acute kidney injury superimposed on stage 5 chronic kidney disease, not on chronic dialysis N17.9; N18.5 End stage renal disease N18.6 Cognitive disorder F09 Anxiety F41.9
[2023-10-29] MEDS: SEVELAMER CARBONATE 800 MG TAB PO SCH (17:38)
[2023-10-30] MEDS: EPOETIN ALFA 20,000 UNITS/ML VIAL IV ONE (12:15)
--- NOTE | 2023-10-30 12:49 | Nephrology Progress Note ---
Date of Service October 30, 2023 Assessment & Plan (1) End stage renal disease: (2) Diabetes type 2, uncontrolled: (3) Anemia: (4) Secondary hyperparathyroidism of renal origin: (5) Hypertension: Plan ESKD secondary to diabetic nephropathy, admitted to the hospital with gener alized weakness and hypoglycemia. Noted further worsening of kidney function, creatinine was above 5 with BUN 92 and started on HD on 10/23/23 via d Rt arm AV fistula placed on 04/12/2023 and had transposition on 08/08/2023. [facility] was [facility] Bin has been living by himself with his caregiver as he has some intellectual disability. His sisters has been involved in his care. But Bin and his family now feels it would be better for him to live in a long-term care facility where he can get 24 hours care. Waiting on [facility], case management working to find the right place for him. Off of Jardiance. Has been tolerating dialysis well, volume status improved, blood pressure well- controlled. Iron study showed adequate iron store, phosphorus 5.4. --Right arm nephrology precaution, dose medications for EGFR less than 10. --continue on calcitriol 0.25 mcg daily --on Renvela 1 tab 3 times a day with meals, will avoid Velphoro in future as he did not tolerate well. --Epogen with dialysis --Continue on Nephrocaps daily. Admission and Anticipated Discharge Date Admission Date: October 17, 2023 Johanna Steward was seen and evaluated this morning. He has been otherwise doing well, denied any symptoms or concerns. Blood pressure improved, volume status, electrolyte acceptable. Review of Systems Review of Systems: Detailed review of system was otherwise unremarkable. Physical Exam Constitutional: no acute distress Respiratory: normal respiratory effort, lungs clear to auscultation Cardiovascular: Rate/Rhythm: regular rate and regular rhythm Heart Sounds: normal S1 and normal S2 Extremities: + AV fistula (Rt BC AVF with thrill and bruit, healed scar) Neurologic: no focal motor deficits Psychiatric: A+Ox3, euthymic affect Results & Data Vital Signs (Past 12 Hours) Vital Signs Temp Pulse Pulse Resp BP BP Pulse Ox 10/30/23 12:30 84 135/77 10/30/23 12:00 84 135/73 10/30/23 11:30 85 152/76 H 10/30/23 11:00 86 143/76 H 10/30/23 10:30 84 145/74 H 10/30/23 10:00 82 116/66 10/30/23 09:30 80 131/69 10/30/23 09:18 36.5 C 79 10/30/23 07:57 36.8 C 77 18 117/63 96 10/30/23 07:15 O2 Del Method 10/30/23 12:30 10/30/23 12:00 10/30/23 11:30 10/30/23 11:00 10/30/23 10:30 10/30/23 10:00 10/30/23 09:30 10/30/23 09:18 10/30/23 07:57 Room Air 10/30/23 07:15 Room Air PG Care Time/CCT Total # of Minutes Spent Total Time Spent with Patient: Total time spent is greater than 50% in coordination of care (as documented) at patient's floor/unit and/or counseling patient: Coding Level of Care Code 82316 SUB INP/OBS CARE 2/35MIN Diagnoses End stage renal disease N18.6 Diabetes type 2, uncontrolled E11.65 Anemia D64.9 Secondary hyperparathyroidism of renal origin N25.81 Hypertension I10
--- NOTE | 2023-10-30 13:02 | Hospitalist Progress Note ---
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 initiated hemodialysis this admission #Presented with KIRK on CKD-5 not on dialysis. 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 Progressed to ESRD and initiated hemodialysis this admission hemodialysis initiated this admission first runs 10/22, 10/23, 10/24 - tolerating we ll. Continue 3x/wk. corporate safety manager consulting - continue calcitriol - continue Renvela and Nephrocaps access: RUE AVF, outpatient corporate safety manager: Dr. Alejandro awaiting appropriate disposition and outpatient dialysis appointment Also with anemia of CKD - epogen and PO Fe per nephrology (2) Hypoglycemia due to type 2 diabetes mellitus: Plan: #T2DM continue basal bolus insulin - cont 12 units of glargine plus Premeal aspart - at goal 10/28 does have CGM at home, presented with severe hypoglycemia (3) Leukocytosis: Plan: Unclear source initially up to 20,000 stress response related to vomiting, however mild leukocytosis persists but improving - CXR/procal/UA/COVID/flu/rsv negative - possible he had some aspiration pneumonitis at the time of admission related to his vomiting and inflammation is taking some time to resolve Remains asymptomatic, no fevers, hypoxia or focal symptoms. Peripheral smear Path: no infectious signs, cause of leukocytosis left for clinical correlation. (4) End stage renal disease: Plan: Started on 3x/week dialysis this admission as above (5) Cognitive disorder: Plan: Pt having increasing difficulty caring for himself Has caregivers in during the day but alone overnight POAs are sisters and they are interested in nursing home placement for him at this time Plan is nursing home placement, CM following Plan Chronic stable medical problems: * anxiety - continue buspar * BPH - continue flomax * HTN - continue amlodipine, control improved with serial HD Code status: full code DVT prophylaxis: heparin SQ Disposition: Plan is for placement, He will need to establish outpatient dialysis chair prior to discharge. Please call sisters with updates: Ban ; Renay Admission and Anticipated Discharge Date Admission Date: October 17, 2023 Supervising Physician Co-Signing Physician Notes PA Supervision Note: I did not personally see or examine the patient today, but I verified all benitez points of MANISHA Richards's assessment and plan with the following exceptions/additions: Patient no longer on losartan. Home Lasix is on hold-will need to clarify if nephrology wants him to continue on this Subjective Patient seen during dialysis. Does have mild neck pain, he thinks happened after sleeping wrong. Good appetite Review of Systems Review of Systems: All systems reviewed & are unremarkable except as noted in Subjective Physical Exam Physical Exam: General: NAD, VS as above Resp: normal respiratory effort, no accessory muscle use CV: well perfused Abd: soft, non tender, Extremities: Moves all extremities, no edema Neuro: A&O x3, Skin: intact, no lesions noted Results & Data Results & Data Vital Signs (Past 12 Hours) Vital Signs Temp Pulse Pulse Resp BP BP Pulse Ox 10/30/23 12:30 84 135/77 10/30/23 12:00 84 135/73 10/30/23 11:30 85 152/76 H 10/30/23 11:00 86 143/76 H 10/30/23 10:30 84 145/74 H 10/30/23 10:00 82 116/66 10/30/23 09:30 80 131/69 10/30/23 09:18 36.5 C 79 10/30/23 07:57 36.8 C 77 18 117/63 96 10/30/23 07:15 O2 Del Method 10/30/23 12:30 10/30/23 12:00 10/30/23 11:30 10/30/23 11:00 10/30/23 10:30 10/30/23 10:00 10/30/23 09:30 10/30/23 09:18 10/30/23 07:57 Room Air 10/30/23 07:15 Room Air Laboratory Results POC blood glucose reviewed peripheral smear reviewed PG Care Time/CCT Total # of Minutes Spent Total Time Spent with Patient: Total time spent is greater than 50% in coordination of care (as documented) at patient's floor/unit and/or counseling patient: Coding Level of Care Code 06547 SUB INP/OBS CARE 2/35MIN Diagnoses Acute kidney injury superimposed on stage 5 chronic kidney disease, not on chronic dialysis N17.9; N18.5 Hypoglycemia due to type 2 diabetes mellitus E11.649 Leukocytosis D72.829 End stage renal disease N18.6 Cognitive disorder F09
--- NOTE | 2023-10-31 10:43 | Hospitalist Progress Note ---
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 initiated hemodialysis this admission #Presented with KIRK on CKD-5 not on dialysis. 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 Progressed to ESRD and initiated hemodialysis this admission hemodialysis initiated this admission first runs 10/22, 10/23, 10/24 - tolerating we ll. Continue 3x/wk. latex caster consulting - continue calcitriol - continue Renvela and Nephrocaps access: RUE AVF, outpatient latex caster: Dr. Alejandro awaiting appropriate disposition and outpatient dialysis appointment Also with anemia of CKD - epogen and PO Fe per nephrology AM dialysis lab - renal panel and CBC (2) Hypoglycemia due to type 2 diabetes mellitus: Plan: Jardiance has been discontinued. - continue basal bolus insulin -10/30 increase to 14 units of glargine plus Premeal aspart does have CGM at home, presented with hypoglycemia (reported down to 29 at home) (3) Leukocytosis: Plan: Unclear source initially up to 20,000 stress response related to vomiting, however mild leukocytosis persists but improving - CXR/procal/UA/COVID/flu/rsv negative - possible he had some aspiration pneumonitis at the time of admission rela chadd to his vomiting and inflammation is taking some time to resolve Remains asymptomatic, no fevers, hypoxia or focal symptoms. Peripheral smear Path: no infectious signs, cause of leukocytosis left for clinical correlation. (4) End stage renal disease: Plan: Started on 3x/week dialysis this admission as above (5) Cognitive disorder: Plan: Pt having increasing difficulty caring for himself Has caregivers in during the day but alone overnight POAs are sisters and they are interested in lobsterman placement for him at this time Plan is lobsterman placement, CM following Plan Chronic stable medical problems: * anxiety - continue buspar * BPH - continue flomax * HTN - continue amlodipine, control improved with serial HD Code status: full code DVT prophylaxis: heparin SQ Disposition: Plan is for placement, He will need to establish outpatient dialysis chair prior to discharge. Please call sisters with updates: Ban ; Renay Admission and Anticipated Discharge Date Admission Date: October 17, 2023 Supervising Physician Co-Signing Physician Notes MANISHA Supervision Note: I did not personally see or examine the patient today, but I verified all benitez points of MANISHA Richards's assessment and plan with the following exceptions/additions: Home Lasix is on hold-will need to clarify if nephrology wants him to continue on this Subjective Patient seen sitting up in the chair. Complains of low back and and some lower neck/upper back pain with certain movements. Feels like he slept wrong. Tylenol has been helping the back pain good appetite, stil making urine Review of Systems Review of Systems: All systems reviewed & are unremarkable except as noted in HPI & below Physical Exam Physical Exam: General: NAD, VS as above, sitting up in the chair Resp: normal respiratory effort, lungs clear to auscultation CV: RRR, no murmur, Abd: normal bowel sounds, non tender, no hepatosplenomegaly Back: no pain to palpation to spinous process Extremities: Moves all extremities, no edema Neuro: A&O x3, Results & Data Results & Data Vital Signs (Past 12 Hours) Vital Signs Temp Pulse Resp BP Pulse Ox O2 Del Method 10/31/23 07:46 37 C 74 16 105/67 97 Room Air Laboratory Results POC glucose reviewed PG Care Time/CCT Total # of Minutes Spent Total Time Spent with Patient: Total time spent is greater than 50% in coordination of care (as documented) at patient's floor/unit and/or counseling patient: Coding Level of Care Code 25918 SUB INP/OBS CARE 2/35MIN Diagnoses Acute kidney injury superimposed on stage 5 chronic kidney disease, not on chronic dialysis N17.9; N18.5 Hypoglycemia due to type 2 diabetes mellitus E11.649 Leukocytosis D72.829 End stage renal disease N18.6 Cognitive disorder F09
[2023-10-31] MEDS: LIDOCAINE 5% 1 PATCH TD SCH (11:27)
--- NOTE | 2023-10-31 12:01 | Nephrology Progress Note ---
Date of Service October 31, 2023 Assessment & Plan (1) End stage renal disease: (2) Diabetes type 2, uncontrolled: (3) Anemia: (4) Secondary hyperparathyroidism of renal origin: (5) Hypertension: Plan ESKD secondary to diabetic nephropathy, admitted to the hospital with gener alized weakness and hypoglycemia. Noted further worsening of kidney function, creatinine was above 5 with BUN 92 and started on HD on 10/23/23 via d Rt arm AV fistula placed on 04/12/2023 and had transposition on 08/08/2023. [facility] Bin has been living by himself with his caregiver as he has some intellectual disability. His sisters has been involved in his care. But Bin and his family now feels it would be better for him to live in a long-term care facility where he can get 24 hours care. [facility]ing on [facility], case management working to find the right place for him. Off of Jardiance. Has been tolerating dialysis well, volume status improved, blood pressure well- controlled. Iron study showed adequate iron store, phosphorus 5.4. --Continue Monday, , Monday dialysis, waiting on long-term care facility placement and outpatient dialysis set up --right arm nephrology precaution, dose medications for EGFR less than 10. --continue on calcitriol 0.25 mcg daily --on Renvela 1 tab 3 times a day with meals, will avoid Velphoro in future as he did not tolerate well. --Epogen with dialysis --Continue on Nephrocaps daily. Admission and Anticipated Discharge Date Admission Date: October 17, 2023 Subjective Bin was seen and evaluated this morning while he was getting occupational therapy. He has been otherwise doing well, denied any symptoms or concerns. Blood pressure improved, volume status, electrolyte acceptable. Waiting for long-term care placement Review of Systems Review of Systems: Detailed review of system was otherwise unremarkable. Physical Exam Constitutional: no acute distress Respiratory: normal respiratory effort, lungs clear to auscultation Cardiovascular: Rate/Rhythm: regular rate and regular rhythm Heart Sounds: normal S1 and normal S2 Extremities: + AV fistula (Rt BC AVF with thrill and bruit, healed scar) Neurologic: no focal motor deficits Psychiatric: A+Ox3, euthymic affect Results & Data Vital Signs (Past 12 Hours) Vital Signs Temp Pulse Resp BP Pulse Ox O2 Del Method 10/31/23 08:00 Room Air 10/31/23 07:46 37 C 74 16 105/67 97 Room Air PG Care Time/CCT Total # of Minutes Spent Total Time Spent with Patient: Total time spent is greater than 50% in coordination of care (as documented) at patient's floor/unit and/or counseling patient: Coding Level of Care Code 13393 SUB INP/OBS CARE 2/35MIN Diagnoses End stage renal disease N18.6 Diabetes type 2, uncontrolled E11.65 Anemia D64.9 Secondary hyperparathyroidism of renal origin N25.81 Hypertension I10
[2023-11-01 08:04] LABS: Albumin Level 4.1 gm/dl (3.4-5.0); Calcium 9.2 mg/dl (8.6-10.3)
[2023-11-01 08:12] LABS: BUN Creatinine Ratio 12.3 (10-20); Creatinine Clr Calc Pharmacy 18.7 ml/min; Est GFR (African American) 14.8 ml/min; Est GFR (Non-African American) 12.7 ml/min; Phosphorus 4.8 mg/dl (2.5-4.9)
[2023-11-01 08:20] LABS: Hematocrit (blood only) 29.9 % (42.0-52.0); Mean Corpuscular Hemoglobin 30.8 pg (25.0-34.0); Mean Corpuscular Hgb Conc 33.4 g/dL (32.0-36.0); Mean Platelet Volume 8.6 fL (9.4-12.4); Platelet Count 172 K/uL (130-400); RDW Coefficient of Variation 12.8 % (11.5-14.5); RDW Standard Deviation 41.9 fL (36.4-46.3); Red Blood Count 3.25 M/uL (4.70-6.10); White Blood Count 11.47 K/ul (4.8-10.8)
--- NOTE | 2023-11-01 11:29 | Nephrology Progress Note ---
Date of Service November 01, 2023 Assessment & Plan (1) End stage renal disease: (2) Diabetes type 2, uncontrolled: (3) Anemia: (4) Secondary hyperparathyroidism of renal origin: (5) Hypertension: Plan ESKD secondary to diabetic nephropathy, admitted to the hospital with gener alized weakness and hypoglycemia. Noted further worsening of kidney function, creatinine was above 5 with BUN 92 and started on HD on 10/23/23 via d Rt arm AV fistula placed on 04/12/2023 and had transposition on 08/08/2023. [facility] Bin has been living by himself with his caregiver as he has some intellectual disability. His sisters has been involved in his care. But Bin and his family now feels it would be better for him to live in a long-term care facility where he can get 24 hours care. [facility], case management working to find the right place for him. Volume status improved, blood pressure well-controlled. --Dialysis today and then continue Monday, , Monday dialysis, waiting on long-term care facility placement and outpatient dialysis set up --right arm nephrology precaution, dose medications for EGFR less than 10. --continue on calcitriol 0.25 mcg daily --on Renvela 1 tab 3 times a day with meals, will avoid Velphoro in future as he did not tolerate well. --Epogen with dialysis --Continue on Nephrocaps daily. Admission and Anticipated Discharge Date Admission Date: October 17, 2023 Johanna Steward was seen and evaluated this morning. He has been otherwise doing well, denied any symptoms or concerns. Blood pressure improved, volume status, electrolyte acceptable. Waiting for long-term care placement Review of Systems Review of Systems: Detailed review of system was otherwise unremarkable. Physical Exam Constitutional: no acute distress Respiratory: normal respiratory effort, lungs clear to auscultation Cardiovascular: Rate/Rhythm: regular rate and regular rhythm Heart Sounds: normal S1 and normal S2 Extremities: + AV fistula (Rt BC AVF with thrill and bruit, healed scar) Neurologic: no focal motor deficits Psychiatric: A+Ox3, euthymic affect Results & Data Vital Signs (Past 12 Hours) Vital Signs Temp Pulse Resp BP Pulse Ox O2 Del Method 11/01/23 07:14 36.9 C 90 18 107/57 L 97 Room Air PG Care Time/CCT Total # of Minutes Spent Total Time Spent with Patient: Total time spent is greater than 50% in coordination of care (as documented) at patient's floor/unit and/or counseling patient: Coding Level of Care Code 02813 SUB INP/OBS CARE 2/35MIN Diagnoses End stage renal disease N18.6 Diabetes type 2, uncontrolled E11.65 Anemia D64.9 Secondary hyperparathyroidism of renal origin N25.81 Hypertension I10
--- NOTE | 2023-11-01 12:38 | Hospitalist Progress Note ---
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 initiated hemodialysis this admission #Presented with KIRK on CKD-5 not on dialysis. 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 Progressed to ESRD and initiated hemodialysis this admission hemodialysis initiated this admission first runs 10/22, 10/23, 10/24 - tolerating wel l. Continue 3x/wk. Lasix resumed 10/31 40mg PO daily documentation billing clerk consulting - continue calcitriol - continue Renvela and Nephrocaps, Lasix 40 Mg daily access: RUE AVF, outpatient documentation billing clerk: Dr. Alejandro awaiting appropriate disposition and outpatient dialysis appointment Also with anemia of CKD - epogen and PO Fe per nephrology (2) Hypoglycemia due to type 2 diabetes mellitus: Plan: Jardiance has been discontinued. Does have CGM at home, presented with hypoglycemia (reported down to 29 at home) - continue basal bolus insulin -10/30 increase to 14 units of glargine plus Premeal aspart (3) Leukocytosis: Plan: Unclear source initially up to 20,000 stress response related to vomiting, however mild leukocytosis persists but improving - CXR/procal/UA/COVID/flu/rsv negative - possible he had some aspiration pneumonitis at the time of admission related to his vomiting and inflammation is taking some time to resolve Remains asymptomatic, no fevers, hypoxia or focal symptoms. Peripheral smear Path: no infectious signs, cause of leukocytosis left for clinical correlation. (4) End stage renal disease: Plan: Started on 3x/week dialysis this admission as above (5) Cognitive disorder: Plan: Pt having increasing difficulty caring for himself Has caregivers in during the day but alone overnight POAs are sisters and they are interested in buttermilk drier operator placement for him at this time Plan is long-term placement, CM following Plan Chronic stable medical problems: * anxiety - continue buspar * BPH - continue flomax * HTN - continue amlodipine, control improved with serial HD Code status: full code DVT prophylaxis: heparin SQ Disposition: Plan is for placement, He will need to establish outpatient dialysis chair prior to discharge. Please call sisters with updates: Ban ; Renay Admission and Anticipated Discharge Date Admission Date: October 17, 2023 Supervising Physician Co-Signing Physician Notes MANISHA Supervision Note: I did not personally see or examine the patient today, but I verified all benitez points of MANISHA Richards's assessment and plan with the following exceptions/additions: None Subjective patient seen sitting on the edge of the bed prior to dialysis lidocaine patch helped some worried about low blood sugar but reassured that being in a facility will help he keep better track of those things no other acute complaints Review of Systems Review of Systems: All systems reviewed & are unremarkable except as noted in Subjective Physical Exam Physical Exam: General: NAD, VS as above, sitting up on the side of bed Resp: normal respiratory effort, lungs clear to auscultation CV: RRR, no murmur, Extremities: Moves all extremities, no edema Neuro: A&O x3, Results & Data Results & Data Vital Signs (Past 12 Hours) Vital Signs Temp Pulse Resp BP Pulse Ox O2 Del Method 11/01/23 07:14 36.9 C 90 18 107/57 L 97 Room Air Laboratory Results POC glucose reviewed, cbc and renal panel reviewed PG Care Time/CCT Total # of Minutes Spent Total Time Spent with Patient: Total time spent is greater than 50% in coordination of care (as documented) at patient's floor/unit and/or counseling patient: Coding Level of Care Code 67237 SUB INP/OBS CARE 3/50MIN Diagnoses Acute kidney injury superimposed on stage 5 chronic kidney disease, not on chronic dialysis N17.9; N18.5 Hypoglycemia due to type 2 diabetes mellitus E11.649 Leukocytosis D72.829 End stage renal disease N18.6 Cognitive disorder F09
[2023-11-01] MEDS: FUROSEMIDE 40 MG TAB PO SCH (15:14)
--- NOTE | 2023-11-02 11:27 | Nephrology Progress Note ---
Date of Service November 02, 2023 Assessment & Plan (1) End stage renal disease: (2) Diabetes type 2, uncontrolled: (3) Anemia: (4) Secondary hyperparathyroidism of renal origin: (5) Hypertension: Plan ESKD secondary to diabetic nephropathy, admitted to the hospital with gener alized weakness and hypoglycemia. Noted further worsening of kidney function, creatinine was above 5 with BUN 92 and started on HD on 10/23/23 via d Rt arm AV fistula placed on 04/12/2023 and had transposition on 08/08/2023. [facility] Bin has been living by himself with his caregiver as he has some intellectual disability. His sisters has been involved in his care. But Bin and his family now feels it would be better for him to live in a long-term care facility where he can get 24 hours care. Waiting on halfway, case management working to find the right place for him. Volume status improved, blood pressure well-controlled. Had dialysis yesterday. --continue Monday, , Monday dialysis, waiting on long-term care facility placement and outpatient dialysis set up --right arm nephrology precaution, dose medications for EGFR less than 10. --continue on calcitriol 0.25 mcg daily --on Renvela 1 tab 3 times a day with meals, will avoid Velphoro in future as he did not tolerate well. --Epogen with dialysis --Continue on Nephrocaps daily. Admission and Anticipated Discharge Date Admission Date: October 17, 2023 Johanna Steward was seen and evaluated this morning. He was resting in bed, has been otherwise doing well, denied any symptoms or concerns. Blood pressure improved, volume status, electrolyte acceptable. Waiting for long-term care placement Review of Systems Review of Systems: Detailed review of system was otherwise unremarkable. Physical Exam Constitutional: no acute distress Respiratory: normal respiratory effort, lungs clear to auscultation Cardiovascular: Rate/Rhythm: regular rate and regular rhythm Heart Sounds: normal S1 and normal S2 Extremities: + AV fistula (Rt BC AVF with thrill and bruit, healed scar) Neurologic: no focal motor deficits Psychiatric: A+Ox3, euthymic affect Results & Data Vital Signs (Past 12 Hours) Vital Signs Temp Pulse Resp BP Pulse Ox O2 Del Method 11/02/23 07:01 36.8 C 80 18 141/72 H 96 Room Air PG Care Time/CCT Total # of Minutes Spent Total Time Spent with Patient: Total time spent is greater than 50% in coordination of care (as documented) at patient's floor/unit and/or counseling patient: Coding Level of Care Code 02708 SUB INP/OBS CARE 1/25MIN Diagnoses End stage renal disease N18.6 Diabetes type 2, uncontrolled E11.65 Anemia D64.9 Secondary hyperparathyroidism of renal origin N25.81 Hypertension I10
--- NOTE | 2023-11-02 13:41 | Hospitalist Progress Note ---
Date of Service November 02, 2023 Assessment & Plan (1) Acute kidney injury superimposed on stage 5 chronic kidney disease, not on chronic dialysis: Plan: A 62 yo male PMHx intellectual disability, CKD-V not yet on POLISHER DIAL at time of admission, T2DM on insulin, ISAAK not on CPAP, secondary hyperparathyroidism, admitted after an episode of hypoglycemia as well as nausea and vomiting. initiated hemodialysis this admission #Presented with KIRK on CKD-5 not on dialysis. 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 Progressed to ESRD and initiated hemodialysis this admission hemodialysis initiated this admission first runs 10/22, 10/23, 10/24 - tolerating wel l. Continue 3x/wk. Lasix resumed 10/31 40mg PO daily certified histologic technician consulting - continue calcitriol - continue Renvela and Nephrocaps, Lasix 40 Mg daily access: SUKHDEV ABDI, outpatient certified histologic technician: Dr. Alejandro awaiting appropriate disposition and outpatient dialysis appointment Also with anemia of CKD - epogen and PO Fe per nephrology (2) Hypoglycemia due to type 2 diabetes mellitus: Plan: Jardiance has been discontinued. 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 If still here next week could reach out to Sendy Rubio to see if she is avaiable (3) Leukocytosis: Plan: Unclear source initially up to 20,000 stress response related to vomiting, however mild leukocytosis persists but improving - CXR/procal/UA/COVID/flu/rsv negative - possible he had some aspiration pneumonitis at the time of admission related to his vomiting and inflammation is taking some time to resolve Remains asymptomatic, no fevers, hypoxia or focal symptoms. Peripheral smear Path: no infectious signs, cause of leukocytosis left for clinical correlation. (4) End stage renal disease: Plan: Started on 3x/week dialysis this admission as above (5) Cognitive disorder: Plan: Pt having increasing difficulty caring for himself Has caregivers in during the day but alone overnight POAs are sisters and they are interested in terminal operator placement for him at this time Plan is terminal operator placement, CM following Plan Chronic stable medical problems: * anxiety - continue buspar * BPH - continue flomax * HTN - continue amlodipine, control improved with serial HD Code status: full code DVT prophylaxis: heparin SQ Disposition: Plan is for placement, He will need to establish outpatient dialysis chair prior to discharge. Please call sisters with updates: Ban ; Renay Admission and Anticipated Discharge Date Admission Date: October 17, 2023 Supervising Physician Co-Signing Physician Notes PA Supervision Note: I did not personally see or examine the patient today, but I verified all benitez points of MANISHA Richards's assessment and plan with the following exceptions/additions: None Subjective patient resting in bed, pain at the dialysis fistula site, but ice helps last BM yesterday Review of Systems Review of Systems: All systems reviewed & are unremarkable except as noted in Subjective Physical Exam Physical Exam: General: NAD, VS as above, lying in bed Resp: normal respiratory effort, lungs clear to auscultation CV: RRR, no murmur, Extremities: Moves all extremities, dialysis fistula right arm, bruising around Neuro: A&O x3, Results & Data Results & Data Vital Signs (Past 12 Hours) Vital Signs Temp Pulse Resp BP Pulse Ox O2 Del Method 11/02/23 07:01 36.8 C 80 18 141/72 H 96 Room Air Laboratory Results POC glucose reviewed PG Care Time/CCT Total # of Minutes Spent Total Time Spent with Patient: Total time spent is greater than 50% in coordination of care (as documented) at patient's floor/unit and/or counseling patient: Coding Level of Care Code 93143 SUB INP/OBS CARE 2/35MIN Diagnoses Acute kidney injury superimposed on stage 5 chronic kidney disease, not on chronic dialysis N17.9; N18.5 Hypoglycemia due to type 2 diabetes mellitus E11.649 Leukocytosis D72.829 End stage renal disease N18.6 Cognitive disorder F09
[2023-11-02] MEDS: LANTUS PER UNIT CHARGE SQ SCH (20:44)
--- NOTE | 2023-11-03 12:32 | Nephrology Progress Note ---
Date of Service November 03, 2023 Assessment & Plan (1) End stage renal disease: (2) Diabetes type 2, uncontrolled: (3) Anemia: (4) Secondary hyperparathyroidism of renal origin: (5) Hypertension: Plan ESKD secondary to diabetic nephropathy, admitted to the hospital with gener alized weakness and hypoglycemia. Noted further worsening of kidney function, creatinine was above 5 with BUN 92 and started on HD on 10/23/23 via d Rt arm AV fistula placed on 04/12/2023 and had transposition on 08/08/2023. [facility]. Bin has been living by himself with his caregiver as he has some intellectual disability. His sisters has been involved in his care. But Bin and his family now feels it would be better for him to live in a long-term care facility where he can get 24 hours care. Waiting on care home, case management working to find the right place for him. Volume status improved, blood pressure well-controlled. Still waiting on long- term care facility placement and outpatient dialysis set up. --Dialysis today, okay to continue on low blood flow --right arm nephrology precaution, dose medications for EGFR less than 10. --continue on calcitriol 0.25 mcg daily --on Renvela 1 tab 3 times a day with meals, will avoid Velphoro in future as he did not tolerate well. --Epogen with dialysis --Continue on Nephrocaps daily. Admission and Anticipated Discharge Date Admission Date: October 17, 2023 Subjective Bin was seen during dialysis today. Tolerating dialysis well, blood pressure stable, tolerating 2 L of UF. AV fistula had small infiltration after last dialysis and today has been having high venous pressure and blood flow had to be lowered. Review of Systems Review of Systems: Detailed review of system was otherwise unremarkable. Physical Exam Constitutional: no acute distress Respiratory: normal respiratory effort, lungs clear to auscultation Cardiovascular: Rate/Rhythm: regular rate and regular rhythm Heart Sounds: normal S1 and normal S2 Extremities: + AV fistula (Rt BC AVF with thrill and bruit, healed scar) Neurologic: no focal motor deficits Psychiatric: A+Ox3, euthymic affect Results & Data Vital Signs (Past 12 Hours) Vital Signs Temp Pulse Pulse Pulse Resp BP BP 11/03/23 11:00 80 115/64 11/03/23 10:30 82 117/63 11/03/23 10:00 83 137/65 11/03/23 09:37 85 155/69 H 11/03/23 09:23 36.7 C 82 11/03/23 08:13 36.9 C 85 18 140/72 Pulse Ox O2 Del Method 11/03/23 11:00 11/03/23 10:30 11/03/23 10:00 11/03/23 09:37 11/03/23 09:23 11/03/23 08:13 96 Room Air PG Care Time/CCT Total # of Minutes Spent Total Time Spent with Patient: Total time spent is greater than 50% in coordination of care (as documented) at patient's floor/unit and/or counseling patient: Coding Level of Care Code 53878 SUB INP/OBS CARE 2/35MIN Diagnoses End stage renal disease N18.6 Diabetes type 2, uncontrolled E11.65 Anemia D64.9 Secondary hyperparathyroidism of renal origin N25.81 Hypertension I10
--- NOTE | 2023-11-03 14:17 | Hospitalist Progress Note ---
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 initiated hemodialysis this admission #Presented with KIRK on CKD-5 not on dialysis. 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 Progressed to ESRD and initiated hemodialysis this admission hemodialysis initiated this admission first runs 10/22, 10/23, 10/24 - tolerating wel l. Continue 3x/wk. Lasix resumed 10/31 40mg PO daily rn maternity consulting - continue calcitriol - continue Renvela and Nephrocaps, Lasix 40 Mg daily access: SUKHDEV ABDI, outpatient rn maternity: Dr. Alejandro awaiting appropriate disposition and outpatient dialysis appointment Also with anemia of CKD - epogen and PO Fe per nephrology (2) Hypoglycemia due to type 2 diabetes mellitus: Plan: Jardiance has been discontinued. 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 If still here next week could reach out to Sendy Rubio to see if she is avaiable (3) Leukocytosis: Plan: Unclear source initially up to 20,000 stress response related to vomiting, however mild leukocytosis persists but improving - CXR/procal/UA/COVID/flu/rsv negative - possible he had some aspiration pneumonitis at the time of admission related to his vomiting and inflammation is taking some time to resolve Remains asymptomatic, no fevers, hypoxia or focal symptoms. Peripheral smear Path: no infectious signs, cause of leukocytosis left for clinical correlation. (4) End stage renal disease: Plan: Started on 3x/week dialysis this admission as above (5) Cognitive disorder: Plan: Pt having increasing difficulty caring for himself Has caregivers in during the day but alone overnight POAs are sisters and they are interested in fdc placement for him at this time Plan is terminal operations manager placement, CM following Plan Chronic stable medical problems: * anxiety - continue buspar * BPH - continue flomax * HTN - continue amlodipine, control improved with serial HD Code status: full code DVT prophylaxis: heparin SQ Disposition: Plan is for placement, He will need to establish outpatient dialysis chair prior to discharge. Please call sisters with updates: Ban ; Renay Admission and Anticipated Discharge Date Admission Date: October 17, 2023 Supervising Physician Co-Signing Physician Notes PA Supervision Note: I did not personally see or examine the patient today, but I verified all benitez points of MANISHA Richards's assessment and plan with the following exceptions/additions: None Subjective patient seen during dialysis. Getting irritable having to lay in the bed but otherwise no acute complaints Is understanding about the current podiatry situation. Review of Systems Review of Systems: All systems reviewed & are unremarkable except as noted in Subjective Physical Exam Physical Exam: General: NAD, VS as above, lying in bed During dialysis Resp: normal respiratory effort, lungs clear to auscultation CV: RRR, no murmur, Extremities: Moves all extremities, dialysis fistula right arm Neuro: A&O x3, Results & Data Results & Data Vital Signs (Past 12 Hours) Vital Signs Temp Pulse Pulse Pulse Pulse Resp BP 11/03/23 14:11 37.0 C 85 18 11/03/23 12:30 78 114/60 11/03/23 12:00 80 132/66 11/03/23 11:30 81 111/63 11/03/23 11:00 80 115/64 11/03/23 10:30 82 117/63 11/03/23 10:00 83 137/65 11/03/23 09:37 85 155/69 H 11/03/23 09:23 36.7 C 82 11/03/23 08:13 36.9 C 85 18 BP Pulse Ox O2 Del Method 11/03/23 14:11 146/76 H 100 Room Air 11/03/23 12:30 11/03/23 12:00 11/03/23 11:30 11/03/23 11:00 11/03/23 10:30 11/03/23 10:00 11/03/23 09:37 11/03/23 09:23 11/03/23 08:13 140/72 96 Room Air Laboratory Results [id number] glucose reviewed PG Care Time/CCT Total # of Minutes Spent Total Time Spent with Patient: Total time spent is greater than 50% in coordination of care (as documented) at patient's floor/unit and/or counseling patient: Coding Level of Care Code 95177 SUB INP/OBS CARE 2/35MIN Diagnoses Acute kidney injury superimposed on stage 5 chronic kidney disease, not on chronic dialysis N17.9; N18.5 Hypoglycemia due to type 2 diabetes mellitus E11.649 Leukocytosis D72.829 End stage renal disease N18.6 Cognitive disorder F09
[2023-11-04 07:26] LABS: Hematocrit (blood only) 27.9 % (42.0-52.0); Hemoglobin 9.4 g/dl (14.0-18.0); Mean Corpuscular Hemoglobin 31.2 pg (25.0-34.0); Mean Corpuscular Hgb Conc 33.7 g/dL (32.0-36.0); Mean Corpuscular Volume 92.7 fL (80.0-100.0); Platelet Count 158 K/uL (130-400); RDW Coefficient of Variation 13.3 % (11.5-14.5); RDW Standard Deviation 42.3 fL (36.4-46.3); Red Blood Count 3.01 M/uL (4.70-6.10); White Blood Count 9.69 K/ul (4.8-10.8)
[2023-11-04 08:10] LABS: Albumin Level 3.7 gm/dl (3.4-5.0); BUN Creatinine Ratio 9.9 (10-20); Calcium 8.8 mg/dl (8.6-10.3); Creatinine Clr Calc Pharmacy 18.1 ml/min; Est GFR (African American) 14.1 ml/min; Est GFR (Non-African American) 12.2 ml/min; Potassium 3.5 mmol/L (3.5-5.1)
--- NOTE | 2023-11-04 08:53 | Hospitalist Progress Note ---
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 initiated hemodialysis this admission #Presented with KIRK on CKD-5 not on dialysis. 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 Progressed to ESRD and initiated hemodialysis this admission hemodialysis initiated this admission first runs 10/22, 10/23, 10/24 - tolerating well. BUN/Cr reduced to 42/3.56 continue calcitriol administrative representative consulting - reviewed recs and note access: SUKHDEV ABDI, outpatient administrative representative: Dr. Alejandro awaiting appropriate disposition and outpatient dialysis appointment Continue 3 times a week dialysis. Awaiting SNF placement that accommodate outpatient dialysis #T2DM continue basal bolus insulin - cont 12 units of glargine plus Premeal aspart - at goal 10/28 does have CGM at home, presented with severe hypoglycemia #Leukocytosis Unclear source initially up to 20,000 stress response related to vomiting. Now resolved with WBC 9.69. ED workup negative. Remains asymptomatic, no fevers, hypoxia or focal symptoms. Peripheral smear 10/29/2023 unremarkable #Intellectual disability Pt having increasing difficulty caring for himself Has caregivers in during the day but alone overnight POAs are sisters and they are interested in marking machine tender placement for him at this time Referral made and placement is pending #Anxiety buspar - stable no issues #BPH flomax #HTN continue amlodipine and losartan, control improved with serial HD #Anemia of CKD - stable, management per administrative representative -on oral iron QOD Code status: full code DVT prophylaxis: heparin SQ Disposition: Plan is for placement, He will need to establish outpatient dialysis chair prior to discharge. Please call sisters with updates: Ban ; Renay Admission and Anticipated Discharge Date Admission Date: October 17, 2023 Supervising Physician Co-Signing Physician Notes PA Supervision Note: I did not personally see or examine the patient today, but I verified all benitez points of MANISHA Villar's assessment and plan with the following exceptions/additions: None Subjective Attending: Dr. Toro This is a 62-year-old male admitted 10/17/2023 for generalized weakness, hypoglycemia as well as nausea and vomiting. Patient has a history of type 2 diabetes mellitus on insulin but had not yet started on dialysis. He was started on hemodialysis 10/23/2023 with right arm AV fistula. Patient has an intellectual disability and lives by himself with a caregiver. He has sisters who are very involved in his care. Family feels is best for the patient to live in a long-term care facility where he can get 24-hour care. Case management is currently working on placement with outpatient dialysis set up. Patient reports no acute issues. Does endorse dry skin and itching of back. Examination revealed no abnormalities. No other acute complaints Review of Systems 2 Review of Systems: A total of 10 systems was reviewed and is negative other than as listed in the HPI Physical Exam 2 Physical Exam: GENERAL : No acute distress EYES: No icterus, gaze conjugate NOSE: No evidence of epistaxis MOUTH: No lesions or candidiasis NECK: Supple LUNGS: CTA B/L, no wheezes, rales or rhonchi HEART: Regular, rate controlled ABDOMEN: Soft, NT, ND, BS Present EXTREMITIES: No LE edema, pedal pulses intact NEURO: A&OX3 Results & Data Results & Data Vital Signs (Past 12 Hours) Vital Signs Temp Pulse Resp BP Pulse Ox O2 Del Method 11/04/23 07:46 36.8 C 76 16 133/71 97 Room Air 11/03/23 21:30 36.9 C 86 19 138/73 99 Room Air 11/03/23 21:00 Room Air Laboratory Results 11/04/23 06:58 11/04/23 06:58 PG Care Time/CCT Total # of Minutes Spent Total Time Spent with Patient: Total time spent is greater than 50% in coordination of care (as documented) at patient's floor/unit and/or counseling patient:25 minutes Coding Level of Care Code 35680 SUB INP/OBS CARE 1/25MIN Diagnoses Hypoglycemia due to type 2 diabetes mellitus E11.649 Acute kidney injury superimposed on stage 5 chronic kidney disease, not on chronic dialysis N17.9; N18.5 End stage renal disease N18.6 Cognitive disorder F09 Anxiety F41.9 Time Spent (min) 25
--- NOTE | 2023-11-04 11:26 | Nephrology Progress Note ---
Date of Service November 04, 2023 Assessment & Plan (1) End stage renal disease: Plan: ESRD attributed to DKD. Started HD 10/23/23 via Rt arm AV fistula (placed 04/12/2023 with transposition in July). Maintained on HD MWF under the care of Dr. Alejandro. Completed treatment yesterday with adequate UF and clearance. Medications are appropriate for IHD. Next treatment planned for Monday. Continue Renvela 1 tab QAC. Renal diet. (2) Diabetes type 2, uncontrolled: (3) Anemia: Plan: Chronic, stable. Epogen with HD. (4) Secondary hyperparathyroidism of renal origin: Plan: Continue calcitriol 0.25 QAM. Renvela 1 tab QAC. Low phosphorus diet. (5) Hypertension: Plan: Volume status controlled. BP acceptable. Continue amlodipine as Rx. Losartan may be restarted as needed. Admission and Anticipated Discharge Date Admission Date: October 17, 2023 Subjective No acute events overnight. Bin tolerated HD well yesterday. No complications with treatment. He feels well overall. Review of Systems Review of Systems: All systems reviewed & are unremarkable except as noted in HPI & below Physical Exam Constitutional: well developed; no acute distress Eyes: no scleral abnormality and no corneal abnormality ENMT: Mouth: no oral mucosal abnormality and oral mucous membranes not dry Neck: normal visual inspection and trachea midline Respiratory: normal respiratory effort Auscultation: lungs clear to auscultation bilaterally Cardiovascular: Rate/Rhythm: regular rate Heart Sounds: normal S1 and normal S2 Extremities: + edema and + AV fistula Musculoskeletal: Extremities: no cyanosis and no clubbing Skin: normal turgor; no lesions Neurologic: Motor/Sensory: no tremor and no asterixis Psychiatric: Orientation: alert and oriented x 3 Results & Data Vital Signs (Past 12 Hours) Vital Signs Temp Pulse Resp BP Pulse Ox O2 Del Method 11/04/23 07:46 36.8 C 76 16 133/71 97 Room Air Laboratory Results Laboratory Results - last 24 hr 11/03/23 11/03/23 11/03/23 14:04 17:06 20:33 WBC RBC Hgb Hct MCV MCH MCHC RDW Std Deviation RDW Coeff of Vinay Plt Count MPV Sodium Potassium Chloride Carbon Dioxide Anion Gap BUN Creatinine Est Cr Clr Drug Dosing Est GFR ( Amer) Est GFR (Non-Af Amer) BUN/Creatinine Ratio Glucose POC Glucose 108 H 170 H 123 H Calcium Phosphorus Albumin 11/04/23 11/04/23 06:58 07:45 WBC 9.69 RBC 3.01 L Hgb 9.4 L Hct 27.9 L MCV 92.7 MCH 31.2 MCHC 33.7 RDW Std Deviation 42.3 RDW Coeff of Vinay 13.3 Plt Count 158 MPV 9.0 L Sodium 133 L Potassium 3.5 Chloride 95 L Carbon Dioxide 27 Anion Gap 11 BUN 47 H Creatinine 4.73 H* Est Cr Clr Drug Dosing 18.1 Est GFR ( Amer) 14.1 Est GFR (Non-Af Amer) 12.2 BUN/Creatinine Ratio 9.9 L Glucose 170 H POC Glucose 168 H Calcium 8.8 Phosphorus 4.0 Albumin 3.7 PG Care Time/CCT Total # of Minutes Spent Total Time Spent with Patient: Total time spent is greater than 50% in coordination of care (as documented) at patient's floor/unit and/or counseling patient: Coding Level of Care Code 38610 SUB INP/OBS CARE 3/50MIN Diagnoses End stage renal disease N18.6 Diabetes type 2, uncontrolled E11.65 Anemia D64.9 Secondary hyperparathyroidism of renal origin N25.81 Hypertension I10
--- NOTE | 2023-11-05 13:21 | Nephrology Progress Note ---
Date of Service November 05, 2023 Assessment & Plan (1) End stage renal disease: Plan: ESRD attributed to DKD. Started HD 10/23/23 via Rt arm AV fistula (placed 04/12/2023 with transposition in July). Maintained on HD MWF. Primary recruiting and selection consultant is Dr. Alejandro. Volume status controlled. Medications are appropriate for IHD. Next treatment planned for tomorrow. Orders for labs tomorrow and HD entered into the EHR. Continue Renvela 1 tab QAC. Renal diet. (2) Diabetes type 2, uncontrolled: (3) Anemia: Plan: Chronic, stable. Epogen with HD. (4) Secondary hyperparathyroidism of renal origin: Plan: Continue calcitriol 0.25 QAM. Renvela 1 tab QAC. Low phosphorus diet. (5) Hypertension: Plan: Volume status controlled. BP acceptable. Continue amlodipine as Rx. Losartan may be restarted as needed. Admission and Anticipated Discharge Date Admission Date: October 17, 2023 Subjective No acute events overnight. Out of bed walking in room/to bathroom this AM. No complaints. Review of Systems Review of Systems: All systems reviewed & are unremarkable except as noted in HPI & below Physical Exam Constitutional: well developed; no acute distress Eyes: no scleral abnormality and no corneal abnormality ENMT: Mouth: no oral mucosal abnormality and oral mucous membranes not dry Neck: normal visual inspection and trachea midline Respiratory: normal respiratory effort Auscultation: lungs clear to auscultation bilaterally Cardiovascular: Rate/Rhythm: regular rate Heart Sounds: normal S1 and normal S2 Extremities: normal capillary refill, + edema and + AV fistula Musculoskeletal: Extremities: no cyanosis and no clubbing Skin: normal turgor; no lesions Neurologic: Motor/Sensory: no tremor and no asterixis Psychiatric: Orientation: alert and oriented x 3 Results & Data Vital Signs (Past 12 Hours) Vital Signs Temp Pulse Resp BP Pulse Ox O2 Del Method 11/05/23 07:31 36.9 C 69 16 123/71 96 Room Air Laboratory Results Laboratory Results - last 24 hr 11/04/23 11/04/23 11/05/23 16:48 20:32 07:34 POC Glucose 113 H 165 H 128 H 11/05/23 11:40 POC Glucose 159 H PG Care Time/CCT Total # of Minutes Spent Total Time Spent with Patient: Total time spent is greater than 50% in coordination of care (as documented) at patient's floor/unit and/or counseling patient: Coding Level of Care Code 10353 SUB INP/OBS CARE MIN Diagnoses End stage renal disease N18.6 Diabetes type 2, uncontrolled E11.65 Anemia D64.9 Secondary hyperparathyroidism of renal origin N25.81 Hypertension I10
--- NOTE | 2023-11-05 17:23 | Hospitalist Progress Note ---
Date of Service November 05, 2023 Assessment & Plan (1) Hypoglycemia due to type 2 diabetes mellitus: (2) Acute kidney injury superimposed on stage 5 chronic kidney disease, not on chronic dialysis: (3) End stage renal disease: (4) Cognitive disorder: (5) Anxiety: Plan A 62 yo male PMHx intellectual disability, CKD-V not yet on SINGER BACK TENDER at time of admission, T2DM on insulin, ISAAK not on CPAP, secondary hyperparathyroidism, admitted after an episode of hypoglycemia as well as nausea and vomiting. initiated hemodialysis this admission #Presented with KIRK on CKD-5 not on dialysis. 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 Progressed to ESRD and initiated hemodialysis this admission hemodialysis initiated this admission first runs 10/22, 10/23, 10/24 - tolerating well. BUN/Cr reduced to 42/3.56 continue calcitriol payment processor consulting - reviewed recs and note access: SUKHDEV ABDI, outpatient payment processor: Dr. Alejandro awaiting appropriate disposition and outpatient dialysis appointment Continue 3 times a week dialysis. Awaiting SNF placement that accommodate outpatient dialysis #T2DM continue basal bolus insulin - cont 12 units of glargine plus Premeal aspart - at goal 10/28 does have CGM at home, presented with severe hypoglycemia #Leukocytosis Now resolved with WBC 9.69. Unclear source initially up to 20,000 stress response related to vomiting.ED workup negative. Remains asymptomatic, no fevers, hypoxia or focal symptoms. Peripheral smear 10/29/2023 unremarkable #Intellectual disability Pt having increasing difficulty caring for himself Has caregivers in during the day but alone overnight POAs are sisters and they are interested in long filler cigar roller machine placement for him at this time Referral made and placement is pending #Anxiety buspar - stable no issues #BPH flomax #HTN continue amlodipine and losartan, control improved with serial HD #Anemia of CKD - stable, management per payment processor -on oral iron QOD -Epogen with hemodialysis Code status: full code DVT prophylaxis: heparin SQ Disposition: Plan is for placement, He will need to establish outpatient dialysis chair prior to discharge. Please call sisters with updates: Ban ; Renay Admission and Anticipated Discharge Date Admission Date: October 17, 2023 Supervising Physician Co-Signing Physician Notes PA Supervision Note: I did not personally see or examine the patient today, but I verified all benitez points of MANISHA Villar's assessment and plan with the following exceptions/additions: None Subjective Attending: Dr. Toro No new issues today. Awaiting placement No acute events overnight. Out of bed walking in room/to bathroom this AM. No complaints. Showered yesterday. Nurses noted that he had no difficulty Back not as itchy today. Review of Systems 2 Review of Systems: A total of 10 systems was reviewed and is negative other than as listed in the HPI Physical Exam 2 Physical Exam: GENERAL : No acute distress EYES: No icterus, gaze conjugate NOSE: No evidence of epistaxis MOUTH: No lesions or candidiasis NECK: Supple LUNGS: CTA B/L, no wheezes, rales or rhonchi HEART: Regular, rate controlled ABDOMEN: Soft, NT, ND, BS Present EXTREMITIES: No LE edema, pedal pulses intact. Good bruit at right AV fistula NEURO: A&OX3 Results & Data Results & Data Vital Signs (Past 12 Hours) Vital Signs Temp Pulse Resp BP Pulse Ox O2 Del Method 11/05/23 14:34 36.7 C 80 16 127/70 98 Room Air 11/05/23 07:31 36.9 C 69 16 123/71 96 Room Air Laboratory Results 11/04/23 06:58 11/04/23 06:58 PG Care Time/CCT Total # of Minutes Spent Total Time Spent with Patient: Total time spent is greater than 50% in coordination of care (as documented) at patient's floor/unit and/or counseling patient: Coding Level of Care Code 57830 SUB INP/OBS CARE 1/25MIN Diagnoses Hypoglycemia due to type 2 diabetes mellitus E11.649 Acute kidney injury superimposed on stage 5 chronic kidney disease, not on chronic dialysis N17.9; N18.5 End stage renal disease N18.6 Cognitive disorder F09 Anxiety F41.9 Time Spent (min) 25
[2023-11-06 06:21] LABS: Hematocrit (blood only) 28.3 % (42.0-52.0); Hemoglobin 9.4 g/dl (14.0-18.0)
[2023-11-06 06:48] LABS: Albumin Level 3.8 gm/dl (3.4-5.0); BUN Creatinine Ratio 14.5 (10-20); Calcium 8.8 mg/dl (8.6-10.3); Creatinine Clr Calc Pharmacy 14.3 ml/min; Est GFR (African American) 10.6 ml/min; Est GFR (Non-African American) 9.2 ml/min; Phosphorus 5.3 mg/dl (2.5-4.9); Potassium 3.6 mmol/L (3.5-5.1)
--- NOTE | 2023-11-06 10:04 | Nephrology Progress Note ---
Date of Service November 06, 2023 Assessment & Plan (1) End stage renal disease: Plan: ESRD attributed to DKD. Started HD 10/23/23 via Rt arm AV fistula (placed 04/12/2023 with transposition in July). Maintained on HD MWF. Primary nutrition tech is Dr. Alejandro. Orders for HD today entered into the EHR and reviewed with biomass production manager. Tolerating HD well. Qb at goal. Medications are appropriate for IHD. Continue Renvela 1 tab QAC. Renal diet. (2) Diabetes type 2, uncontrolled: (3) Anemia: Plan: Chronic, stable. Epogen 60019 units today with HD. (4) Secondary hyperparathyroidism of renal origin: Plan: Continue calcitriol 0.25 QAM. Renvela 1 tab QAC. Low phosphorus diet. (5) Hypertension: Plan: Volume status controlled. BP acceptable. Continue amlodipine as Rx. Losartan may be restarted as needed. Admission and Anticipated Discharge Date Admission Date: October 17, 2023 Subjective No acute events overnight. Bin was seen and evaluated during HD this morning. He is tolerating dialysis well. No complications with treatmetn. Review of Systems Review of Systems: All systems reviewed & are unremarkable except as noted in HPI & below Physical Exam Constitutional: well developed; no acute distress Eyes: no scleral abnormality and no corneal abnormality ENMT: Mouth: no oral mucosal abnormality and oral mucous membranes not dry Neck: normal visual inspection and trachea midline Respiratory: normal respiratory effort Auscultation: lungs clear to auscultation bilaterally Cardiovascular: Rate/Rhythm: regular rate Heart Sounds: normal S1 and normal S2 Extremities: normal capillary refill, + edema and + AV fistula Musculoskeletal: Extremities: no cyanosis and no clubbing Skin: normal turgor; no lesions Neurologic: Motor/Sensory: no tremor and no asterixis Psychiatric: Orientation: alert and oriented x 3 Results & Data Vital Signs (Past 12 Hours) Vital Signs Temp Pulse Resp BP Pulse Ox O2 Del Method 11/06/23 07:19 36.7 C 85 16 126/66 96 Room Air Laboratory Results Laboratory Results - last 24 hr 11/05/23 11/05/23 11/05/23 11:40 16:33 20:41 Hgb Hct Sodium Potassium Chloride Carbon Dioxide Anion Gap BUN Creatinine Est Cr Clr Drug Dosing Est GFR ( Amer) Est GFR (Non-Af Amer) BUN/Creatinine Ratio Glucose POC Glucose 159 H 152 H 187 H Calcium Phosphorus Albumin 11/06/23 11/06/23 06:00 07:21 Hgb 9.4 L Hct 28.3 L Sodium 133 L Potassium 3.6 Chloride 95 L Carbon Dioxide 26 Anion Gap 12 H BUN 87 H D Creatinine 5.98 H* D Est Cr Clr Drug Dosing 14.3 Est GFR ( Amer) 10.6 Est GFR (Non-Af Amer) 9.2 BUN/Creatinine Ratio 14.5 Glucose 166 H POC Glucose 177 H Calcium 8.8 Phosphorus 5.3 H Albumin 3.8 PG Care Time/CCT Total # of Minutes Spent Total Time Spent with Patient: Total time spent is greater than 50% in coordination of care (as documented) at patient's floor/unit and/or counseling patient: Coding Level of Care Code 41198 SUB INP/OBS CARE 3/50MIN Diagnoses End stage renal disease N18.6 Diabetes type 2, uncontrolled E11.65 Anemia D64.9 Secondary hyperparathyroidism of renal origin N25.81 Hypertension I10
[2023-11-06] MEDS: EPOETIN ALFA 20,000 UNITS/ML VIAL IV ONE (11:53)
--- NOTE | 2023-11-06 14:33 | Hospitalist Progress Note ---
Date of Service November 06, 2023 Assessment & Plan (1) Acute kidney injury superimposed on stage 5 chronic kidney disease, not on chronic dialysis: Plan: A 62 yo male PMHx intellectual disability, CKD-V not yet on LPN HOME HEALTH at time of admission, T2DM on insulin, ISAAK not on CPAP, secondary hyperparathyroidism, admitted after an episode of hypoglycemia as well as nausea and vomiting. Presented with KIRK on CKD-5 not on dialysis and progressed to ESRD with initiation of hemodialysis this admission. hemodialysis initiated this admission first runs 10/22, 10/23, 10/24 - tolerating well. BMP reviewed 11/05: creatinine 5.98, BUN 87 continue calcitriol pediatric physical therapist consulting - reviewed recs and note access: RUMary AVF, outpatient pediatric physical therapist: Dr. Alejandro Continue 3 times a week dialysis. Awaiting SNF placement that accommodate outpatient dialysis (2) End stage renal disease: Plan: see plan above (3) Hypoglycemia due to type 2 diabetes mellitus: Plan: continue basal bolus insulin - cont 12 units of glargine plus Premeal aspart - at goal does have CGM at home, presented with severe hypoglycemia (4) Leukocytosis: Plan: Now resolved with WBC 9.69. Unclear source initially up to 20,000 stress response related to vomiting.ED workup negative. Remains asymptomatic, no fevers, hypoxia or focal symptoms. Peripheral smear 10/29/2023 unremarkable Plan Chronic conditions: -Intellectual disability: difficulty caring for self at home. Has caregivers but alone overnight. POA's are interested in vermin exterminator placement which is pending -Anxiety: Buspar -BPH: Flomax -HTN: amlodipine, losartan -Anemia: PO iron, epogen with hemodialysis. Code status: full code DVT prophylaxis: heparin SQ Disposition: Plan is for placement, He will need to establish outpatient dialysis chair prior to discharge. Please call sisters with updates: Ban ; Renay Admission and Anticipated Discharge Date Admission Date: October 17, 2023 Subjective Patient seen and examined following his dialysis session today. He was complaining of fatigue. States his dialysis sessions usually make him tired afterwards. Aside from this he denied any additional complaints. He was eating lunch at time of my encounter. Physical Exam 2 Constitutional: WD/WN, vitals as above Eyes: PERRL, conjunctivae normal, anicteric sclerae Respiratory: normal respiratory effort, lungs clear to auscultation Cardiovascular: RRR, no murmur, no edema Skin: no rashes, warm and dry Psychiatric: A+Ox3, euthymic affect Results & Data Results & Data Vital Signs (Past 12 Hours) Vital Signs Temp Pulse Pulse Pulse Resp BP BP 11/06/23 13:41 36.9 C 90 18 148/68 H 11/06/23 13:01 83 125/70 11/06/23 13:00 68 123/66 11/06/23 12:30 81 135/68 11/06/23 12:00 79 138/67 11/06/23 11:30 79 128/65 11/06/23 11:00 78 122/70 11/06/23 10:30 78 132/67 11/06/23 10:00 76 124/66 11/06/23 09:31 77 148/70 H 11/06/23 09:07 36.6 C 76 11/06/23 07:19 36.7 C 85 16 126/66 Pulse Ox O2 Del Method 11/06/23 13:41 100 Room Air 11/06/23 13:01 11/06/23 13:00 11/06/23 12:30 11/06/23 12:00 11/06/23 11:30 11/06/23 11:00 11/06/23 10:30 11/06/23 10:00 11/06/23 09:31 11/06/23 09:07 11/06/23 07:19 96 Room Air Laboratory Results 11/06/23 06:00 11/06/23 06:00 PG Care Time/CCT Total # of Minutes Spent Total Time Spent with Patient: Total time spent is greater than 50% in coordination of care (as documented) at patient's floor/unit and/or counseling patient: Coding Level of Care Code 54287 SUB INP/OBS CARE 2/35MIN Diagnoses Acute kidney injury superimposed on stage 5 chronic kidney disease, not on chronic dialysis N17.9; N18.5 End stage renal disease N18.6 Hypoglycemia due to type 2 diabetes mellitus E11.649 Leukocytosis, unspecified type D72.829 Leukocytosis type: unspecified (4) Leukocytosis Leukocytosis type: unspecified Qualified Code(s): D72.829 - Elevated white blood cell count, unspecified
--- NOTE | 2023-11-07 10:03 | Nephrology Progress Note ---
Date of Service November 07, 2023 Assessment & Plan (1) End stage renal disease: Plan: ESRD attributed to DKD. Started HD 10/23/23 via Rt arm AV fistula (placed 04/12/2023 with transposition in July). Maintained on HD MWF. Primary entry specialist is Dr. Alejandro. Completed treatment yesterday with adequate UF and clearance. Next HD tomorrow. Medications are appropriate for IHD. Continue Renvela 1 tab QAC. Renal diet. (2) Diabetes type 2, uncontrolled: (3) Anemia: Plan: Chronic, stable. Epogen 33891 units today with HD. (4) Secondary hyperparathyroidism of renal origin: Plan: Continue calcitriol 0.25 QAM. Renvela 1 tab QAC. Low phosphorus diet. (5) Hypertension: Plan: Volume status controlled. BP acceptable. Continue amlodipine as Rx. Losartan may be restarted as needed. Admission and Anticipated Discharge Date Admission Date: October 17, 2023 Subjective No acute events overnight. Bin feels well this AM. He reports feeling tired after dialysis yesterday. He was not able to walk as much as he would have liked due to fatigue following treatment. He feels much better today. Review of Systems Review of Systems: All systems reviewed & are unremarkable except as noted in HPI & below Physical Exam Constitutional: well developed; no acute distress Eyes: no scleral abnormality and no corneal abnormality ENMT: Mouth: no oral mucosal abnormality and oral mucous membranes not dry Neck: normal visual inspection and trachea midline Respiratory: normal respiratory effort Auscultation: lungs clear to auscultation bilaterally Cardiovascular: Rate/Rhythm: regular rate Heart Sounds: normal S1 and normal S2 Extremities: normal capillary refill, + edema and + AV fistula Musculoskeletal: Extremities: no cyanosis and no clubbing Skin: normal turgor; no lesions Neurologic: Motor/Sensory: no tremor and no asterixis Psychiatric: Orientation: alert and oriented x 3 Results & Data Vital Signs (Past 12 Hours) Vital Signs Temp Pulse Resp BP Pulse Ox O2 Del Method 11/07/23 07:02 36.8 C 81 16 132/67 96 Room Air Laboratory Results Laboratory Results - last 24 hr 11/06/23 11/06/23 11/06/23 13:33 16:42 20:39 POC Glucose 124 H 167 H 124 H 11/07/23 07:53 POC Glucose 128 H PG Care Time/CCT Total # of Minutes Spent Total Time Spent with Patient: Total time spent is greater than 50% in coordination of care (as documented) at patient's floor/unit and/or counseling patient: Coding Level of Care Code 34530 SUB INP/OBS CARE 3/50MIN Diagnoses End stage renal disease N18.6 Diabetes type 2, uncontrolled E11.65 Anemia D64.9 Secondary hyperparathyroidism of renal origin N25.81 Hypertension I10
--- NOTE | 2023-11-07 13:53 | Hospitalist Progress Note ---
Date of Service November 07, 2023 Assessment & Plan (1) Acute kidney injury superimposed on stage 5 chronic kidney disease, not on chronic dialysis: Plan: A 62 yo male PMHx intellectual disability, CKD-V not yet on RN TRANSFER at time of admission, T2DM on insulin, ISAAK not on CPAP, secondary hyperparathyroidism, admitted after an episode of hypoglycemia as well as nausea and vomiting. Presented with KIRK on CKD-5 not on dialysis and progressed to ESRD with initiation of hemodialysis this admission. hemodialysis initiated this admission first runs 10/22, 10/23, 10/24 - tolerating well. BMP reviewed 11/05: creatinine 5.98, BUN 87 continue calcitriol miller apprentice consulting - reviewed recs and note access: RUE AVF, outpatient miller apprentice: Dr. Alejandro Continue 3 times a week dialysis. Awaiting SNF placement that accommodate outpatient dialysis AM CBC, BMP (2) End stage renal disease: Plan: see plan above (3) Hypoglycemia due to type 2 diabetes mellitus: Plan: continue basal bolus insulin - cont 12 units of glargine plus Premeal aspart - at goal does have CGM at home, presented with severe hypoglycemia (4) Leukocytosis: Plan: Now resolved with WBC 9.69. Unclear source initially up to 20,000 stress response related to vomiting.ED workup negative. Remains asymptomatic, no fevers, hypoxia or focal symptoms. Peripheral smear 10/29/2023 unremarkable Plan Chronic conditions: -Intellectual disability: difficulty caring for self at home. Has caregivers but alone overnight. POA's are interested in termite control representative placement which is pending -Anxiety: Buspar -BPH: Flomax -HTN: amlodipine, losartan -Anemia: PO iron, epogen with hemodialysis. Code status: full code DVT prophylaxis: heparin SQ Disposition: Plan is for placement, He will need to establish outpatient dialysis chair prior to discharge. Please call sisters with updates: Ban ; Renay Admission and Anticipated Discharge Date Admission Date: October 17, 2023 Subjective Patient seen and examined this afternoon. Patient reports to be doing well today. He denies any complaints. Physical Exam Constitutional: WD/WN, vitals as above Eyes: PERRL, conjunctivae normal, anicteric sclerae Respiratory: normal respiratory effort, lungs clear to auscultation Cardiovascular: RRR, no murmur, no edema Skin: no rashes, warm and dry Psychiatric: A+Ox3, euthymic affect Results & Data Results & Data Vital Signs (Past 12 Hours) Vital Signs Temp Pulse Resp BP Pulse Ox O2 Del Method 11/07/23 07:02 36.8 C 81 16 132/67 96 Room Air PG Care Time/CCT Total # of Minutes Spent Total Time Spent with Patient: Total time spent is greater than 50% in coordination of care (as documented) at patient's floor/unit and/or counseling patient: Coding Level of Care Code 35938 SUB INP/OBS CARE 2/35MIN Diagnoses Acute kidney injury superimposed on stage 5 chronic kidney disease, not on chronic dialysis N17.9; N18.5 End stage renal disease N18.6 Hypoglycemia due to type 2 diabetes mellitus E11.649 Leukocytosis, unspecified type D72.829 Leukocytosis type: unspecified (4) Leukocytosis Leukocytosis type: unspecified Qualified Code(s): D72.829 - Elevated white blood cell count, unspecified
[2023-11-08 07:24] LABS: Hemoglobin 9.6 g/dl (14.0-18.0); Mean Corpuscular Hemoglobin 30.9 pg (25.0-34.0); Mean Corpuscular Hgb Conc 33.1 g/dL (32.0-36.0); Mean Corpuscular Volume 93.2 fL (80.0-100.0); Mean Platelet Volume 9.5 fL (9.4-12.4); Platelet Count 163 K/uL (130-400); RDW Coefficient of Variation 14.4 % (11.5-14.5); RDW Standard Deviation 47.5 fL (36.4-46.3); Red Blood Count 3.11 M/uL (4.70-6.10); White Blood Count 10.25 K/ul (4.8-10.8)
[2023-11-08 07:45] LABS: BUN Creatinine Ratio 13.8 (10-20); Creatinine Clr Calc Pharmacy 15.7 ml/min; Est GFR (Non-African American) 10.3 ml/min; Potassium 3.9 mmol/L (3.5-5.1)
--- NOTE | 2023-11-08 09:45 | Nephrology Progress Note ---
Date of Service November 08, 2023 Assessment & Plan (1) End stage renal disease: Plan: ESRD attributed to DKD. Started HD 10/23/23 via Rt arm AV fistula (placed 04/12/2023 with transposition in July). Maintained on HD MWF. Primary quality assurance advisor is Dr. Alejandro. Orders for HD today have been entered into the EHR and reviewed with the butting saw operator. Medications are appropriate for IHD. Continue Renvela 1 tab QAC. Renal diet. (2) Diabetes type 2, uncontrolled: (3) Anemia: Plan: Chronic, stable. Epogen 87967 units with HD on 11/05. (4) Secondary hyperparathyroidism of renal origin: Plan: Continue calcitriol 0.25 QAM. Renvela 1 tab QAC. Low phosphorus diet. (5) Hypertension: Plan: Volume status controlled. BP acceptable. Continue amlodipine as Rx. Losartan may be restarted as needed. Admission and Anticipated Discharge Date Admission Date: October 17, 2023 Subjective No acute events overnight. No complaints this AM. Review of Systems Review of Systems: All systems reviewed & are unremarkable except as noted in HPI & below Physical Exam Constitutional: well developed; no acute distress Eyes: no scleral abnormality and no corneal abnormality ENMT: Mouth: no oral mucosal abnormality and oral mucous membranes not dry Neck: normal visual inspection and trachea midline Respiratory: normal respiratory effort Auscultation: lungs clear to auscultation bilaterally Cardiovascular: Rate/Rhythm: regular rate Heart Sounds: normal S1 and normal S2 Extremities: normal capillary refill, + edema and + AV fistula Musculoskeletal: Extremities: no cyanosis and no clubbing Skin: normal turgor; no lesions Neurologic: Motor/Sensory: no tremor and no asterixis Psychiatric: Orientation: alert and oriented x 3 Results & Data Vital Signs (Past 12 Hours) Vital Signs Temp Pulse Resp BP Pulse Ox O2 Del Method 11/08/23 07:13 36.9 C 86 18 132/64 97 Room Air Laboratory Results Laboratory Results - last 24 hr 11/07/23 11/07/23 11/07/23 11:49 16:51 20:21 WBC RBC Hgb Hct MCV MCH MCHC RDW Std Deviation RDW Coeff of Vinay Plt Count MPV Sodium Potassium Chloride Carbon Dioxide Anion Gap BUN Creatinine Est Cr Clr Drug Dosing Est GFR ( Amer) Est GFR (Non-Af Amer) BUN/Creatinine Ratio Glucose POC Glucose 217 H 137 H 212 H Calcium 11/08/23 11/08/23 06:41 07:32 WBC 10.25 RBC 3.11 L Hgb 9.6 L Hct 29.0 L MCV 93.2 MCH 30.9 MCHC 33.1 RDW Std Deviation 47.5 H RDW Coeff of Vinay 14.4 Plt Count 163 MPV 9.5 Sodium 136 Potassium 3.9 Chloride 100 Carbon Dioxide 26 Anion Gap 10 BUN 75 H Creatinine 5.43 H* Est Cr Clr Drug Dosing 15.7 Est GFR ( Amer) 12.0 Est GFR (Non-Af Amer) 10.3 BUN/Creatinine Ratio 13.8 Glucose 137 H POC Glucose 140 H Calcium 9.0 PG Care Time/CCT Total # of Minutes Spent Total Time Spent with Patient: Total time spent is greater than 50% in coordination of care (as documented) at patient's floor/unit and/or counseling patient: Coding Level of Care Code 07469 SUB INP/OBS CARE 3/50MIN Diagnoses End stage renal disease N18.6 Diabetes type 2, uncontrolled E11.65 Anemia D64.9 Secondary hyperparathyroidism of renal origin N25.81 Hypertension I10
--- NOTE | 2023-11-08 11:00 | Hospitalist Progress Note ---
Date of Service November 08, 2023 Assessment & Plan (1) Acute kidney injury superimposed on stage 5 chronic kidney disease, not on chronic dialysis: Plan: A 62 yo male PMHx intellectual disability, CKD-V not yet on RAIL GANG SUPERVISOR at time of admission, T2DM on insulin, ISAAK not on CPAP, secondary hyperparathyroidism, admitted after an episode of hypoglycemia as well as nausea and vomiting. Presented with KIRK on CKD-5 not on dialysis and progressed to ESRD with initiation of hemodialysis this admission. hemodialysis initiated this admission first runs 10/22, 10/23, 10/24 - tolerating well. BMP reviewed 11/07: creatinine 5.43, BUN 75 continue calcitriol wagon driver consulting - reviewed recs and note access: RUMary AVF, outpatient wagon driver: Dr. Alejandro Continue 3 times a week dialysis. Awaiting SNF placement that accommodate outpatient dialysis AM CBC, BMP (2) End stage renal disease: Plan: see plan above (3) Hypoglycemia due to type 2 diabetes mellitus: Plan: continue basal bolus insulin - cont 12 units of glargine plus Premeal aspart - at goal does have CGM at home, presented with severe hypoglycemia (4) Leukocytosis: Plan: Now resolved with WBC 9.69. Unclear source initially up to 20,000 stress response related to vomiting.ED workup negative. Remains asymptomatic, no fevers, hypoxia or focal symptoms. Peripheral smear 10/29/2023 unremarkable Plan Continue to monitor for ongoing symptoms regarding diarrhea. If persists, will obtain stool studies. Chronic conditions: -Intellectual disability: difficulty caring for self at home. Has caregivers but alone overnight. POA's are interested in joint terminal attack controller placement which is pending -Anxiety: BuSpar -BPH: Flomax -HTN: amlodipine, losartan -Anemia: PO iron, Epogen with hemodialysis. Code status: full code DVT prophylaxis: heparin SQ Disposition: Plan is for placement, He will need to establish outpatient dialysis chair prior to discharge. Please call sisters with updates: Ban ; Renay Admission and Anticipated Discharge Date Admission Date: October 17, 2023 Subjective Patient seen and examined this morning. Patient reports he had an episode of diarrhea this morning. He denies previous episodes before today. Denied abdominal pain, nausea, or vomiting. He denied additional complaints. He has dialysis today. Physical Exam 2 Constitutional: WD/WN, vitals as above Eyes: PERRL, conjunctivae normal, anicteric sclerae Respiratory: normal respiratory effort, lungs clear to auscultation Cardiovascular: RRR, no murmur, no edema Gastrointestinal (Abdomen): normal bowel sounds, soft, nontender, no hepatosplenomegaly Skin: no rashes, warm and dry Psychiatric: A+Ox3, euthymic affect Results & Data Results & Data Vital Signs (Past 12 Hours) Vital Signs Temp Pulse Pulse Pulse Resp BP BP 11/08/23 10:30 84 129/61 11/08/23 10:00 89 139/69 11/08/23 09:55 89 137/60 11/08/23 09:45 36.7 C 87 11/08/23 07:13 36.9 C 86 18 132/64 Pulse Ox O2 Del Method 11/08/23 10:30 11/08/23 10:00 11/08/23 09:55 11/08/23 09:45 11/08/23 07:13 97 Room Air Laboratory Results 11/08/23 06:41 11/08/23 06:41 PG Care Time/CCT Total # of Minutes Spent Total Time Spent with Patient: Total time spent is greater than 50% in coordination of care (as documented) at patient's floor/unit and/or counseling patient: Coding Level of Care Code 70317 SUB INP/OBS CARE 2/35MIN Diagnoses Acute kidney injury superimposed on stage 5 chronic kidney disease, not on chronic dialysis N17.9; N18.5 End stage renal disease N18.6 Hypoglycemia due to type 2 diabetes mellitus E11.649 Leukocytosis, unspecified type D72.829 Leukocytosis type: unspecified (4) Leukocytosis Leukocytosis type: unspecified Qualified Code(s): D72.829 - Elevated white blood cell count, unspecified
--- NOTE | 2023-11-09 10:23 | Nephrology Progress Note ---
Date of Service November 09, 2023 Assessment & Plan (1) End stage renal disease: Plan: ESRD attributed to DKD. Started HD 10/23/23 via Rt arm AV fistula (placed 04/12/2023 with transposition in July). Maintained on HD MWF. Primary provider engagement executive is Dr. Alejandro. Adequate clearance and UF with HD yesterday. Next HD tomrorow. Medications are appropriate for IHD. Continue Renvela 1 tab QAC. Renal diet. (2) Diabetes type 2, uncontrolled: (3) Anemia: Plan: Chronic, stable. Epogen 03266 units with HD on 11/05. (4) Secondary hyperparathyroidism of renal origin: Plan: Continue calcitriol 0.25 QAM. Renvela 1 tab QAC. Low phosphorus diet. (5) Hypertension: Plan: Volume status controlled. BP acceptable. Continue amlodipine as Rx. Losartan may be restarted as needed. Admission and Anticipated Discharge Date Admission Date: October 17, 2023 Subjective No acute events overnight. Bin tolerated HD well yesterday. Chronic back pain reported. This appears to be exacerbated by time in bed. Bin is feeling frustrated by the duration of his hospitalization. Review of Systems Review of Systems: All systems reviewed & are unremarkable except as noted in HPI & below Physical Exam Constitutional: well developed; no acute distress Eyes: no scleral abnormality and no corneal abnormality ENMT: Mouth: no oral mucosal abnormality and oral mucous membranes not dry Neck: normal visual inspection and trachea midline Respiratory: normal respiratory effort Auscultation: lungs clear to auscultation bilaterally Cardiovascular: Rate/Rhythm: regular rate Heart Sounds: normal S1 and normal S2 Extremities: normal capillary refill, + edema and + AV fistula Musculoskeletal: Extremities: no cyanosis and no clubbing Skin: normal turgor; no lesions Neurologic: Motor/Sensory: no tremor and no asterixis Psychiatric: Orientation: alert and oriented x 3 Results & Data Vital Signs (Past 12 Hours) Vital Signs Temp Pulse Resp BP Pulse Ox O2 Del Method 11/09/23 07:52 36.8 C 81 16 123/67 97 Room Air Laboratory Results Laboratory Results - last 24 hr 11/08/23 11/08/23 11/08/23 13:51 16:35 20:18 POC Glucose 125 H 114 H 187 H 11/09/23 07:52 POC Glucose 136 H PG Care Time/CCT Total # of Minutes Spent Total Time Spent with Patient: Total time spent is greater than 50% in coordination of care (as documented) at patient's floor/unit and/or counseling patient: Coding Level of Care Code 23747 SUB INP/OBS CARE 3/50MIN Diagnoses End stage renal disease N18.6 Diabetes type 2, uncontrolled E11.65 Anemia D64.9 Secondary hyperparathyroidism of renal origin N25.81 Hypertension I10
--- NOTE | 2023-11-09 10:42 | Hospitalist Progress Note ---
Date of Service November 09, 2023 Assessment & Plan (1) Acute kidney injury superimposed on stage 5 chronic kidney disease, not on chronic dialysis: Plan: A 62 yo male PMHx intellectual disability, CKD-V not yet on DIRECTOR OF PRODUCT MANAGEMENT at time of admission, T2DM on insulin, ISAAK not on CPAP, secondary hyperparathyroidism, admitted after an episode of hypoglycemia as well as nausea and vomiting. Presented with KIRK on CKD-5 not on dialysis and progressed to ESRD with initiation of hemodialysis this admission. hemodialysis initiated this admission first runs 10/22, 10/23, 10/24 - tolerating well. BMP reviewed 11/07: creatinine 5.43, BUN 75 continue calcitriol health and safety technician consulting - reviewed recs and note access: RUE AVF, outpatient health and safety technician: Dr. Alejandro Continue 3 times a week dialysis. Awaiting SNF placement that accommodate outpatient dialysis AM CBC, BMP (2) End stage renal disease: Plan: see plan above (3) Hypoglycemia due to type 2 diabetes mellitus: Plan: continue basal bolus insulin - cont 12 units of glargine plus Premeal aspart - at goal does have CGM at home, presented with severe hypoglycemia (4) Leukocytosis: Plan: Now resolved with WBC 9.69. Unclear source initially up to 20,000 stress response related to vomiting.ED workup negative. Remains asymptomatic, no fevers, hypoxia or focal symptoms. Peripheral smear 10/29/2023 unremarkable Plan Diarrhea since resolved. Chronic conditions: -Intellectual disability: difficulty caring for self at home. Has caregivers but alone overnight. POA's are interested in tank terminal gauger placement which is pending -Anxiety: BuSpar -BPH: Flomax -HTN: amlodipine, losartan -Anemia: PO iron, Epogen with hemodialysis. Code status: full code DVT prophylaxis: heparin SQ Disposition: Plan is for placement, He will need to establish outpatient dialysis chair prior to discharge. Please call sisters with updates: Ban ; Renay Admission and Anticipated Discharge Date Admission Date: October 17, 2023 Subjective Patient seen and examined this morning. He reports cessation of his one episode of diarrhea yesterday. Reports no further complaints. Physical Exam Constitutional: WD/WN, vitals as above Eyes: PERRL, conjunctivae normal, anicteric sclerae Respiratory: normal respiratory effort, lungs clear to auscultation Cardiovascular: RRR, no murmur, no edema Gastrointestinal (Abdomen): normal bowel sounds, soft, nontender, no hepatosplenomegaly Skin: no rashes, warm and dry Psychiatric: A+Ox3, euthymic affect Results & Data Results & Data Vital Signs (Past 12 Hours) Vital Signs Temp Pulse Resp BP Pulse Ox O2 Del Method 11/09/23 07:52 36.8 C 81 16 123/67 97 Room Air PG Care Time/CCT Total # of Minutes Spent Total Time Spent with Patient: Total time spent is greater than 50% in coordination of care (as documented) at patient's floor/unit and/or counseling patient: Coding Level of Care Code 67533 SUB INP/OBS CARE 2/35MIN Diagnoses Acute kidney injury superimposed on stage 5 chronic kidney disease, not on chronic dialysis N17.9; N18.5 End stage renal disease N18.6 Hypoglycemia due to type 2 diabetes mellitus E11.649 Leukocytosis, unspecified type D72.829 Leukocytosis type: unspecified (4) Leukocytosis Leukocytosis type: unspecified Qualified Code(s): D72.829 - Elevated white blood cell count, unspecified
[2023-11-09] MEDS: TRIAMCINOLONE ACET 0.5% CR 15 GM TUBE TOP PRN (12:55)
[2023-11-10 08:12] LABS: Hematocrit (blood only) 29.9 % (42.0-52.0); Hemoglobin 9.6 g/dl (14.0-18.0); Mean Corpuscular Hemoglobin 30.9 pg (25.0-34.0); Mean Corpuscular Hgb Conc 32.1 g/dL (32.0-36.0); Mean Corpuscular Volume 96.1 fL (80.0-100.0); Platelet Count 206 K/uL (130-400); RDW Coefficient of Variation 14.6 % (11.5-14.5); RDW Standard Deviation 49.1 fL (36.4-46.3); Red Blood Count 3.11 M/uL (4.70-6.10); White Blood Count 10.16 K/ul (4.8-10.8)
[2023-11-10 08:58] LABS: Calcium 8.9 mg/dl (8.6-10.3); Potassium 3.8 mmol/L (3.5-5.1)
[2023-11-10 09:08] LABS: Est GFR (African American) 14.1 ml/min
[2023-11-10 09:09] LABS: Creatinine Clr Calc Pharmacy 18.1 ml/min; Est GFR (Non-African American) 12.2 ml/min
--- NOTE | 2023-11-10 12:09 | Nephrology Progress Note ---
Date of Service November 10, 2023 Assessment & Plan (1) End stage renal disease: Plan: ESRD attributed to DKD. Started HD 10/23/23 via Rt arm AV fistula (placed 04/12/2023 with transposition in July). Maintained on HD MWF. Primary doughnut maker is Dr. Alejandro. Orders for HD today entered into the EHR and reviewed with sales engagement manager. Bin is tolerating treatments well. Medications are appropriate for IHD. Continue Renvela 1 tab QAC. Renal diet. (2) Anemia: Plan: Chronic, stable. Epogen 73490 units with HD on 11/05. (3) Secondary hyperparathyroidism of renal origin: Plan: Continue calcitriol 0.25 QAM. Renvela 1 tab QAC. Low phosphorus diet. (4) Hypertension: Plan: Volume status controlled. BP acceptable. Continue amlodipine as Rx. Losartan may be restarted as needed. Admission and Anticipated Discharge Date Admission Date: October 17, 2023 Subjective No acute events overnight. No complaints this AM. Bin was seen and evaluated during hemodialysis. He admits to some lower back discomfort from being stuck in his hospital bed for too long but otherwise tolerating treatment well. Review of Systems Review of Systems: All systems reviewed & are unremarkable except as noted in HPI & below Physical Exam Constitutional: well developed; no acute distress Eyes: no scleral abnormality and no corneal abnormality ENMT: Mouth: no oral mucosal abnormality and oral mucous membranes not dry Neck: normal visual inspection and trachea midline Respiratory: normal respiratory effort Auscultation: lungs clear to auscultation bilaterally Cardiovascular: Rate/Rhythm: regular rate Heart Sounds: normal S1 and normal S2 Extremities: + edema and + AV fistula Musculoskeletal: Extremities: no cyanosis and no clubbing Skin: normal turgor; no lesions Neurologic: Motor/Sensory: no tremor and no asterixis Psychiatric: Orientation: alert and oriented x 3 Results & Data Vital Signs (Past 12 Hours) Vital Signs Temp Pulse Pulse Pulse Resp BP BP 11/10/23 11:30 80 99/59 L 11/10/23 11:00 81 118/66 11/10/23 10:30 81 116/59 L 11/10/23 10:00 78 91/51 L 11/10/23 09:30 80 113/56 L 11/10/23 09:05 36.7 C 80 08/23/24 07:27 36.7 C 86 16 148/74 H Pulse Ox O2 Del Method 11/10/23 11:30 11/10/23 11:00 11/10/23 10:30 11/10/23 10:00 11/10/23 09:30 11/10/23 09:05 11/10/23 07:27 98 Room Air Laboratory Results Laboratory Results - last 24 hr 11/09/23 11/09/23 11/10/23 16:23 20:38 07:06 WBC 10.16 RBC 3.11 L Hgb 9.6 L Hct 29.9 L MCV 96.1 MCH 30.9 MCHC 32.1 RDW Std Deviation 49.1 H RDW Coeff of Vinay 14.6 H Plt Count 206 MPV 9.0 L Sodium 135 L Potassium 3.8 Chloride 100 Carbon Dioxide 26 Anion Gap 9 BUN 66 H Creatinine 4.73 H* Est Cr Clr Drug Dosing 18.1 Est GFR ( Amer) 14.1 Est GFR (Non-Af Amer) 12.2 BUN/Creatinine Ratio 14.0 Glucose 160 H POC Glucose 146 H 155 H Calcium 8.9 11/10/23 07:27 WBC RBC Hgb Hct MCV MCH MCHC RDW Std Deviation RDW Coeff of Vinay Plt Count MPV Sodium Potassium Chloride Carbon Dioxide Anion Gap BUN Creatinine Est Cr Clr Drug Dosing Est GFR ( Amer) Est GFR (Non-Af Amer) BUN/Creatinine Ratio Glucose POC Glucose 173 H Calcium PG Care Time/CCT Total # of Minutes Spent Total Time Spent with Patient: Total time spent is greater than 50% in coordination of care (as documented) at patient's floor/unit and/or counseling patient: Coding Level of Care Code 31002 SUB INP/OBS CARE 3/50MIN Diagnoses End stage renal disease N18.6 Anemia D64.9 Secondary hyperparathyroidism of renal origin N25.81 Hypertension I10
--- NOTE | 2023-11-10 13:42 | Hospitalist Progress Note ---
Date of Service November 10, 2023 Assessment & Plan (1) Acute kidney injury superimposed on stage 5 chronic kidney disease, not on chronic dialysis: Plan: A 62 yo male PMHx intellectual disability, CKD-V not yet on SHIP STEWARD at time of admission, T2DM on insulin, ISAAK not on CPAP, secondary hyperparathyroidism, admitted after an episode of hypoglycemia as well as nausea and vomiting. Presented with KIRK on CKD-5 not on dialysis and progressed to ESRD with initiation of hemodialysis this admission. hemodialysis initiated this admission first runs 10/22, 10/23, 10/24 - tolerating well. BMP reviewed 11/09: creatinine 4.73, BUN 66 continue calcitriol power plant operator apprentice consulting - reviewed recs and note access: RUE AVF, outpatient power plant operator apprentice: Dr. Alejandro Continue 3 times a week dialysis. Awaiting SNF placement that accommodate outpatient dialysis (2) End stage renal disease: Plan: see plan above (3) Hypoglycemia due to type 2 diabetes mellitus: Plan: continue basal bolus insulin - cont 12 units of glargine plus Premeal aspart - at goal does have CGM at home, presented with severe hypoglycemia (4) Leukocytosis: Plan: Now resolved with WBC 9.69. Unclear source initially up to 20,000 stress response related to vomiting.ED workup negative. Remains asymptomatic, no fevers, hypoxia or focal symptoms. Peripheral smear 10/29/2023 unremarkable Plan Chronic conditions: -Intellectual disability: difficulty caring for self at home. Has caregivers but alone overnight. POA's are interested in medical terminologist placement which is pending -Anxiety: BuSpar -BPH: Flomax -HTN: amlodipine, losartan -Anemia: PO iron, Epogen with hemodialysis. Code status: full code DVT prophylaxis: heparin SQ Disposition: Plan is for placement, He will need to establish outpatient dialysis chair prior to discharge. Please call sisters with updates: Ban ; Renay Admission and Anticipated Discharge Date Admission Date: October 17, 2023 Subjective Patient seen and examined this afternoon. He tolerated dialysis well. Reports feeling fatigued following his session but denies any additional complaints. Physical Exam 2 Constitutional: WD/WN, vitals as above Eyes: PERRL, conjunctivae normal, anicteric sclerae Respiratory: normal respiratory effort, lungs clear to auscultation Cardiovascular: RRR, no murmur, no edema Gastrointestinal (Abdomen): normal bowel sounds, soft, nontender, no hepatosplenomegaly Skin: no rashes, warm and dry Psychiatric: A+Ox3, euthymic affect Results & Data Results & Data Vital Signs (Past 12 Hours) Vital Signs Temp Pulse Pulse Pulse Resp BP BP 11/10/23 12:55 36.6 C 84 139/70 11/10/23 12:30 82 120/60 11/10/23 12:00 83 106/60 11/10/23 11:30 80 99/59 L 11/10/23 11:00 81 118/66 11/10/23 10:30 81 116/59 L 11/10/23 10:00 78 91/51 L 11/10/23 09:30 80 113/56 L 11/10/23 09:05 36.7 C 80 11/10/23 07:27 36.7 C 86 16 148/74 H Pulse Ox O2 Del Method 11/10/23 12:55 11/10/23 12:30 11/10/23 12:00 11/10/23 11:30 11/10/23 11:00 11/10/23 10:30 11/10/23 10:00 11/10/23 09:30 11/10/23 09:05 11/10/23 07:27 98 Room Air Laboratory Results 11/10/23 07:06 11/10/23 07:06 PG Care Time/CCT Total # of Minutes Spent Total Time Spent with Patient: Total time spent is greater than 50% in coordination of care (as documented) at patient's floor/unit and/or counseling patient: Coding Level of Care Code 32431 SUB INP/OBS CARE 2/35MIN Diagnoses Acute kidney injury superimposed on stage 5 chronic kidney disease, not on chronic dialysis N17.9; N18.5 End stage renal disease N18.6 Hypoglycemia due to type 2 diabetes mellitus E11.649 Leukocytosis, unspecified type D72.829 Leukocytosis type: unspecified (4) Leukocytosis Leukocytosis type: unspecified Qualified Code(s): D72.829 - Elevated white blood cell count, unspecified
--- NOTE | 2023-11-11 09:02 | Nephrology Progress Note ---
Date of Service November 11, 2023 Assessment & Plan (1) End stage renal disease: Plan: * ESKD due to DKD. Started HD 10/23/23 via Rt arm AV fistula (placed 04/12/2023 with transposition in July). * Maintained on HD MWF. Primary rack puller is Dr. Alejandro. * Awaiting BMP this am * Volume status is acceptable. No acute indication for HD today. Will reassess in am (2) Anemia: Plan: * Chronic, stable. Epogen 36522 units with HD on 11/05. (3) Secondary hyperparathyroidism of renal origin: Plan: * Continue calcitriol 0.25 QAM. Renvela 1 tab QAC. Low phosphorus diet. (4) Hypertension: Plan: * BP is acceptable. Continue amlodipine and furosemide Admission and Anticipated Discharge Date Admission Date: October 17, 2023 Subjective Mr. Miles was evaluated in his hospital room this morning. He reports that he was dialyzed yesterday without complication. He currently denies fever, angina, dyspnea or uremic symptoms. He walks the hallways with assistance daily. He hopes to be transferred to a personal senior living soon. Review of Systems Constitutional: no fever Eyes: no problem reported Ear, Nose, Mouth, Throat: no problem reported Respiratory: no cough and no dyspnea Cardiovascular: no chest pain Gastrointestinal: no abdominal pain, no nausea, no vomiting and no diarrhea/loose stools Integumentary: no rash Physical Exam Constitutional: not in distress Eyes: PERRL, conjunctivae normal, anicteric sclerae ENMT: external ear and nose normal, oropharynx normal Neck: trachea midline, no thyromegaly Respiratory: normal respiratory effort, lungs clear to auscultation Cardiovascular: Rate/Rhythm: regular rate and regular rhythm Extremities: + AV fistula (Positive bruit); no edema Gastrointestinal (Abdomen): normal bowel sounds, soft, nontender, no hepatosplenomegaly Skin: no rashes, warm and dry Neurologic: Speech / Cognition: normal speech Results & Data Vital Signs (Past 12 Hours) Vital Signs Temp Pulse Resp BP Pulse Ox O2 Del Method 11/11/23 07:44 36.8 C 78 16 109/63 97 Room Air Laboratory Results Laboratory Results - last 24 hr Laboratory Results - last 24 hr 11/10/23 11/10/23 11/10/23 13:30 16:17 20:23 WBC RBC Hgb Hct MCV MCH MCHC RDW Std Deviation RDW Coeff of Vinay Plt Count MPV POC Glucose 133 H 211 H 130 H 11/11/23 11/11/23 07:34 09:28 WBC 9.69 RBC 3.36 L Hgb 10.5 L Hct 32.2 L MCV 95.8 MCH 31.3 MCHC 32.6 RDW Std Deviation 49.6 H RDW Coeff of Vinay 14.6 H Plt Count 203 MPV 8.9 L POC Glucose 145 H PG Care Time/CCT Total # of Minutes Spent Total Time Spent with Patient: Total time spent is greater than 50% in coordination of care (as documented) at patient's floor/unit and/or counseling patient: Coding Level of Care Code 73826 SUB INP/OBS CARE 3/50MIN Diagnoses End stage renal disease N18.6 Anemia D64.9 Secondary hyperparathyroidism of renal origin N25.81 Hypertension I10
[2023-11-11 09:40] LABS: Hematocrit (blood only) 32.2 % (42.0-52.0); Hemoglobin 10.5 g/dl (14.0-18.0); Mean Corpuscular Hemoglobin 31.3 pg (25.0-34.0); Mean Corpuscular Hgb Conc 32.6 g/dL (32.0-36.0); Mean Corpuscular Volume 95.8 fL (80.0-100.0); Mean Platelet Volume 8.9 fL (9.4-12.4); Platelet Count 203 K/uL (130-400); RDW Coefficient of Variation 14.6 % (11.5-14.5); RDW Standard Deviation 49.6 fL (36.4-46.3); Red Blood Count 3.36 M/uL (4.70-6.10); White Blood Count 9.69 K/ul (4.8-10.8)
--- NOTE | 2023-11-11 12:10 | Hospitalist Progress Note ---
Date of Service November 11, 2023 Assessment & Plan (1) Acute kidney injury superimposed on stage 5 chronic kidney disease, not on chronic dialysis: Plan: A 62 yo male PMHx intellectual disability, CKD-V not yet on OUTPATIENT CODING SPECIALIST at time of admission, T2DM on insulin, ISAAK not on CPAP, secondary hyperparathyroidism, admitted after an episode of hypoglycemia as well as nausea and vomiting. initiated hemodialysis this admission #Presented with KIRK on CKD-5 not on dialysis. 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 Progressed to ESRD and initiated hemodialysis this admission hemodialysis initiated this admission first runs 10/22, 10/23, 10/24 - tolerating wel l. Continue 3x/wk. F estimator paperboard boxes consulting - continue calcitriol - continue Renvela and Nephrocaps, Lasix 40 Mg daily access: SUKHDEV ABDI, outpatient estimator paperboard boxes: Dr. Alejandro awaiting appropriate disposition and outpatient dialysis appointment Also with anemia of CKD - epogen and PO Fe per nephrology (2) Hypoglycemia due to type 2 diabetes mellitus: Plan: Jardiance has been discontinued. Home dose lantus is 20units Does have CGM at home, presented with hypoglycemia (reported down to 29 at home) - continue basal bolus insulin 16 units of glargine plus Premeal aspart - 11/10 CF reduced from 22 to 18 (3) Leukocytosis: Plan: Unclear source initially up to 20,000 stress response related to vomiting, however mild leukocytosis persists but improving - CXR/procal/UA/COVID/flu/rsv negative - possible he had some aspiration pneumonitis at the time of admission related to his vomiting and inflammation is taking some time to resolve Remains asymptomatic, no fevers, hypoxia or focal symptoms. Peripheral smear Path: no infectious signs, cause of leukocytosis left for clinical correlation. (4) End stage renal disease: Plan: Started on 3x/week dialysis this admission as above (5) Cognitive disorder: Plan: Pt having increasing difficulty caring for himself Has caregivers in during the day but alone overnight POAs are sisters and they are interested in clay stain mixer placement for him at this time Plan is long-term placement, CM following Plan Chronic stable medical problems: * anxiety - continue buspar * BPH - continue flomax * HTN - continue amlodipine, control improved with serial HD Code status: full code DVT prophylaxis: heparin SQ Disposition: Plan is for placement, He will need to establish outpatient dialysis chair prior to discharge. Please call sisters with updates: Ban ; Renay Admission and Anticipated Discharge Date Admission Date: October 17, 2023 Subjective Patient seen sititng at the side of the bed, enjoying the view out his window. No acute complaints. Review of Systems Review of Systems: All systems reviewed & are unremarkable except as noted in Subjective Physical Exam Physical Exam: General: NAD, VS as above, sitting up in bed, pleasant Resp: normal respiratory effort, lungs clear to auscultation CV: RRR, no murmur, Extremities: Moves all extremities, dialysis fistula right arm Neuro: A&O x3, Results & Data Results & Data Vital Signs (Past 12 Hours) Vital Signs Temp Pulse Resp BP Pulse Ox O2 Del Method 11/11/23 07:44 36.8 C 78 16 109/63 97 Room Air Laboratory Results CBC and POC glucose reviewed PG Care Time/CCT Total # of Minutes Spent Total Time Spent with Patient: Total time spent is greater than 50% in coordination of care (as documented) at patient's floor/unit and/or counseling patient: Coding Level of Care Code 08125 SUB INP/OBS CARE 2/35MIN Diagnoses Acute kidney injury superimposed on stage 5 chronic kidney disease, not on chronic dialysis N17.9; N18.5 Hypoglycemia due to type 2 diabetes mellitus E11.649 Leukocytosis, unspecified type D72.829 Leukocytosis type: unspecified End stage renal disease N18.6 Cognitive disorder F09 (3) Leukocytosis Leukocytosis type: unspecified Qualified Code(s): D72.829 - Elevated white blood cell count, unspecified
[2023-11-11 12:47] LABS: BUN Creatinine Ratio 14.1 (10-20); Calcium 9.6 mg/dl (8.6-10.3); Creatinine Clr Calc Pharmacy 18.8 ml/min; Est GFR (African American) 14.8 ml/min; Est GFR (Non-African American) 12.8 ml/min; Potassium 3.9 mmol/L (3.5-5.1)
[2023-11-12 06:11] LABS: Hematocrit (blood only) 28.9 % (42.0-52.0); Hemoglobin 9.6 g/dl (14.0-18.0); Mean Corpuscular Hgb Conc 33.2 g/dL (32.0-36.0); Mean Corpuscular Volume 93.2 fL (80.0-100.0); Mean Platelet Volume 8.7 fL (9.4-12.4); Platelet Count 196 K/uL (130-400); RDW Coefficient of Variation 14.5 % (11.5-14.5); RDW Standard Deviation 47.7 fL (36.4-46.3); White Blood Count 9.61 K/ul (4.8-10.8)
[2023-11-12 06:28] LABS: BUN Creatinine Ratio 16.8 (10-20); Creatinine Clr Calc Pharmacy 18.1 ml/min; Est GFR (African American) 14.2 ml/min; Est GFR (Non-African American) 12.2 ml/min; Potassium 3.9 mmol/L (3.5-5.1)
--- NOTE | 2023-11-12 09:15 | Hospitalist Progress Note ---
Date of Service November 12, 2023 Assessment & Plan (1) Acute kidney injury superimposed on stage 5 chronic kidney disease, not on chronic dialysis: Plan: A 62 yo male PMHx intellectual disability, CKD-V not yet on BOTTOM PAINTER at time of admission, T2DM on insulin, ISAAK not on CPAP, secondary hyperparathyroidism, admitted after an episode of hypoglycemia as well as nausea and vomiting. initiated hemodialysis this admission #Presented with KIRK on CKD-5 not on dialysis. 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 Progressed to ESRD and initiated hemodialysis this admission hemodialysis initiated this admission first runs 10/22, 10/23, 10/24 - tolerating wel l. Continue 3x/wk. F front office manager consulting - continue calcitriol - continue Renvela and Nephrocaps, Lasix 40 Mg daily access: SUKHDEV ABDI, outpatient front office manager: Dr. Alejandro awaiting appropriate disposition and outpatient dialysis appointment Also with anemia of CKD - epogen and PO Fe per nephrology (2) Hypoglycemia due to type 2 diabetes mellitus: Plan: Jardiance has been discontinued. Home dose lantus is 20units Does have CGM at home, presented with hypoglycemia (reported down to 29 at home) - continue basal bolus insulin 16 units of glargine plus Premeal aspart - 11/10 CF reduced from 22 to 18 (3) Leukocytosis: Plan: Unclear source initially up to 20,000 stress response related to vomiting, however mild leukocytosis persists but improving - CXR/procal/UA/COVID/flu/rsv negative - possible he had some aspiration pneumonitis at the time of admission related to his vomiting and inflammation is taking some time to resolve Remains asymptomatic, no fevers, hypoxia or focal symptoms. Peripheral smear Path: no infectious signs, cause of leukocytosis left for clinical correlation. (4) End stage renal disease: Plan: Started on 3x/week dialysis this admission as above (5) Cognitive disorder: Plan: Pt having increasing difficulty caring for himself Has caregivers in during the day but alone overnight POAs are sisters and they are interested in termite exterminator helper placement for him at this time Plan is penitentiary placement, CM following Plan Chronic stable medical problems: * anxiety - continue buspar * BPH - continue flomax * HTN - continue amlodipine, control improved with serial HD Code status: full code DVT prophylaxis: heparin SQ Disposition: Plan is for placement, He will need to establish outpatient dialysis chair prior to discharge. Please call sisters with updates: Ban ; Renay Admission and Anticipated Discharge Date Admission Date: October 17, 2023 Subjective Patient seen lying in bed. no acute complaints still making urine Review of Systems Review of Systems: All systems reviewed & are unremarkable except as noted in Subjective Physical Exam Physical Exam: General: NAD, VS as above, lying in bed, pleasant Resp: normal respiratory effort, lungs clear to auscultation CV: RRR, no murmur, Extremities: Moves all extremities, dialysis fistula right arm Neuro: A&O x3, Results & Data Results & Data Laboratory Results POC glucose results reviewed PG Care Time/CCT Total # of Minutes Spent Total Time Spent with Patient: Total time spent is greater than 50% in coordination of care (as documented) at patient's floor/unit and/or counseling patient: Coding Level of Care Code 05279 SUB INP/OBS CARE /25MIN Diagnoses Acute kidney injury superimposed on stage 5 chronic kidney disease, not on chronic dialysis N17.9; N18.5 Hypoglycemia due to type 2 diabetes mellitus E11.649 Leukocytosis, unspecified type D72.829 Leukocytosis type: unspecified End stage renal disease N18.6 Cognitive disorder F09 (3) Leukocytosis Leukocytosis type: unspecified Qualified Code(s): D72.829 - Elevated white blood cell count, unspecified
[2023-11-13] MEDS ORDERED: SODIUM CHLORIDE 0.9% 1,000 ML IV PRN (07:00)
--- NOTE | 2023-11-13 08:48 | Nephrology Progress Note ---
Date of Service November 13, 2023 Assessment & Plan (1) End stage renal disease: Plan: * ESKD due to DKD. Started HD 10/23/23 via Rt arm AV fistula (placed 04/12/2023 with transposition in July). * Maintained on HD MWF. Primary supervisor hospitality house is Dr. Alejandro. * Will provide HD today. Patient appears relatively euvolemic. BP is controlled. Will attempt only 1L UF (2) Anemia: Plan: * Chronic, stable. Epogen 58952 units with HD on 11/05. (3) Secondary hyperparathyroidism of renal origin: Plan: * Continue calcitriol 0.25 QAM. Renvela 1 tab QAC. Low phosphorus diet. (4) Hypertension: Plan: * BP is acceptable. Continue amlodipine and furosemide Admission and Anticipated Discharge Date Admission Date: October 17, 2023 Subjective Mr. Miles was evaluated during HD this morning. He voiced no medical concerns. Mr. Miles hopes to be transferred to a personal fpc soon. Review of Systems Constitutional: no fever Eyes: no problem reported Ear, Nose, Mouth, Throat: no problem reported Respiratory: no cough and no dyspnea Cardiovascular: no chest pain Gastrointestinal: no abdominal pain, no nausea, no vomiting and no diarrhea/loose stools Integumentary: no rash Physical Exam Constitutional: not in distress Eyes: PERRL, conjunctivae normal, anicteric sclerae ENMT: external ear and nose normal, oropharynx normal Neck: trachea midline, no thyromegaly Respiratory: normal respiratory effort, lungs clear to auscultation Cardiovascular: Rate/Rhythm: regular rate and regular rhythm Extremities: + AV fistula (Positive bruit); no edema Gastrointestinal (Abdomen): normal bowel sounds, soft, nontender, no hepatosplenomegaly Skin: no rashes, warm and dry Neurologic: Speech / Cognition: normal speech Results & Data Vital Signs (Past 12 Hours) Vital Signs Temp Pulse Resp BP Pulse Ox O2 Del Method 11/13/23 07:34 37.0 C 86 18 138/72 95 Room Air 11/12/23 21:23 36.9 C 87 16 150/77 H 98 Room Air PG Care Time/CCT Total # of Minutes Spent Total Time Spent with Patient: Total time spent is greater than 50% in coordination of care (as documented) at patient's floor/unit and/or counseling patient: Coding Level of Care Code 63277 SUB INP/OBS CARE MIN Diagnoses End stage renal disease N18.6 Anemia D64.9 Secondary hyperparathyroidism of renal origin N25.81 Hypertension I10
[2023-11-13] MEDS: HEPARIN SOD (PORCINE) 1000 UNIT/ML IV ONE (09:39)
[2023-11-13] MEDS: HEPARIN SOD (PORCINE) 1000 UNIT/ML IV SCH (11:51)
--- NOTE | 2023-11-13 12:59 | Hospitalist Progress Note ---
Date of Service November 13, 2023 Assessment & Plan (1) Acute kidney injury superimposed on stage 5 chronic kidney disease, not on chronic dialysis: Plan: A 62 yo male PMHx intellectual disability, CKD-V not yet on CRNA at time of admission, T2DM on insulin, ISAAK not on CPAP, secondary hyperparathyroidism, admitted after an episode of hypoglycemia as well as nausea and vomiting. initiated hemodialysis this admission #Presented with KIRK on CKD-5 not on dialysis. 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 Progressed to ESRD and initiated hemodialysis this admission hemodialysis initiated this admission first runs 10/22, 10/23, 10/24 - tolerating wel l. Continue 3x/wk. MWF data virtualization consultant consulting - continue calcitriol - continue Renvela and Nephrocaps, Lasix 40 Mg daily access: SUKHDEV ABDI, outpatient data virtualization consultant: Dr. Alejandro awaiting appropriate disposition and outpatient dialysis appointment Also with anemia of CKD - epogen and PO Fe per nephrology (2) Hypoglycemia due to type 2 diabetes mellitus: Plan: Jardiance has been discontinued. Home dose lantus is 20units Does have CGM at home, presented with hypoglycemia (reported down to 29 at home) - continue basal bolus insulin 16 units of glargine plus Premeal aspart - 11/10 CF reduced from 22 to 18 better control with recent adjustments (3) Leukocytosis: Plan: Unclear source initially up to 20,000 stress response related to vomiting, however mild leukocytosis persists but improving - CXR/procal/UA/COVID/flu/rsv negative - possible he had some aspiration pneumonitis at the time of admission related to his vomiting and inflammation is taking some time to resolve Remains asymptomatic, no fevers, hypoxia or focal symptoms. Peripheral smear Path: no infectious signs, cause of leukocytosis left for clinical correlation. (4) End stage renal disease: Plan: Started on 3x/week dialysis this admission as above (5) Cognitive disorder: Plan: Pt having increasing difficulty caring for himself Has caregivers in during the day but alone overnight POAs are sisters and they are interested in renewable energy engineer placement for him at this time Plan is jail placement, CM following Plan Chronic stable medical problems: * anxiety - continue buspar * BPH - continue flomax * HTN - continue amlodipine, control improved with serial HD Code status: full code DVT prophylaxis: heparin SQ Disposition: Plan is for placement, He will need to establish outpatient dialysis chair prior to discharge. Please call sisters with updates: Ban ; Renay Admission and Anticipated Discharge Date Admission Date: October 17, 2023 Subjective Patient seen during dialysis, feeling well no acute concerns taking it one day at a time Review of Systems Review of Systems: All systems reviewed & are unremarkable except as noted in Subjective Physical Exam Physical Exam: General: NAD, VS as above, lying in bed, pleasant Resp: normal respiratory effort, lungs clear to auscultation CV: RRR, no murmur, Extremities: Moves all extremities, dialysis fistula right arm Neuro: A&O x3, Results & Data Results & Data Vital Signs (Past 12 Hours) Vital Signs Temp Pulse Pulse Pulse Resp BP BP 11/13/23 12:30 85 132/66 11/13/23 12:00 85 130/69 11/13/23 11:30 85 132/63 11/13/23 11:00 88 125/66 11/13/23 10:30 85 118/62 11/13/23 10:00 84 118/64 11/13/23 09:32 81 125/63 11/13/23 09:12 36.7 C 81 11/13/23 07:34 37.0 C 86 18 138/72 Pulse Ox O2 Del Method 11/13/23 12:30 11/13/23 12:00 11/13/23 11:30 11/13/23 11:00 11/13/23 10:30 11/13/23 10:00 11/13/23 09:32 11/13/23 09:12 11/13/23 07:34 95 Room Air Laboratory Results POC glucose reviewed PG Care Time/CCT Total # of Minutes Spent Total Time Spent with Patient: Total time spent is greater than 50% in coordination of care (as documented) at patient's floor/unit and/or counseling patient: Coding Level of Care Code 06861 SUB INP/OBS CARE 04/13MIN Diagnoses Acute kidney injury superimposed on stage 5 chronic kidney disease, not on chronic dialysis N17.9; N18.5 Hypoglycemia due to type 2 diabetes mellitus E11.649 Leukocytosis, unspecified type D72.829 Leukocytosis type: unspecified End stage renal disease N18.6 Cognitive disorder F09 (3) Leukocytosis Leukocytosis type: unspecified Qualified Code(s): D72.829 - Elevated white blood cell count, unspecified
[2023-11-14 10:05] LABS: Hematocrit (blood only) 30.6 % (42.0-52.0); Mean Corpuscular Hemoglobin 31.2 pg (25.0-34.0); Mean Corpuscular Hgb Conc 32.7 g/dL (32.0-36.0); Mean Corpuscular Volume 95.3 fL (80.0-100.0); Mean Platelet Volume 8.8 fL (9.4-12.4); Platelet Count 190 K/uL (130-400); RDW Coefficient of Variation 15.1 % (11.5-14.5); Red Blood Count 3.21 M/uL (4.70-6.10); White Blood Count 7.99 K/ul (4.8-10.8)
[2023-11-14 10:17] LABS: BUN Creatinine Ratio 15.4 (10-20); Calcium 9.1 mg/dl (8.6-10.3); Creatinine Clr Calc Pharmacy 22.4 ml/min; Est GFR (African American) 18.3 ml/min; Est GFR (Non-African American) 15.8 ml/min; Potassium 4.1 mmol/L (3.5-5.1)
--- NOTE | 2023-11-14 11:21 | Nephrology Progress Note ---
Date of Service November 14, 2023 Assessment & Plan (1) End stage renal disease: Plan: * ESKD due to DKD. Started HD 10/23/23 via Rt arm AV fistula (placed 04/12/2023 with transposition in July). * Maintained on HD MWF. Primary detail drafter is Dr. Alejandro. * No acute indication for HD today. Will plan next HD for am (2) Anemia: Plan: * Hgb 10.0 * Will provide HARMONY w/ HD (3) Secondary hyperparathyroidism of renal origin: Plan: * Continue calcitriol 0.25 QAM. Renvela 1 tab QAC. Low phosphorus diet. (4) Hypertension: Plan: * BP is acceptable. Continue amlodipine and furosemide Admission and Anticipated Discharge Date Admission Date: October 17, 2023 Subjective Mr. Miles was evaluated in his hospital room this morning. He was dialyzed yesterday for 1 L UF without complication. He remains physically active walking the hallways w/ PT. He is awaiting transfer to long care nursing facility Review of Systems Constitutional: no fever Eyes: no problem reported Ear, Nose, Mouth, Throat: no problem reported Respiratory: no cough and no dyspnea Cardiovascular: no chest pain Gastrointestinal: no abdominal pain, no nausea, no vomiting and no diarrhea/loose stools Integumentary: no rash Physical Exam Constitutional: not in distress Eyes: PERRL, conjunctivae normal, anicteric sclerae ENMT: external ear and nose normal, oropharynx normal Neck: trachea midline, no thyromegaly Respiratory: normal respiratory effort, lungs clear to auscultation Cardiovascular: Rate/Rhythm: regular rate and regular rhythm Extremities: + AV fistula (Positive bruit); no edema Gastrointestinal (Abdomen): normal bowel sounds, soft, nontender, no hepatosplenomegaly Skin: no rashes, warm and dry Neurologic: Speech / Cognition: normal speech Results & Data Vital Signs (Past 12 Hours) Vital Signs Temp Pulse Resp BP Pulse Ox O2 Del Method 11/14/23 07:48 37.1 C 82 16 122/66 96 Room Air Diagnostic Findings Laboratory Results - last 24 hr 11/13/23 11/13/23 11/13/23 13:28 16:35 20:38 WBC RBC Hgb Hct MCV MCH MCHC RDW Std Deviation RDW Coeff of Vinay Plt Count MPV Sodium Potassium Chloride Carbon Dioxide Anion Gap BUN Creatinine Est Cr Clr Drug Dosing Est GFR ( Amer) Est GFR (Non-Af Amer) BUN/Creatinine Ratio Glucose POC Glucose 95 204 H 229 H Calcium 11/14/23 11/14/23 07:41 09:33 WBC 7.99 RBC 3.21 L Hgb 10.0 L Hct 30.6 L MCV 95.3 MCH 31.2 MCHC 32.7 RDW Std Deviation 51.0 H RDW Coeff of Vinay 15.1 H Plt Count 190 MPV 8.8 L Sodium 138 Potassium 4.1 Chloride 103 Carbon Dioxide 27 Anion Gap 8 BUN 59 H Creatinine 3.82 H Est Cr Clr Drug Dosing 22.4 Est GFR ( Amer) 18.3 Est GFR (Non-Af Amer) 15.8 BUN/Creatinine Ratio 15.4 Glucose 191 H POC Glucose 122 H Calcium 9.1 PG Care Time/CCT Total # of Minutes Spent Total Time Spent with Patient: Total time spent is greater than 50% in coordination of care (as documented) at patient's floor/unit and/or counseling patient: Coding Level of Care Code 26837 SUB INP/OBS CARE 3/50MIN Diagnoses End stage renal disease N18.6 Anemia D64.9 Secondary hyperparathyroidism of renal origin N25.81 Hypertension I10
--- NOTE | 2023-11-14 16:53 | Hospitalist Progress Note ---
Date of Service November 14, 2023 Assessment & Plan (1) Acute kidney injury superimposed on stage 5 chronic kidney disease, not on chronic dialysis: Plan: A 62 yo male PMHx intellectual disability, CKD-V not yet on NEUROLOGY TECHNOLOGIST at time of admission, T2DM on insulin, ISAAK not on CPAP, secondary hyperparathyroidism, admitted after an episode of hypoglycemia as well as nausea and vomiting. initiated hemodialysis this admission #Presented with KIRK on CKD-5 not on dialysis. 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 Progressed to ESRD and initiated hemodialysis this admission hemodialysis initiated this admission (10/22, 10/23, 10/24) - tolerating well. Nain nue 3x/wk. MWF cloth finishing range operator consulting - continue calcitriol - continue Renvela and Nephrocaps, Lasix 40 Mg daily access: SUKHDEV ABDI, outpatient cloth finishing range operator: Dr. Alejandro awaiting appropriate disposition and outpatient dialysis appointment Also with anemia of CKD - epogen and PO Fe per nephrology (2) Hypoglycemia due to type 2 diabetes mellitus: Plan: Jardiance has been discontinued. Home dose lantus is 20units Does have CGM at home, presented with hypoglycemia (reported down to 29 at home) - continue basal bolus insulin 16 units of glargine plus Premeal aspart - 11/10 CF reduced from 22 to 18 better control with recent adjustments (3) Leukocytosis: Plan: Unclear source initially up to 20,000 stress response related to vomiting, however mild leukocytosis persists but improving - CXR/procal/UA/COVID/flu/rsv negative - possible he had some aspiration pneumonitis at the time of admission related to his vomiting and inflammation is taking some time to resolve Remains asymptomatic, no fevers, hypoxia or focal symptoms. Peripheral smear Path: no infectious signs, cause of leukocytosis left for clinical correlation. (4) End stage renal disease: Plan: Started on 3x/week dialysis this admission as above (5) Cognitive disorder: Plan: Pt having increasing difficulty caring for himself Has caregivers in during the day but alone overnight POAs are sisters and they are interested in termite technician placement for him at this time Plan is termite technician placement, CM following Plan Chronic stable medical problems: * anxiety - continue buspar * BPH - continue flomax * HTN - continue amlodipine, control improved with serial HD Code status: full code DVT prophylaxis: heparin SQ Disposition: Plan is for placement, He will need to establish outpatient dialysis chair prior to discharge. Please call sisters with updates: Ban ; Renay Admission and Anticipated Discharge Date Admission Date: October 17, 2023 Supervising Physician Co-Signing Physician Notes Attending Attestation - Chart reviewed, care plan d/w MANISHA Richards. I agree w/ the benitez components of her documentation. Appreciate ongoing assistance by nephrology for HD needs. Appreciate ongoing assistance by social work to secure disposition. Jun Arnold MD Subjective Patient seen after breakfast, had walked the halls with PT No acute complaints has good insight to the current situation Review of Systems Review of Systems: All systems reviewed & are unremarkable except as noted in Subjective Physical Exam Physical Exam: General: NAD, VS as above, sitting at the side of bed, pleasant Resp: normal respiratory effort, lungs clear to auscultation CV: RRR, no murmur, Extremities: Moves all extremities, dialysis fistula right arm Neuro: A&O x3, Results & Data Results & Data Vital Signs (Past 12 Hours) Vital Signs Temp Pulse Resp BP Pulse Ox O2 Del Method 11/14/23 15:17 36.7 C 77 16 143/71 H 99 Room Air 11/14/23 07:48 37.1 C 82 16 122/66 96 Room Air Laboratory Results POC glucose reviewed PG Care Time/CCT Total # of Minutes Spent Total Time Spent with Patient: Total time spent is greater than 50% in coordination of care (as documented) at patient's floor/unit and/or counseling patient: Coding Level of Care Code 94235 SUB INP/OBS CARE /25MIN Diagnoses Acute kidney injury superimposed on stage 5 chronic kidney disease, not on chronic dialysis N17.9; N18.5 Hypoglycemia due to type 2 diabetes mellitus E11.649 Leukocytosis, unspecified type D72.829 Leukocytosis type: unspecified End stage renal disease N18.6 Cognitive disorder F09 (3) Leukocytosis Leukocytosis type: unspecified Qualified Code(s): D72.829 - Elevated white blood cell count, unspecified
[2023-11-15] MEDS ORDERED: SODIUM CHLORIDE 0.9% 1,000 ML IV PRN (07:00)
--- NOTE | 2023-11-15 09:06 | Nephrology Progress Note ---
Date of Service November 15, 2023 Assessment & Plan (1) End stage renal disease: Plan: * ESKD due to DKD. Started HD 10/23/23 via Rt arm AV fistula (placed 04/12/2023 with transposition in July). * Maintained on HD MWF. Primary pharmacy operations specialist is Dr. Alejandro. * Plan HD today x 3.5 hrs, attempt 2 L UF (2) Anemia: Plan: * Hgb 10.0 * Will provide HARMONY w/ HD (3) Secondary hyperparathyroidism of renal origin: Plan: * Continue calcitriol 0.25 QAM. Renvela 1 tab QAC. Low phosphorus diet. (4) Hypertension: Plan: * BP is acceptable. Continue amlodipine and furosemide Admission and Anticipated Discharge Date Admission Date: October 17, 2023 Subjective Mr. Miles was evaluated in his hospital room this morning. He remains physically active walking the hallways w/ PT. Mr. Miles voices no new medical concerns. He is awaiting transfer to [facility] Review of Systems Constitutional: no fever Eyes: no problem reported Ear, Nose, Mouth, Throat: no problem reported Respiratory: no cough and no dyspnea Cardiovascular: no chest pain Gastrointestinal: no abdominal pain, no nausea, no vomiting and no diarrhea/loose stools Integumentary: no rash Physical Exam Constitutional: not in distress Eyes: PERRL, conjunctivae normal, anicteric sclerae ENMT: external ear and nose normal, oropharynx normal Neck: trachea midline, no thyromegaly Respiratory: normal respiratory effort, lungs clear to auscultation Cardiovascular: Rate/Rhythm: regular rate and regular rhythm Extremities: + AV fistula (Positive bruit); no edema Gastrointestinal (Abdomen): normal bowel sounds, soft, nontender, no hepatosplenomegaly Skin: no rashes, warm and dry Neurologic: Speech / Cognition: normal speech Results & Data Vital Signs (Past 12 Hours) Vital Signs Temp Pulse Pulse Resp BP Pulse Ox O2 Del Method 11/15/23 08:13 36.9 C 78 20 137/66 98 Room Air 11/15/23 07:11 36.7 C 79 16 137/69 98 Room Air 11/14/23 23:22 36.1 C L 83 18 157/78 H 97 Room Air Laboratory Results Laboratory Results - last 24 hr 11/14/23 11/14/23 11/14/23 09:33 11:51 16:45 WBC 7.99 RBC 3.21 L Hgb 10.0 L Hct 30.6 L MCV 95.3 MCH 31.2 MCHC 32.7 RDW Std Deviation 51.0 H RDW Coeff of Vinay 15.1 H Plt Count 190 MPV 8.8 L Sodium 138 Potassium 4.1 Chloride 103 Carbon Dioxide 27 Anion Gap 8 BUN 59 H Creatinine 3.82 H Est Cr Clr Drug Dosing 22.4 Est GFR ( Amer) 18.3 Est GFR (Non-Af Amer) 15.8 BUN/Creatinine Ratio 15.4 Glucose 191 H POC Glucose 170 H 96 Calcium 9.1 11/14/23 11/15/23 20:33 07:35 WBC RBC Hgb Hct MCV MCH MCHC RDW Std Deviation RDW Coeff of Vinay Plt Count MPV Sodium Potassium Chloride Carbon Dioxide Anion Gap BUN Creatinine Est Cr Clr Drug Dosing Est GFR ( Amer) Est GFR (Non-Af Amer) BUN/Creatinine Ratio Glucose POC Glucose 159 H 130 H Calcium PG Care Time/CCT Total # of Minutes Spent Total Time Spent with Patient: Total time spent is greater than 50% in coordination of care (as documented) at patient's floor/unit and/or counseling patient: Coding Level of Care Code 29823 SUB INP/OBS CARE 3/50MIN Diagnoses End stage renal disease N18.6 Anemia D64.9 Secondary hyperparathyroidism of renal origin N25.81 Hypertension I10
--- NOTE | 2023-11-15 12:54 | Hospitalist Progress Note ---
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 initiated hemodialysis this admission #Presented with KIRK on CKD-5 not on dialysis. 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 Progressed to ESRD and initiated hemodialysis this admission hemodialysis initiated this admission (10/22, 10/23, 10/24) - tolerating well. Nain nue 3x/wk. MWF retail sales consultant consulting - continue calcitriol - continue Renvela and Nephrocaps, Lasix 40 Mg daily access: SUKHDEV ABDI, outpatient retail sales consultant: Dr. Alejandro awaiting appropriate disposition and outpatient dialysis appointment Also with anemia of CKD - epogen and PO Fe per nephrology (2) Hypoglycemia due to type 2 diabetes mellitus: Plan: Jardiance has been discontinued. Home dose lantus is 20units Does have CGM at home, presented with hypoglycemia (reported down to 29 at home) - continue basal bolus insulin 16 units of glargine plus Premeal aspart - 11/10 CF reduced from 22 to 18 better control with recent adjustments (3) Leukocytosis: Plan: Unclear source initially up to 20,000 stress response related to vomiting, however mild leukocytosis persists but improving - CXR/procal/UA/COVID/flu/rsv negative - possible he had some aspiration pneumonitis at the time of admission related to his vomiting and inflammation is taking some time to resolve Remains asymptomatic, no fevers, hypoxia or focal symptoms. Peripheral smear Path: no infectious signs, cause of leukocytosis left for clinical correlation. (4) End stage renal disease: Plan: Started on 3x/week dialysis this admission as above (5) Cognitive disorder: Plan: Pt having increasing difficulty caring for himself Has caregivers in during the day but alone overnight POAs are sisters and they are interested in watermelon harvesting supervisor placement for him at this time Plan is watermelon harvesting supervisor placement, CM following Plan Chronic stable medical problems: * anxiety - continue buspar * BPH - continue flomax * HTN - continue amlodipine, control improved with serial HD Code status: full code DVT prophylaxis: heparin SQ Disposition: Plan is for placement, He will need to establish outpatient dialysis chair prior to discharge. Please call sisters with updates: Ban ; Renay Admission and Anticipated Discharge Date Admission Date: October 17, 2023 Supervising Physician Co-Signing Physician Notes Attending Attestation - Chart reviewed, care plan d/w MANISHA Richards. I agree w/ the benitez components of her documentation. Appreciate ongoing assistance by nephrology for HD needs. Appreciate ongoing assistance by social work to secure disposition. Jun Arnold MD Subjective patient seen sititng in the chair just prior to lunch. No acute complaints watching the construction workers outside dialysis moved to afternoon Review of Systems Review of Systems: All systems reviewed & are unremarkable except as noted in Subjective Physical Exam Physical Exam: General: NAD, VS as above, sitting at the side of bed, pleasant Resp: normal respiratory effort, lungs clear to auscultation CV: RRR, no murmur, Extremities: Moves all extremities, dialysis fistula right arm Neuro: A&O x3, Results & Data Results & Data Vital Signs (Past 12 Hours) Vital Signs Temp Pulse Pulse Resp BP Pulse Ox O2 Del Method 11/15/23 11:37 37 C 76 20 150/72 H 100 Room Air 11/15/23 08:13 36.9 C 78 20 137/66 98 Room Air 11/15/23 07:11 36.7 C 79 16 137/69 98 Room Air Laboratory Results POC glucose reviewed PG Care Time/CCT Total # of Minutes Spent Total Time Spent with Patient: Total time spent is greater than 50% in coordination of care (as documented) at patient's floor/unit and/or counseling patient: Coding Level of Care Code 19816 SUB INP/OBS CARE 2/35MIN Diagnoses Acute kidney injury superimposed on stage 5 chronic kidney disease, not on chronic dialysis N17.9; N18.5 Hypoglycemia due to type 2 diabetes mellitus E11.649 Leukocytosis, unspecified type D72.829 Leukocytosis type: unspecified End stage renal disease N18.6 Cognitive disorder F09 (3) Leukocytosis Leukocytosis type: unspecified Qualified Code(s): D72.829 - Elevated white blood cell count, unspecified
[2023-11-15] MEDS: HEPARIN SOD (PORCINE) 1000 UNIT/ML IV ONE (15:22)
[2023-11-15] MEDS: EPOETIN ALFA 10,000 UNITS/ML VIAL IV ONE (15:22)
--- NOTE | 2023-11-16 09:08 | Nephrology Progress Note ---
Date of Service November 16, 2023 Assessment & Plan (1) End stage renal disease: Plan: * ESKD due to DKD. Started HD 10/23/23 via Rt arm AV fistula (placed 04/12/2023 with transposition in July). * Maintained on HD MWF. Primary sack department supervisor is Dr. Alejandro. * Hold HD today due to AVF infiltration. I have asked medical staff services manager to provide an ice pack for application to AVF venous limb * Will schedule next HD for am (2) Anemia: Plan: * Hgb 10.0 * Will provide HARMONY w/ HD (3) Secondary hyperparathyroidism of renal origin: Plan: * Continue calcitriol 0.25 QAM. Renvela 1 tab QAC. Low phosphorus diet. (4) Hypertension: Plan: * BP is acceptable. Continue amlodipine and furosemide Admission and Anticipated Discharge Date Admission Date: October 17, 2023 Subjective Mr. Miles was evaluated in his hospital room this morning. He remains physically active walking the hallways w/ PT. Mr. Miles voices no new medical concerns. He is awaiting transfer to long care nursing facility. Only one hour HD provided yesterday due to AVF infiltration. Review of Systems Constitutional: no fever Eyes: no problem reported Ear, Nose, Mouth, Throat: no problem reported Respiratory: no cough and no dyspnea Cardiovascular: no chest pain Gastrointestinal: no abdominal pain, no nausea, no vomiting and no diarrhea/loose stools Integumentary: no rash Physical Exam Constitutional: not in distress Eyes: PERRL, conjunctivae normal, anicteric sclerae ENMT: external ear and nose normal, oropharynx normal Neck: trachea midline, no thyromegaly Respiratory: normal respiratory effort, lungs clear to auscultation Cardiovascular: Rate/Rhythm: regular rate and regular rhythm Extremities: + AV fistula (Positive bruit, ecchymosis surrounding venous limb); no edema Gastrointestinal (Abdomen): normal bowel sounds, soft, nontender, no hepatosplenomegaly Skin: no rashes, warm and dry Neurologic: Speech / Cognition: normal speech Results & Data Vital Signs (Past 12 Hours) Vital Signs Temp Pulse Resp BP Pulse Ox O2 Del Method 11/16/23 07:16 36.8 C 76 18 121/70 98 Room Air Laboratory Results Laboratory Results - last 24 hr 11/15/23 11/15/23 11/15/23 11:29 16:26 20:48 WBC RBC Hgb Hct MCV MCH MCHC RDW Std Deviation RDW Coeff of Vinay Plt Count MPV Sodium Potassium Chloride Carbon Dioxide Anion Gap BUN Creatinine Est Cr Clr Drug Dosing Est GFR ( Amer) Est GFR (Non-Af Amer) BUN/Creatinine Ratio Glucose POC Glucose 183 H 117 H 111 H Calcium 11/16/23 11/16/23 07:26 08:30 WBC 9.68 RBC 3.22 L Hgb 10.0 L Hct 30.7 L MCV 95.3 MCH 31.1 MCHC 32.6 RDW Std Deviation 50.8 H RDW Coeff of Vinay 14.7 H Plt Count 193 MPV 8.9 L Sodium 137 Potassium 4.0 Chloride 103 Carbon Dioxide 23 Anion Gap 11 BUN 74 H Creatinine 4.39 H D Est Cr Clr Drug Dosing 19.5 Est GFR ( Amer) 15.5 Est GFR (Non-Af Amer) 13.3 BUN/Creatinine Ratio 16.9 Glucose 129 H POC Glucose 123 H Calcium 9.3 PG Care Time/CCT Total # of Minutes Spent Total Time Spent with Patient: Total time spent is greater than 50% in coordination of care (as documented) at patient's floor/unit and/or counseling patient: Coding Level of Care Code 62186 SUB INP/OBS CARE 3/50MIN Diagnoses End stage renal disease N18.6 Anemia D64.9 Secondary hyperparathyroidism of renal origin N25.81 Hypertension I10
[2023-11-16 09:11] LABS: Hematocrit (blood only) 30.7 % (42.0-52.0); Mean Corpuscular Hemoglobin 31.1 pg (25.0-34.0); Mean Corpuscular Hgb Conc 32.6 g/dL (32.0-36.0); Mean Corpuscular Volume 95.3 fL (80.0-100.0); Mean Platelet Volume 8.9 fL (9.4-12.4); Platelet Count 193 K/uL (130-400); RDW Coefficient of Variation 14.7 % (11.5-14.5); RDW Standard Deviation 50.8 fL (36.4-46.3); Red Blood Count 3.22 M/uL (4.70-6.10); White Blood Count 9.68 K/ul (4.8-10.8)
[2023-11-16 09:30] LABS: BUN Creatinine Ratio 16.9 (10-20); Calcium 9.3 mg/dl (8.6-10.3); Creatinine Clr Calc Pharmacy 19.5 ml/min; Est GFR (African American) 15.5 ml/min; Est GFR (Non-African American) 13.3 ml/min
--- NOTE | 2023-11-16 14:09 | Hospitalist Progress Note ---
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 initiated hemodialysis this admission #Presented with KIRK on CKD-5 not on dialysis. 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 Progressed to ESRD and initiated hemodialysis this admission hemodialysis initiated this admission (10/22, 10/23, 10/24) - tolerating well. Nain nue 3x/wk. MWF software design manager consulting - continue calcitriol - continue Renvela and Nephrocaps, Lasix 40 Mg daily access: SUKHDEV ABDI, outpatient software design manager: Dr. Alejandro awaiting appropriate disposition and outpatient dialysis appointment Also with anemia of CKD - epogen and PO Fe per nephrology (2) Hypoglycemia due to type 2 diabetes mellitus: Plan: Jardiance has been discontinued. Home dose lantus is 20units Does have CGM at home, presented with hypoglycemia (reported down to 29 at home) - continue basal bolus insulin 16 units of glargine plus Premeal aspart - 11/10 CF reduced from 22 to 18 better control with recent adjustments (3) Leukocytosis: Plan: Unclear source initially up to 20,000 stress response related to vomiting, however mild leukocytosis persists but improving - CXR/procal/UA/COVID/flu/rsv negative - possible he had some aspiration pneumonitis at the time of admission related to his vomiting and inflammation is taking some time to resolve Remains asymptomatic, no fevers, hypoxia or focal symptoms. Peripheral smear Path: no infectious signs, cause of leukocytosis left for clinical correlation. resolved. (4) End stage renal disease: Plan: Started on 3x/week dialysis this admission as above (5) Cognitive disorder: Plan: Pt having increasing difficulty caring for himself Has caregivers in during the day but alone overnight POAs are sisters and they are interested in nursing home placement for him at this time Plan is termite exterminator helper placement, CM following Plan Chronic stable medical problems: * anxiety - continue buspar * BPH - continue flomax * HTN - continue amlodipine, control improved with serial HD Code status: full code DVT prophylaxis: heparin SQ Disposition: Plan is for placement, He will need to establish outpatient dialysis chair prior to discharge. Please call sisters with updates: Ban ; Renay Admission and Anticipated Discharge Date Admission Date: October 17, 2023 Supervising Physician Co-Signing Physician Notes Attending Attestation - Chart reviewed, care plan d/w MANISHA Richards. I agree w/ the benitez components of her documentation. Jun Arnold MD Subjective patient had a shortened dialysis run yesterday due to infiltration. Had to move rooms due to his roommate. Overall he is feeling well, just taking it 1 day at a time Excited about visitors that came this afternoon. Review of Systems Review of Systems: All systems reviewed & are unremarkable except as noted in Subjective Physical Exam Physical Exam: General: NAD, VS as above, sitting at the side of bed, pleasant Resp: normal respiratory effort, lungs clear to auscultation CV: RRR, no murmur, Extremities: Moves all extremities, dialysis fistula right arm, Little swollen compared to usual Neuro: A&O x3, Results & Data Results & Data Vital Signs (Past 12 Hours) Vital Signs Temp Pulse Resp BP Pulse Ox O2 Del Method 11/16/23 07:16 36.8 C 76 18 121/70 98 Room Air Laboratory Results [id number] glucose reviewed, CBC and chemistry reviewed PG Care Time/CCT Total # of Minutes Spent Total Time Spent with Patient: Total time spent is greater than 50% in coordination of care (as documented) at patient's floor/unit and/or counseling patient: Coding Level of Care Code 40889 SUB INP/OBS CARE /25MIN Diagnoses Acute kidney injury superimposed on stage 5 chronic kidney disease, not on chronic dialysis N17.9; N18.5 Hypoglycemia due to type 2 diabetes mellitus E11.649 Leukocytosis, unspecified type D72.829 Leukocytosis type: unspecified End stage renal disease N18.6 Cognitive disorder F09 (3) Leukocytosis Leukocytosis type: unspecified Qualified Code(s): D72.829 - Elevated white blood cell count, unspecified
[2023-11-17] MEDS: ACETAMINOPHEN 325 MG TAB PO PRN (03:53)
[2023-11-17] MEDS ORDERED: SODIUM CHLORIDE 0.9% 1,000 ML IV PRN (07:00)
[2023-11-17] MEDS ORDERED: GLUCAGON FOR INJ 1 MG VIAL SQ PRN (08:15)
[2023-11-17] MEDS ORDERED: DOCUSATE SODIUM 100 MG CAP PO PRN (08:15)
[2023-11-17] MEDS ORDERED: DEXTROSE 50% 50 ML SYRINGE IV PRN (08:15)
[2023-11-17] MEDS ORDERED: GLUCOSE 10 TAB/TUBE PO PRN (08:15)
[2023-11-17] MEDS ORDERED: GLUCOSE 40% GEL 15 GM TUBE PO PRN (08:15)
[2023-11-17] MEDS ORDERED: CARBOHYDRATES FOR HYPOGLYCEMIA PO PRN (08:15)
--- NOTE | 2023-11-17 08:51 | Nephrology Progress Note ---
Date of Service November 17, 2023 Assessment & Plan (1) End stage renal disease: Plan: * ESKD due to DKD. Started HD 10/23/23 via Rt arm AV fistula (placed 04/12/2023 with transposition in July). * HD today. AVF functioning well. Will attempt 1-2 L UF (2) Anemia: Plan: * Hgb 10.0 * Will provide HARMONY w/ HD (3) Secondary hyperparathyroidism of renal origin: Plan: * Continue calcitriol 0.25 QAM. Renvela 1 tab QAC. Low phosphorus diet. (4) Hypertension: Plan: * BP is acceptable. Continue amlodipine and furosemide (5) Cognitive disorder: Plan: * Learning disabled. Requires assistance w/ ADL's * Case management working to obtain MA for termite exterminator care facility Admission and Anticipated Discharge Date Admission Date: October 17, 2023 Subjective Mr. Miles was evaluated prior to and during HD. He voiced no new medical concerns. He is awaiting transfer to long care nursing facility. greenhouse staff reports they were able to easily cannulate AVF this am Review of Systems Constitutional: no fever Eyes: no problem reported Ear, Nose, Mouth, Throat: no problem reported Respiratory: no cough and no dyspnea Cardiovascular: no chest pain Gastrointestinal: no abdominal pain, no nausea, no vomiting and no diarrhea/loose stools Integumentary: no rash Physical Exam Constitutional: not in distress Eyes: PERRL, conjunctivae normal, anicteric sclerae ENMT: external ear and nose normal, oropharynx normal Neck: trachea midline, no thyromegaly Respiratory: normal respiratory effort, lungs clear to auscultation Cardiovascular: Rate/Rhythm: regular rate and regular rhythm Extremities: + AV fistula (Positive bruit, ecchymosis surrounding venous limb); no edema Gastrointestinal (Abdomen): normal bowel sounds, soft, nontender, no hepatosplenomegaly Skin: no rashes, warm and dry Neurologic: Speech / Cognition: normal speech Results & Data Vital Signs (Past 12 Hours) Vital Signs Temp Pulse Pulse Resp BP Pulse Ox O2 Del Method 11/17/23 08:03 36.7 C 78 16 154/74 H 100 Room Air 11/16/23 22:53 36.6 C 83 18 138/69 99 Room Air Laboratory Results Laboratory Results - last 24 hr 11/16/23 11/16/23 11/16/23 08:30 11:29 16:14 WBC 9.68 RBC 3.22 L Hgb 10.0 L Hct 30.7 L MCV 95.3 MCH 31.1 MCHC 32.6 RDW Std Deviation 50.8 H RDW Coeff of Vinay 14.7 H Plt Count 193 MPV 8.9 L Sodium 137 Potassium 4.0 Chloride 103 Carbon Dioxide 23 Anion Gap 11 BUN 74 H Creatinine 4.39 H D Est Cr Clr Drug Dosing 19.5 Est GFR ( Amer) 15.5 Est GFR (Non-Af Amer) 13.3 BUN/Creatinine Ratio 16.9 Glucose 129 H POC Glucose 162 H 134 H Calcium 9.3 11/16/23 11/17/23 20:28 07:40 WBC RBC Hgb Hct MCV MCH MCHC RDW Std Deviation RDW Coeff of Vinay Plt Count MPV Sodium Potassium Chloride Carbon Dioxide Anion Gap BUN Creatinine Est Cr Clr Drug Dosing Est GFR ( Amer) Est GFR (Non-Af Amer) BUN/Creatinine Ratio Glucose POC Glucose 153 H 77 Calcium PG Care Time/CCT Total # of Minutes Spent Total Time Spent with Patient: Total time spent is greater than 50% in coordination of care (as documented) at patient's floor/unit and/or counseling patient: Coding Level of Care Code 31676 SUB INP/OBS CARE 3/50MIN Diagnoses End stage renal disease N18.6 Anemia D64.9 Secondary hyperparathyroidism of renal origin N25.81 Hypertension I10 Cognitive disorder F09
[2023-11-17] MEDS: EPOETIN ALFA 10,000 UNITS/ML VIAL IV ONE (10:24)
--- NOTE | 2023-11-17 12:20 | Hospitalist Progress Note ---
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 initiated hemodialysis this admission #Presented with KIRK on CKD-5 not on dialysis. 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 Progressed to ESRD and initiated hemodialysis this admission hemodialysis initiated this admission (10/22, 10/23, 10/24) - tolerating well. Nain nue 3x/wk. [facility] link and link knitting machine operator consulting - continue calcitriol - continue Nephrocaps, Lasix 40 Mg daily -*Sevelamer swithced to Calcium acetate 11/16 due to difficulty swallowing access: SUKHDEV ABDI, outpatient link and link knitting machine operator: Dr. Alejandro awaiting appropriate disposition and outpatient dialysis appointment Also with anemia of CKD - epogen and PO Fe per nephrology (2) Hypoglycemia due to type 2 diabetes mellitus: Plan: Jardiance has been discontinued. Home dose lantus is 20units Does have CGM at home, presented with hypoglycemia (reported down to 29 at home) - continue basal bolus insulin 16 units of glargine plus Premeal aspart - 11/10 CF reduced from 22 to 18 better control with recent adjustments (3) Leukocytosis: Plan: Unclear source initially up to 20,000 stress response related to vomiting, however mild leukocytosis persists but improving - CXR/procal/UA/COVID/flu/rsv negative - possible he had some aspiration pneumonitis at the time of admission related to his vomiting and inflammation is taking some time to resolve Remains asymptomatic, no fevers, hypoxia or focal symptoms. Peripheral smear Path: no infectious signs, cause of leukocytosis left for clinical correlation. resolved. (4) End stage renal disease: Plan: Started on 3x/week dialysis this admission as above (5) Cognitive disorder: Plan: Pt having increasing difficulty caring for himself Has caregivers in during the day but alone overnight POAs are sisters and they are interested in terminal computer operator placement for him at this time Plan is terminal computer operator placement, CM following Plan Chronic stable medical problems: * anxiety - continue buspar * BPH - continue flomax * HTN - continue amlodipine, control improved with serial HD Code status: full code DVT prophylaxis: heparin SQ Disposition: Plan is for placement, He will need to establish outpatient dialysis chair prior to discharge. Please call sisters with updates: Ban ; Renay Admission and Anticipated Discharge Date Admission Date: October 17, 2023 Supervising Physician Co-Signing Physician Notes Attending Attestation - Chart reviewed, care plan d/w MANISHA Richards. I agree w/ the benitez components of her documentation. Jun Arnold MD Subjective patient seen during dialysis. No acute complaints excited to watch football this weekend appreciative of the visitors he had yesterday Physical Exam Physical Exam: General: NAD, VS as above, lying in bed Resp: normal respiratory effort, lungs clear to auscultation CV: RRR, no murmur, Extremities: Moves all extremities, dialysis fistula right arm, Neuro: A&O x3, Results & Data Results & Data Vital Signs (Past 12 Hours) Vital Signs Temp Pulse Pulse Pulse Resp BP BP 11/17/23 12:00 85 106/52 L 11/17/23 11:30 80 114/60 11/17/23 11:00 83 117/64 11/17/23 10:30 79 123/64 11/17/23 10:00 80 121/63 11/17/23 09:30 81 131/68 11/17/23 09:25 81 132/62 11/17/23 09:17 36.6 C 81 11/17/23 08:03 36.7 C 78 16 154/74 H Pulse Ox O2 Del Method 11/17/23 12:00 11/17/23 11:30 11/17/23 11:00 11/17/23 10:30 11/17/23 10:00 11/17/23 09:30 11/17/23 09:25 11/17/23 09:17 11/17/23 08:03 100 Room Air Laboratory Results POC glucose reviewed PG Care Time/CCT Total # of Minutes Spent Total Time Spent with Patient: Total time spent is greater than 50% in coordination of care (as documented) at patient's floor/unit and/or counseling patient: Coding Level of Care Code 92423 SUB INP/OBS CARE 2/35MIN Diagnoses Acute kidney injury superimposed on stage 5 chronic kidney disease, not on chronic dialysis N17.9; N18.5 Hypoglycemia due to type 2 diabetes mellitus E11.649 Leukocytosis, unspecified type D72.829 Leukocytosis type: unspecified End stage renal disease N18.6 Cognitive disorder F09 (3) Leukocytosis Leukocytosis type: unspecified Qualified Code(s): D72.829 - Elevated white blood cell count, unspecified
[2023-11-17] MEDS: busPIRone 15 MG TAB PO SCH (13:26)
[2023-11-17] MEDS: INSULIN ASPART PER UNIT CHARGE SC SCH (14:30)
[2023-11-17] MEDS: CALCIUM ACETATE 667 MG CAP/TAB PO SCH (17:14)
[2023-11-18 06:27] LABS: Hematocrit (blood only) 30.8 % (42.0-52.0); Mean Corpuscular Hemoglobin 31.2 pg (25.0-34.0); Mean Corpuscular Hgb Conc 32.5 g/dL (32.0-36.0); Mean Platelet Volume 9.1 fL (9.4-12.4); Platelet Count 179 K/uL (130-400); RDW Coefficient of Variation 14.6 % (11.5-14.5); RDW Standard Deviation 50.6 fL (36.4-46.3); Red Blood Count 3.21 M/uL (4.70-6.10); White Blood Count 9.61 K/ul (4.8-10.8)
[2023-11-18 06:43] LABS: BUN Creatinine Ratio 14.3 (10-20); Est GFR (African American) 17.8 ml/min; Est GFR (Non-African American) 15.3 ml/min; Potassium 4.1 mmol/L (3.5-5.1)
--- NOTE | 2023-11-18 09:09 | Hospitalist Progress Note ---
Date of Service November 18, 2023 Assessment & Plan (1) End stage renal disease: Plan: 62 yo male PMHx intellectual disability, CKD-V not yet on COMMUNICATIONS PLANNER at time of admission, T2DM on insulin, ISAAK not on CPAP, secondary hyperparathyroidism, admitted after an episode of hypoglycemia as well as nausea and vomiting. initiated hemodialysis this admission Presented with KIRK on CKD-5 not on dialysis on presentation. 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 Progressed to ESRD and initiated hemodialysis this admission. - Hemodialysis initiated this admission (10/22, 10/23, 10/24) - tolerating well. Continue 3x/wk. MWF - Dough Molder Hand consulting > Continue calcitriol > Continue Nephrocaps, Lasix 40 Mg daily > Sevelamer swithced to Calcium acetate 11/16 due to difficulty swallowing > Also with anemia of CKD - epogen and PO Fe per nephrology > Access: RUE AVF, outpatient home care chaplain: Dr. Alejandro - Awaiting appropriate disposition and outpatient dialysis appointment (2) Acute kidney injury superimposed on stage 5 chronic kidney disease, not on chronic dialysis: Plan: 62 yo male PMHx intellectual disability, CKD-V not yet on COMMUNICATIONS PLANNER at time of admission, T2DM on insulin, ISAAK not on CPAP, secondary hyperparathyroidism, admitted after an episode of hypoglycemia as well as nausea and vomiting. initiated hemodialysis this admission Presented with KIRK on CKD-5 not on dialysis on presentation. 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 Progressed to ESRD and initiated hemodialysis this admission. - Hemodialysis initiated this admission (10/22, 10/23, 10/24) - tolerating well. Continue 3x/wk. MWF - Dough Molder Hand consulting > Continue calcitriol > Continue Nephrocaps, Lasix 40 Mg daily > Sevelamer swithced to Calcium acetate 11/16 due to difficulty swallowing > Also with anemia of CKD - epogen and PO Fe per nephrology > Access: RUE AVF, outpatient home care chaplain: Dr. Alejandro - Awaiting appropriate disposition and outpatient dialysis appointment (3) Hypoglycemia due to type 2 diabetes mellitus: Plan: Jardiance has been discontinued. Home dose lantus is 20units Does have CGM at home, presented with hypoglycemia (reported down to 29 at home) - Continue basal bolus insulin 16 units of glargine plus Premeal aspart - 11/10 CF reduced from 22 to 18 - Better control noted with recent adjustments (4) Leukocytosis: Plan: Unclear source, initially up to 20,000, stress response related to vomiting - CXR/procal/UA/COVID/flu/rsv negative - Possible he had some aspiration pneumonitis at the time of admission related to his vomiting and inflammation is taking some time to resolve - Remains asymptomatic, no fevers, hypoxia or focal symptoms. - Peripheral smear Path: no infectious signs, cause of leukocytosis left for clinical correlation. - Resolved 11/04/23 (5) Cognitive disorder: Plan: Pt having increasing difficulty caring for himself Has caregivers in during the day but alone overnight POAs are sisters and they are interested in group home placement for him at this time Plan is termite renewal inspector placement, CM following Plan Chronic stable medical problems: * anxiety - continue buspar * BPH - continue flomax * HTN - continue amlodipine, control improved with serial HD CODE STATUS: Full code DVT prophylaxis: heparin SQ Disposition: Plan is for placement, He will need to establish outpatient dialysis chair prior to discharge. Please call sisters with updates: Ban ; Renay Admission and Anticipated Discharge Date Admission Date: October 17, 2023 Supervising Physician Co-Signing Physician Notes PA Supervision Note: I did not personally see or examine the patient today, but I verified all benitez points of MANISHA Shultz' assessment and plan with the following exceptions/additions: None Subjective Patient seen and evaluated at bedside. He has no acute complaints at this time. We talked about the [employer] football game, and patient reports that he is eager for [employer] games to start. Continue to wait for placement. Physical Exam Physical Exam: General: No acute distress, nondiaphoretic, well-developed, well-nourished. Skin: The skin was without rashes, erythema, edema, or bruising. Dialysis fistula right arm. Cardiac: Regular rate and rhythm without murmurs gallops or rubs. Pulm: Clear to auscultation bilaterally without wheezes, rales or rhonchi. No respiratory distress. 100% on room air. Abdominal: Soft, nontender, nondistended. Bowel sounds present. Neuro: A&O x3. No focal neurological deficits. Results & Data Results & Data Vital Signs (Past 12 Hours) Vital Signs Temp Pulse Pulse Resp BP Pulse Ox O2 Del Method 08/31/24 08:19 36.9 C 78 17 122/67 100 Room Air 11/18/23 07:06 36.7 C 84 16 151/75 H 99 Room Air Laboratory Results Reviewed CBC Reviewed BMP PG Care Time/CCT Total # of Minutes Spent Total Time Spent with Patient: Total time spent is greater than 50% in coordination of care (as documented) at patient's floor/unit and/or counseling patient: Coding Level of Care Code 25521 SUB INP/OBS CARE 04/13MIN Diagnoses End stage renal disease N18.6 Acute kidney injury superimposed on stage 5 chronic kidney disease, not on chronic dialysis N17.9; N18.5 Hypoglycemia due to type 2 diabetes mellitus E11.649 Leukocytosis, unspecified type D72.829 Leukocytosis type: unspecified Cognitive disorder F09 (4) Leukocytosis Leukocytosis type: unspecified Qualified Code(s): D72.829 - Elevated white blood cell count, unspecified
--- NOTE | 2023-11-18 12:44 | Nephrology Progress Note ---
Date of Service November 18, 2023 Assessment & Plan (1) End stage renal disease: Plan: * ESKD due to DKD. Started HD 10/23/23 via Rt arm AV fistula (placed 04/12/2023 with transposition in July). * BP and volume status acceptable. * Next HD planned for Monday. (2) Anemia: Plan: * Will provide HARMONY w/ HD (3) Secondary hyperparathyroidism of renal origin: Plan: * Continue calcitriol 0.25 QAM. Renvela 1 tab QAC. Low phosphorus diet. (4) Hypertension: Plan: * BP is acceptable. Continue amlodipine and furosemide Admission and Anticipated Discharge Date Admission Date: October 17, 2023 Subjective No acute events overnight. No complaints this AM. Completed HD yesterday without complications. Review of Systems Review of Systems: All systems reviewed & are unremarkable except as noted in HPI & below Physical Exam Constitutional: well developed; no acute distress Eyes: no scleral abnormality and no corneal abnormality ENMT: Mouth: no oral mucosal abnormality and oral mucous membranes not dry Neck: normal visual inspection and trachea midline Respiratory: normal respiratory effort Auscultation: lungs clear to auscultation bilaterally Cardiovascular: Rate/Rhythm: regular rate Heart Sounds: normal S1 and normal S2 Extremities: normal capillary refill, + edema and + AV fistula Musculoskeletal: Extremities: no cyanosis and no clubbing Skin: normal turgor; no lesions Neurologic: Motor/Sensory: no tremor and no asterixis Psychiatric: Orientation: alert and oriented x 3 Results & Data Vital Signs (Past 12 Hours) Vital Signs Temp Pulse Pulse Resp BP Pulse Ox O2 Del Method 11/18/23 11:30 36.7 C 77 18 118/70 99 Room Air 11/18/23 08:19 36.9 C 78 17 122/67 100 Room Air 11/18/23 07:06 36.7 C 84 16 151/75 H 99 Room Air Laboratory Results Laboratory Results - last 24 hr 11/17/23 11/17/23 11/17/23 13:23 16:34 20:27 WBC RBC Hgb Hct MCV MCH MCHC RDW Std Deviation RDW Coeff of Vinay Plt Count MPV Sodium Potassium Chloride Carbon Dioxide Anion Gap BUN Creatinine Est Cr Clr Drug Dosing Est GFR ( Amer) Est GFR (Non-Af Amer) BUN/Creatinine Ratio Glucose POC Glucose 101 H 184 H 100 H Calcium Hep Bs Antigen 11/18/23 11/18/23 11/18/23 05:55 07:33 11:22 WBC 9.61 RBC 3.21 L Hgb 10.0 L Hct 30.8 L MCV 96.0 MCH 31.2 MCHC 32.5 RDW Std Deviation 50.6 H RDW Coeff of Vinay 14.6 H Plt Count 179 MPV 9.1 L Sodium 137 Potassium 4.1 Chloride 102 Carbon Dioxide 27 Anion Gap 8 BUN 56 H Creatinine 3.91 H D Est Cr Clr Drug Dosing 22.0 Est GFR ( Amer) 17.8 Est GFR (Non-Af Amer) 15.3 BUN/Creatinine Ratio 14.3 Glucose 101 H POC Glucose 104 H 193 H Calcium 9.0 Hep Bs Antigen Pending PG Care Time/CCT Total # of Minutes Spent Total Time Spent with Patient: Total time spent is greater than 50% in coordination of care (as documented) at patient's floor/unit and/or counseling patient: Coding Level of Care Code 09829 SUB INP/OBS CARE 3/50MIN Diagnoses End stage renal disease N18.6 Anemia D64.9 Secondary hyperparathyroidism of renal origin N25.81 Hypertension I10
[2023-11-19 06:33] LABS: BUN Creatinine Ratio 17.1 (10-20); Calcium 9.1 mg/dl (8.6-10.3); Creatinine Clr Calc Pharmacy 19.4 ml/min; Est GFR (African American) 15.2 ml/min; Est GFR (Non-African American) 13.2 ml/min; Potassium 3.9 mmol/L (3.5-5.1)
--- NOTE | 2023-11-19 08:50 | Hospitalist Progress Note ---
Date of Service November 19, 2023 Assessment & Plan (1) Acute kidney injury superimposed on stage 5 chronic kidney disease, not on chronic dialysis: Plan: 62 yo male PMHx intellectual disability, CKD-V not yet on SAMPLE HAND at time of admission, T2DM on insulin, ISAAK not on CPAP, secondary hyperparathyroidism, admitted after an episode of hypoglycemia as well as nausea and vomiting. Initiated hemodialysis this admission. Presented with KIRK on CKD-5 not on dialysis on presentation. 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 Progressed to ESRD and initiated hemodialysis this admission. - Hemodialysis initiated this admission (10/22, 10/23, 10/24) - tolerating well. Continue 3x/wk MWF schedule. - Loss Mitigation Specialist consulting > Continue calcitriol > Continue Nephrocaps, Lasix 40 Mg daily > Sevelamer switched to Calcium acetate 11/16 due to difficulty swallowing > Also with anemia of CKD - Epogen and PO Fe per nephrology > Access: RUE AVF, outpatient cathead operator: Dr. Alejandro - Awaiting appropriate disposition and outpatient dialysis appointment (2) Hypoglycemia due to type 2 diabetes mellitus: Plan: Jardiance has been discontinued. Home dose lantus is 20units Does have CGM at home, presented with hypoglycemia (reported down to 29 at home) - Continue basal bolus insulin 16 units of glargine plus Premeal aspart - 11/10 CF reduced from 22 to 18 - Better control noted with recent adjustments (3) Leukocytosis: Plan: Unclear source, initially up to 20,000, stress response related to vomiting - CXR/procal/UA/COVID/flu/rsv negative - Possible he had some aspiration pneumonitis at the time of admission related to his vomiting and inflammation is taking some time to resolve - Remains asymptomatic, no fevers, hypoxia or focal symptoms. - Peripheral smear Path: no infectious signs, cause of leukocytosis left for clinical correlation. - Resolved 11/04/23 (4) End stage renal disease: Plan: Started on 3x/week dialysis this admission as above (5) Cognitive disorder: Plan: Pt having increasing difficulty caring for himself Has caregivers in during the day but alone overnight POAs are sisters and they are interested in manager long term care placement for him at this time Plan is manager long term care placement, CM following Plan Chronic stable medical problems: * anxiety - continue buspar * BPH - continue flomax * HTN - continue amlodipine, control improved with serial HD CODE STATUS: Full code DVT prophylaxis: heparin SQ Disposition: Plan is for placement, He will need to establish outpatient dialysis chair prior to discharge. Please call sisters with updates: Ban ; Renay Admission and Anticipated Discharge Date Admission Date: October 17, 2023 Supervising Physician Co-Signing Physician Notes PA Supervision Note: I did not personally see or examine the patient today, but I verified all benitez points of MANISHA Shultz' assessment and plan with the following exceptions/additions: None Subjective Patient seen and evaluated at bedside. He has no acute complaints at this time. We talked about this sporting games yesterday. He will have dialysis tomorrow. Continue inpatient stay while waiting for placement. Physical Exam Physical Exam: General: No acute distress, nondiaphoretic, well-developed, well-nourished. Skin: The skin was without rashes, erythema, edema. Dialysis fistula right arm. Bruise noted on right upper arm, secondary to dialysis. Cardiac: Regular rate and rhythm without murmurs gallops or rubs. Pulm: Clear to auscultation bilaterally without wheezes, rales or rhonchi. No respiratory distress. 100% on room air. Abdominal: Soft, nontender, nondistended. Bowel sounds present. Neuro: A&O x3. No focal neurological deficits. Results & Data Results & Data Vital Signs (Past 12 Hours) Vital Signs Temp Pulse Resp BP Pulse Ox O2 Del Method 11/19/23 07:51 36.7 C 85 18 155/82 H 100 Room Air 11/19/23 07:31 36.2 C L 80 16 169/93 H 97 Room Air 11/18/23 21:06 36.9 C 84 18 156/85 H 99 Room Air Laboratory Results Reviewed BMP PG Care Time/CCT Total # of Minutes Spent Total Time Spent with Patient: Total time spent is greater than 50% in coordination of care (as documented) at patient's floor/unit and/or counseling patient: Coding Level of Care Code 30765 SUB INP/OBS CARE 1/25MIN Diagnoses Acute kidney injury superimposed on stage 5 chronic kidney disease, not on chronic dialysis N17.9; N18.5 Hypoglycemia due to type 2 diabetes mellitus E11.649 Leukocytosis, unspecified type D72.829 Leukocytosis type: unspecified End stage renal disease N18.6 Cognitive disorder F09 (3) Leukocytosis Leukocytosis type: unspecified Qualified Code(s): D72.829 - Elevated white blood cell count, unspecified
--- NOTE | 2023-11-19 14:01 | Nephrology Progress Note ---
Date of Service November 19, 2023 Assessment & Plan (1) End stage renal disease: Plan: * ESKD due to DKD. Started HD 10/23/23 via Rt arm AV fistula (placed 04/12/2023 with transposition in July). * BP and volume status acceptable. * Next HD planned for tomorrow. * Preliminary orders for HD entered into the EHR today. (2) Anemia: Plan: * Will provide HARMONY w/ HD (3) Secondary hyperparathyroidism of renal origin: Plan: * Continue calcitriol 0.25 QAM. Renvela 1 tab QAC. Low phosphorus diet. (4) Hypertension: Plan: * BP is acceptable. Continue amlodipine and furosemide Admission and Anticipated Discharge Date Admission Date: October 17, 2023 Subjective No acute events overnight. No complaints today. Review of Systems Review of Systems: All systems reviewed & are unremarkable except as noted in HPI & below Physical Exam Constitutional: well developed; no acute distress Eyes: no scleral abnormality and no corneal abnormality ENMT: Mouth: no oral mucosal abnormality and oral mucous membranes not dry Neck: normal visual inspection and trachea midline Respiratory: normal respiratory effort Auscultation: lungs clear to auscultation bilaterally Cardiovascular: Rate/Rhythm: regular rate Heart Sounds: normal S1 and normal S2 Extremities: normal capillary refill, + edema and + AV fistula Musculoskeletal: Extremities: no cyanosis and no clubbing Skin: normal turgor; no lesions Neurologic: Motor/Sensory: no tremor and no asterixis Psychiatric: Orientation: alert and oriented x 3 Results & Data Vital Signs (Past 12 Hours) Vital Signs Temp Pulse Resp BP Pulse Ox O2 Del Method 11/19/23 11:45 36.7 C 77 17 135/71 98 Room Air 11/19/23 07:51 36.7 C 85 18 155/82 H 100 Room Air 11/19/23 07:31 36.2 C L 80 16 169/93 H 97 Room Air 11/19/23 07:30 Room Air Laboratory Results Laboratory Results - last 24 hr 11/18/23 11/18/23 11/19/23 16:38 20:58 05:49 Sodium 133 L Potassium 3.9 Chloride 99 Carbon Dioxide 26 Anion Gap 8 BUN 76 H D Creatinine 4.44 H D Est Cr Clr Drug Dosing 19.4 Est GFR ( Amer) 15.2 Est GFR (Non-Af Amer) 13.2 BUN/Creatinine Ratio 17.1 Glucose 132 H POC Glucose 79 138 H Calcium 9.1 11/19/23 11/19/23 07:50 11:22 Sodium Potassium Chloride Carbon Dioxide Anion Gap BUN Creatinine Est Cr Clr Drug Dosing Est GFR ( Amer) Est GFR (Non-Af Amer) BUN/Creatinine Ratio Glucose POC Glucose 146 H 173 H Calcium PG Care Time/CCT Total # of Minutes Spent Total Time Spent with Patient: Total time spent is greater than 50% in coordination of care (as documented) at patient's floor/unit and/or counseling patient: Coding Level of Care Code 92167 SUB INP/OBS CARE 235MIN Diagnoses End stage renal disease N18.6 Anemia D64.9 Secondary hyperparathyroidism of renal origin N25.81 Hypertension I10
[2023-11-20 07:05] LABS: Hematocrit (blood only) 29.5 % (42.0-52.0); Hemoglobin 9.9 g/dl (14.0-18.0)
[2023-11-20 07:31] LABS: Albumin Level 3.9 gm/dl (3.4-5.0); BUN Creatinine Ratio 18.3 (10-20); Calcium 9.2 mg/dl (8.6-10.3); Est GFR (Non-African American) 11.2 ml/min; Phosphorus 3.8 mg/dl (2.5-4.9); Potassium 3.9 mmol/L (3.5-5.1)
[2023-11-20] MEDS: EPOETIN ALFA 10,000 UNITS/ML VIAL IV SCH (10:48)
--- NOTE | 2023-11-20 14:00 | Hospitalist Progress Note ---
Date of Service November 20, 2023 Assessment & Plan (1) Acute kidney injury superimposed on stage 5 chronic kidney disease, not on chronic dialysis: Plan: 62 yo male PMHx intellectual disability, CKD-V not yet on CAKE STRIPPER at time of admission, T2DM on insulin, ISAAK not on CPAP, secondary hyperparathyroidism, admitted after an episode of hypoglycemia as well as nausea and vomiting. Initiated hemodialysis this admission. Presented with KIRK on CKD-5 not on dialysis on presentation. 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 Progressed to ESRD and initiated hemodialysis this admission. - Hemodialysis initiated this admission (10/22, 10/23, 10/24) - tolerating well. Continue 3x/wk MWF schedule. - Knot Cutter consulting > Continue calcitriol > Continue Nephrocaps, Lasix 40 Mg daily > Sevelamer switched to Calcium acetate 11/16 due to difficulty swallowing > Also with anemia of CKD - Epogen and PO Fe per nephrology > Access: RUE AVF, outpatient pilot: Dr. Alejandro -Reviewed BMP 11/19: creatinine 5.07, BUN 93 - Awaiting appropriate disposition and outpatient dialysis appointment (2) Hypoglycemia due to type 2 diabetes mellitus: Plan: Jardiance has been discontinued. Home dose lantus is 20units Does have CGM at home, presented with hypoglycemia (reported down to 29 at home) - Continue basal bolus insulin 16 units of glargine plus Premeal aspart - 11/10 CF reduced from 22 to 18 - Better control noted with recent adjustments (3) Leukocytosis: Plan: Unclear source, initially up to 20,000, stress response related to vomiting - CXR/procal/UA/COVID/flu/rsv negative - Possible he had some aspiration pneumonitis at the time of admission related to his vomiting and inflammation is taking some time to resolve - Remains asymptomatic, no fevers, hypoxia or focal symptoms. - Peripheral smear Path: no infectious signs, cause of leukocytosis left for clinical correlation. 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 Please call sisters with updates: Ban ; Renay Admission and Anticipated Discharge Date Admission Date: October 17, 2023 Subjective Patient seen and examined today following dialysis. He reports he tolerated dialysis well. He denies any complaints today. Physical Exam 2 Constitutional: WD/WN, vitals as above Eyes: PERRL, conjunctivae normal, anicteric sclerae Respiratory: normal respiratory effort, lungs clear to auscultation Cardiovascular: RRR, no murmur, no edema Skin: no rashes, warm and dry Psychiatric: A+Ox3, euthymic affect Results & Data Results & Data Vital Signs (Past 12 Hours) Vital Signs Temp Pulse Pulse Pulse Resp BP BP 11/20/23 13:00 82 126/62 11/20/23 12:30 81 113/60 11/20/23 12:00 79 105/56 L 11/20/23 11:30 76 118/62 11/20/23 11:00 80 119/68 11/20/23 10:30 76 116/65 11/20/23 10:00 76 135/69 11/20/23 09:51 78 143/70 H 11/20/23 09:43 36.8 C 79 11/20/23 07:23 36.5 C 78 16 153/69 H Pulse Ox O2 Del Method 11/20/23 13:00 11/20/23 12:30 11/20/23 12:00 11/20/23 11:30 11/20/23 11:00 11/20/23 10:30 11/20/23 10:00 11/20/23 09:51 11/20/23 09:43 11/20/23 07:23 96 Room Air Laboratory Results 11/20/23 06:08 11/20/23 06:08 PG Care Time/CCT Total # of Minutes Spent Total Time Spent with Patient: Total time spent is greater than 50% in coordination of care (as documented) at patient's floor/unit and/or counseling patient: Coding Level of Care Code 08106 SUB INP/OBS CARE 2/35MIN Diagnoses Acute kidney injury superimposed on stage 5 chronic kidney disease, not on chronic dialysis N17.9; N18.5 Hypoglycemia due to type 2 diabetes mellitus E11.649 Leukocytosis, unspecified type D72.829 Leukocytosis type: unspecified End stage renal disease N18.6 Cognitive disorder F09 (3) Leukocytosis Leukocytosis type: unspecified Qualified Code(s): D72.829 - Elevated white blood cell count, unspecified
--- NOTE | 2023-11-20 14:12 | Nephrology Progress Note ---
Date of Service November 20, 2023 Assessment & Plan (1) End stage renal disease: Plan: * ESKD due to DKD. Started HD 10/23/23 via Rt arm AV fistula (placed 04/12/2023 with transposition in July). * Orders for HD today entered into the EHR and reviewed with sales assistants and salespersons. * Bin tolerated treatment well. * Medications are appropriate for IHD. (2) Anemia: Plan: * HARMONY w/ HD PRN. (3) Secondary hyperparathyroidism of renal origin: Plan: * Continue calcitriol 0.25 QAM. Renvela 1 tab QAC. Low phosphorus diet. (4) Hypertension: Plan: * BP is acceptable. Continue amlodipine and furosemide Admission and Anticipated Discharge Date Admission Date: October 17, 2023 Subjective No acute events overnight. No complaints this AM. Bin tolerated HD well. He was seen and evaluated during treatment. Review of Systems Review of Systems: All systems reviewed & are unremarkable except as noted in HPI & below Physical Exam Constitutional: well developed; no acute distress Eyes: no scleral abnormality and no corneal abnormality ENMT: Mouth: no oral mucosal abnormality and oral mucous membranes not dry Neck: normal visual inspection and trachea midline Respiratory: normal respiratory effort Auscultation: lungs clear to auscultation bilaterally Cardiovascular: Rate/Rhythm: regular rate Heart Sounds: normal S1 and normal S2 Extremities: normal capillary refill, + edema and + AV fistula Musculoskeletal: Extremities: no cyanosis and no clubbing Skin: normal turgor; no lesions Neurologic: Motor/Sensory: no tremor and no asterixis Psychiatric: Orientation: alert and oriented x 3 Results & Data Vital Signs (Past 12 Hours) Vital Signs Temp Pulse Pulse Pulse Resp BP BP 11/20/23 13:00 82 126/62 11/20/23 12:30 81 113/60 11/20/23 12:00 79 105/56 L 11/20/23 11:30 76 118/62 11/20/23 11:00 80 119/68 11/20/23 10:30 76 116/65 11/20/23 10:00 76 135/69 11/20/23 09:51 78 143/70 H 11/20/23 09:43 36.8 C 79 11/20/23 07:23 36.5 C 78 16 153/69 H Pulse Ox O2 Del Method 11/20/23 13:00 11/20/23 12:30 09/02/24 12:00 11/20/23 11:30 11/20/23 11:00 11/20/23 10:30 11/20/23 10:00 11/20/23 09:51 11/20/23 09:43 11/20/23 07:23 96 Room Air Laboratory Results Laboratory Results - last 24 hr 11/19/23 11/19/23 11/20/23 16:28 20:46 06:08 Hgb 9.9 L Hct 29.5 L Sodium 134 L Potassium 3.9 Chloride 100 Carbon Dioxide 25 Anion Gap 9 BUN 93 H Creatinine 5.07 H* D Est Cr Clr Drug Dosing 17.0 Est GFR ( Amer) 13.0 Est GFR (Non-Af Amer) 11.2 BUN/Creatinine Ratio 18.3 Glucose 157 H POC Glucose 131 H 164 H Calcium 9.2 Phosphorus 3.8 Albumin 3.9 11/20/23 11/20/23 07:27 13:49 Hgb Hct Sodium Potassium Chloride Carbon Dioxide Anion Gap BUN Creatinine Est Cr Clr Drug Dosing Est GFR ( Amer) Est GFR (Non-Af Amer) BUN/Creatinine Ratio Glucose POC Glucose 155 H 140 H Calcium Phosphorus Albumin PG Care Time/CCT Total # of Minutes Spent Total Time Spent with Patient: Total time spent is greater than 50% in coordination of care (as documented) at patient's floor/unit and/or counseling patient: Coding Level of Care Code 61254 SUB INP/OBS CARE 3/50MIN Diagnoses End stage renal disease N18.6 Anemia D64.9 Secondary hyperparathyroidism of renal origin N25.81 Hypertension I10
--- NOTE | 2023-11-21 12:17 | Hospitalist Progress Note ---
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 Initiated hemodialysis this admission. Patient now ESRD on chronic dialysis. Presented with KIRK on CKD-5 not on dialysis on presentation. 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 Progressed to ESRD and initiated hemodialysis this admission. - Hemodialysis initiated this admission (10/22, 10/23, 10/24) - tolerating well. Continue 3x/wk MWF schedule. - Assistant To The Ceo consulting > Continue calcitriol > Continue Nephrocaps, Lasix 40 Mg daily > Sevelamer switched to Calcium acetate 11/16 due to difficulty swallowing > Also with anemia of CKD - Epogen and PO Fe per nephrology > Access: RUE AVF, outpatient sugar trucker: Dr. Alejandro -Reviewed BMP 11/19: creatinine 5.07, BUN 93 - Awaiting appropriate disposition and outpatient dialysis appointment (2) Hypoglycemia due to type 2 diabetes mellitus: Plan: Jardiance has been discontinued. Home dose lantus is 20units Does have CGM at home, presented with hypoglycemia (reported down to 29 at home) - Continue basal bolus insulin 16 units of glargine plus Premeal aspart - 11/10 CF reduced from 22 to 18 - Better control noted with recent adjustments (3) Leukocytosis: Plan: Unclear source, initially up to 20,000, stress response related to vomiting - CXR/procal/UA/COVID/flu/rsv negative - Possible he had some aspiration pneumonitis at the time of admission related to his vomiting and inflammation is taking some time to resolve - Remains asymptomatic, no fevers, hypoxia or focal symptoms. - Peripheral smear Path: no infectious signs, cause of leukocytosis left for clinical correlation. - Resolved 11/04/23 (4) End stage renal disease: Plan: Started on 3x/week dialysis this admission as above (5) Cognitive disorder: Plan: Pt having increasing difficulty caring for himself Has caregivers in during the day but alone overnight POAs are sisters and they are interested in residential placement for him at this time Plan is parts counterman placement, CM following Plan Chronic stable medical problems: * anxiety - continue buspar * BPH - continue flomax * HTN - continue amlodipine, control improved with serial HD CODE STATUS: Full code DVT prophylaxis: heparin SQ Disposition: Plan is for placement, He will need to establish outpatient dialysis chair prior to discharge. Please call sisters with updates: Ban ; Renay Admission and Anticipated Discharge Date Admission Date: October 17, 2023 Subjective Patient seen and examined this morning. Patient denies any complaints. Physical Exam Constitutional: WD/WN, vitals as above Eyes: PERRL, conjunctivae normal, anicteric sclerae Respiratory: normal respiratory effort, lungs clear to auscultation Cardiovascular: RRR, no murmur, no edema Gastrointestinal (Abdomen): normal bowel sounds, soft, nontender, no hepatosplenomegaly Skin: no rashes, warm and dry Psychiatric: A+Ox3, euthymic affect Results & Data Results & Data Vital Signs (Past 12 Hours) Vital Signs Temp Pulse Resp BP Pulse Ox O2 Del Method 11/21/23 07:44 36.4 C L 83 16 139/79 96 Room Air PG Care Time/CCT Total # of Minutes Spent Total Time Spent with Patient: Total time spent is greater than 50% in coordination of care (as documented) at patient's floor/unit and/or counseling patient: Coding Level of Care Code 26831 SUB INP/OBS CARE 2/35MIN Diagnoses Acute kidney injury superimposed on stage 5 chronic kidney disease, not on chronic dialysis N17.9; N18.5 Hypoglycemia due to type 2 diabetes mellitus E11.649 Leukocytosis, unspecified type D72.829 Leukocytosis type: unspecified End stage renal disease N18.6 Cognitive disorder F09 (3) Leukocytosis Leukocytosis type: unspecified Qualified Code(s): D72.829 - Elevated white blood cell count, unspecified
--- NOTE | 2023-11-21 13:22 | Nephrology Progress Note ---
Date of Service November 21, 2023 Assessment & Plan (1) End stage renal disease: (2) Diabetes type 2, uncontrolled: (3) Anemia: (4) Secondary hyperparathyroidism of renal origin: (5) Hypertension: Plan ESKD secondary to diabetic nephropathy, initially admitted to the hospital with generalized weakness and hypoglycemia and noted further worsening of kidney function, creatinine was above 5 with BUN 92 and started on HD on 10/23/23 via d Rt arm AV fistula placed on 04/12/2023 and had transposition on 08/08/2023. [facility] Bin has been living by himself with his caregiver as he has some intellectual disability. His sisters has been in volved in his care. But Bin and his family now feels it would be better for him to live in a long-term care facility where he can get 24 hours care. Waiting on skilled nursing, case management working to find the right place for him. Volume status improved, blood pressure well-controlled. Still waiting on long- term care facility placement and outpatient dialysis set up. --Dialysis tomorrow --right arm nephrology precaution, dose medications for eGFR less than 10. --continue on calcitriol 0.25 mcg daily --on Renvela 1 tab 3 times a day with meals, will avoid Velphoro in future as he did not tolerate well. --Epogen with dialysis --Continue on Nephrocaps daily. Admission and Anticipated Discharge Date Admission Date: October 17, 2023 Subjective Bin was seen and evaluated this morning. Overall he has been otherwise feeling well, denies any symptoms. Has been waiting for placement. Review of Systems Review of Systems: Detailed review of system was otherwise unremarkable. Physical Exam Constitutional: no acute distress Respiratory: normal respiratory effort, lungs clear to auscultation Cardiovascular: Rate/Rhythm: regular rate and regular rhythm Heart Sounds: normal S1 and normal S2 Extremities: + AV fistula (Rt BC AVF with thrill and bruit, healed scar) Neurologic: no focal motor deficits Psychiatric: A+Ox3, euthymic affect Results & Data Vital Signs (Past 12 Hours) Vital Signs Temp Pulse Resp BP Pulse Ox O2 Del Method 11/21/23 07:44 36.4 C L 83 16 139/79 96 Room Air PG Care Time/CCT Total # of Minutes Spent Total Time Spent with Patient: Total time spent is greater than 50% in coordination of care (as documented) at patient's floor/unit and/or counseling patient: Coding Level of Care Code 21360 SUB INP/OBS CARE Diagnoses End stage renal disease N18.6 Diabetes type 2, uncontrolled E11.65 Anemia D64.9 Secondary hyperparathyroidism of renal origin N25.81 Hypertension I10
[2023-11-22 09:29] LABS: Hematocrit (blood only) 34.5 % (42.0-52.0); Hemoglobin 10.9 g/dl (14.0-18.0); Mean Corpuscular Hemoglobin 30.6 pg (25.0-34.0); Mean Corpuscular Hgb Conc 31.6 g/dL (32.0-36.0); Mean Corpuscular Volume 96.9 fL (80.0-100.0); Mean Platelet Volume 9.1 fL (9.4-12.4); Platelet Count 247 K/uL (130-400); RDW Coefficient of Variation 14.9 % (11.5-14.5); RDW Standard Deviation 51.7 fL (36.4-46.3); Red Blood Count 3.56 M/uL (4.70-6.10); White Blood Count 10.22 K/ul (4.8-10.8)
[2023-11-22 09:47] LABS: BUN Creatinine Ratio 14.9 (10-20); Calcium 9.7 mg/dl (8.6-10.3); Creatinine Clr Calc Pharmacy 17.1 ml/min; Est GFR (African American) 13.1 ml/min; Est GFR (Non-African American) 11.3 ml/min; Potassium 4.1 mmol/L (3.5-5.1)
--- NOTE | 2023-11-22 10:08 | Nephrology Progress Note ---
Date of Service November 22, 2023 Assessment & Plan (1) End stage renal disease: (2) Diabetes type 2, uncontrolled: (3) Anemia: (4) Secondary hyperparathyroidism of renal origin: (5) Hypertension: Plan ESKD secondary to diabetic nephropathy, initially admitted to the hospital with generalized weakness and hypoglycemia and noted further worsening of kidney function, creatinine was above 5 with BUN 92 and started on HD on 10/23/23 via d Rt arm AV fistula placed on 04/12/2023 and had transposition on 08/08/2023. [facility] Bin has been living by himself with his caregiver as he has some intellectual disability. His sisters has been in volved in his care. But Bin and his family now feels it would be better for him to live in a long-term care facility where he can get 24 hours care. Waiting on usp, case management working to find the right place for him. Volume status improved, blood pressure well-controlled. Still waiting on long- term care facility placement and outpatient dialysis set up. --Dialysis today as MWF schedule --right arm nephrology precaution, dose medications for eGFR less than 10. --continue on calcitriol 0.25 mcg daily --on Renvela 1 tab 3 times a day with meals, will avoid Velphoro in future as he did not tolerate well. --Epogen with dialysis --Continue on Nephrocaps daily. Admission and Anticipated Discharge Date Admission Date: October 17, 2023 Subjective Bin was seen and evaluated this morning. Overall he has been otherwise feeling well, denies any symptoms. Still waiting for placement. Review of Systems Review of Systems: Detailed review of system was otherwise unremarkable. Physical Exam Constitutional: no acute distress Respiratory: normal respiratory effort, lungs clear to auscultation Cardiovascular: Rate/Rhythm: regular rate and regular rhythm Heart Sounds: normal S1 and normal S2 Extremities: + AV fistula (Rt BC AVF with thrill and bruit, healed scar) Neurologic: no focal motor deficits Psychiatric: A+Ox3, euthymic affect Results & Data Vital Signs (Past 12 Hours) Vital Signs Temp Pulse Pulse Pulse Resp BP BP 11/22/23 09:30 80 147/72 H 11/22/23 09:27 81 145/71 H 11/22/23 09:17 36.7 C 78 11/22/23 07:58 36.6 C 88 18 122/80 Pulse Ox O2 Del Method 11/22/23 09:30 11/22/23 09:27 11/22/23 09:17 11/22/23 07:58 96 Room Air PG Care Time/CCT Total # of Minutes Spent Total Time Spent with Patient: Total time spent is greater than 50% in coordination of care (as documented) at patient's floor/unit and/or counseling patient: Coding Level of Care Code 00190 SUB INP/OBS CARE 2/35MIN Diagnoses End stage renal disease N18.6 Diabetes type 2, uncontrolled E11.65 Anemia D64.9 Secondary hyperparathyroidism of renal origin N25.81 Hypertension I10
[2023-11-22] MEDS: EPOETIN ALFA 10,000 UNITS/ML VIAL IV SCH (11:19)
--- NOTE | 2023-11-22 14:00 | Hospitalist Progress Note ---
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 Initiated hemodialysis this admission. Patient now ESRD on chronic dialysis. Presented with KIRK on CKD-5 not on dialysis on presentation. 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 Progressed to ESRD and initiated hemodialysis this admission. - Hemodialysis initiated this admission (10/22, 10/23, 10/24) - tolerating well. Continue 3x/wk MWF schedule. - Towboat Engineer consulting > Continue calcitriol > Continue Nephrocaps, Lasix 40 Mg daily > Sevelamer switched to Calcium acetate 11/16 due to difficulty swallowing > Also with anemia of CKD - Epogen and PO Fe per nephrology > Access: RUE AVF, outpatient domestic violence advocate: Dr. Alejandro -Reviewed BMP 11/20: creatinine 5.04, BUN 75 - Awaiting appropriate disposition and outpatient dialysis appointment (2) Hypoglycemia due to type 2 diabetes mellitus: Plan: Jardiance has been discontinued. Home dose lantus is 20units Does have CGM at home, presented with hypoglycemia (reported down to 29 at home) - Continue basal bolus insulin 16 units of glargine plus Premeal aspart - 11/10 CF reduced from 22 to 18 - Better control noted with recent adjustments (3) Leukocytosis: Plan: Unclear source, initially up to 20,000, stress response related to vomiting - CXR/procal/UA/COVID/flu/rsv negative - Possible he had some aspiration pneumonitis at the time of admission related to his vomiting and inflammation is taking some time to resolve - Remains asymptomatic, no fevers, hypoxia or focal symptoms. - Peripheral smear Path: no infectious signs, cause of leukocytosis left for clinical correlation. - Resolved 11/04/23 (4) End stage renal disease: Plan: Started on 3x/week dialysis this admission as above (5) Cognitive disorder: Plan: Pt having increasing difficulty caring for himself Has caregivers in during the day but alone overnight POAs are sisters and they are interested in group home placement for him at this time Plan is truck terminal manager placement, CM following Plan Chronic stable medical problems: * anxiety - continue buspar * BPH - continue flomax * HTN - continue amlodipine, control improved with serial HD CODE STATUS: Full code DVT prophylaxis: heparin SQ Disposition: Plan is for placement, He will need to establish outpatient dialysis chair prior to discharge. Please call sisters with updates: Ban ; Renay Admission and Anticipated Discharge Date Admission Date: October 17, 2023 Subjective Patient seen and examined following dialysis this afternoon. Patient reports fatigue and discomfort near fistula sight. Patient states he was going to go for a walk with help of staff after our visit. He denied any additional complaints Physical Exam Constitutional: WD/WN, vitals as above Eyes: PERRL, conjunctivae normal, anicteric sclerae Respiratory: normal respiratory effort, lungs clear to auscultation Cardiovascular: RRR, no murmur, no edema Gastrointestinal (Abdomen): normal bowel sounds, soft, nontender, no hepatosplenomegaly Skin: no rashes, warm and dry Psychiatric: A+Ox3, euthymic affect Results & Data Results & Data Vital Signs (Past 12 Hours) Vital Signs Temp Pulse Pulse Pulse Resp BP BP 11/22/23 12:30 79 132/65 11/22/23 12:00 78 131/63 11/22/23 11:30 78 129/67 11/22/23 11:00 79 136/66 11/22/23 10:30 80 137/72 11/22/23 10:00 80 130/68 11/22/23 09:30 80 147/72 H 11/22/23 09:27 81 145/71 H 11/22/23 09:17 36.7 C 78 11/22/23 07:58 36.6 C 88 18 122/80 Pulse Ox O2 Del Method 11/22/23 12:30 11/22/23 12:00 11/22/23 11:30 11/22/23 11:00 11/22/23 10:30 11/22/23 10:00 11/22/23 09:30 11/22/23 09:27 11/22/23 09:17 11/22/23 07:58 96 Room Air PG Care Time/CCT Total # of Minutes Spent Total Time Spent with Patient: Total time spent is greater than 50% in coordination of care (as documented) at patient's floor/unit and/or counseling patient: Coding Level of Care Code 08702 SUB INP/OBS CARE MIN Diagnoses Acute kidney injury superimposed on stage 5 chronic kidney disease, not on chronic dialysis N17.9; N18.5 Hypoglycemia due to type 2 diabetes mellitus E11.649 Leukocytosis, unspecified type D72.829 Leukocytosis type: unspecified End stage renal disease N18.6 Cognitive disorder F09 (3) Leukocytosis Leukocytosis type: unspecified Qualified Code(s): D72.829 - Elevated white blood cell count, unspecified
[2023-11-22 14:21] VITALS: RESP 16
--- NOTE | 2023-11-23 10:28 | Nephrology Progress Note ---
Date of Service November 23, 2023 Assessment & Plan (1) End stage renal disease: (2) Diabetes type 2, uncontrolled: (3) Anemia: (4) Secondary hyperparathyroidism of renal origin: (5) Hypertension: Plan ESKD secondary to diabetic nephropathy, initially admitted to the hospital with generalized weakness and hypoglycemia and noted further worsening of kidney function, creatinine was above 5 with BUN 92 and started on HD on 10/23/23 via d Rt arm AV fistula placed on 04/12/2023 and had transposition on 08/08/2023. [facility] Bin has been living by himself with his caregiver as he has some intellectual disability. His sisters has been in volved in his care. But Bin and his family now feels it would be better for him to live in a long-term care facility where he can get 24 hours care. Waiting on skilled nursing, case management working to find the right place for him. Blood pressure well-controlled. Still waiting on MA for long-term care facility placement and outpatient dialysis set up. --Dialysis MWF schedule --right arm nephrology precaution, dose medications for eGFR less than 10. --continue on calcitriol 0.25 mcg daily --on Renvela 1 tab 3 times a day with meals, will avoid Velphoro in future as he did not tolerate well. --Epogen with dialysis --Continue on Nephrocaps daily. Admission and Anticipated Discharge Date Admission Date: October 17, 2023 Johanna Steward was seen and evaluated this morning. Overall he has been otherwise feeling well, denies any symptoms. Had HD yesterday, BP stable, reports decent po intake. Still waiting for MA and placement. Review of Systems Review of Systems: Detailed review of system was otherwise unremarkable. Physical Exam Constitutional: no acute distress Respiratory: normal respiratory effort, lungs clear to auscultation Cardiovascular: Rate/Rhythm: regular rate and regular rhythm Heart Sounds: normal S1 and normal S2 Extremities: + AV fistula (Rt BC AVF with thrill and bruit, healed scar) Neurologic: no focal motor deficits Psychiatric: A+Ox3, euthymic affect Results & Data Vital Signs (Past 12 Hours) Vital Signs Temp Pulse Resp BP Pulse Ox O2 Del Method 11/23/23 07:34 36.6 C 85 16 138/76 96 Room Air PG Care Time/CCT Total # of Minutes Spent Total Time Spent with Patient: Total time spent is greater than 50% in coordination of care (as documented) at patient's floor/unit and/or counseling patient: Coding Level of Care Code 23538 SUB INP/OBS CARE 04/13MIN Diagnoses End stage renal disease N18.6 Diabetes type 2, uncontrolled E11.65 Anemia D64.9 Secondary hyperparathyroidism of renal origin N25.81 Hypertension I10
--- NOTE | 2023-11-23 14:17 | Hospitalist Progress Note ---
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 Initiated hemodialysis this admission. Patient now ESRD on chronic dialysis. Presented with KIRK on CKD-5 not on dialysis on presentation. 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 Progressed to ESRD and initiated hemodialysis this admission. - Hemodialysis initiated this admission (10/22, 10/23, 10/24) - tolerating well. Continue 3x/wk MWF schedule. - Gold Stamper consulting > Continue calcitriol > Continue Nephrocaps, Lasix 40 Mg daily > Sevelamer switched to Calcium acetate 11/16 due to difficulty swallowing > Also with anemia of CKD - Epogen and PO Fe per nephrology > Access: RUE AVF, outpatient ethologist: Dr. Alejandro -Reviewed BMP 11/20: creatinine 5.04, BUN 75 - Awaiting appropriate disposition and outpatient dialysis appointment (2) Hypoglycemia due to type 2 diabetes mellitus: Plan: Jardiance has been discontinued. Home dose Lantus is 20units Does have CGM at home, presented with hypoglycemia (reported down to 29 at home) - Continue basal bolus insulin 16 units of glargine plus Premeal aspart - 11/10 CF reduced from 22 to 18 - Better control noted with recent adjustments (3) Leukocytosis: Plan: Unclear source, initially up to 20,000, stress response related to vomiting - CXR/procal/UA/COVID/flu/rsv negative - Possible he had some aspiration pneumonitis at the time of admission related to his vomiting and inflammation is taking some time to resolve - Remains asymptomatic, no fevers, hypoxia or focal symptoms. - Peripheral smear Path: no infectious signs, cause of leukocytosis left for clinical correlation. - Resolved 11/04/23 (4) End stage renal disease: Plan: Started on 3x/week dialysis this admission as above (5) Cognitive disorder: Plan: Pt having increasing difficulty caring for himself Has caregivers in during the day but alone overnight POAs are sisters and they are interested in assisted placement for him at this time Plan is intermediate designer placement, CM following Plan Chronic stable medical problems: * anxiety - continue buspar * BPH - continue flomax * HTN - continue amlodipine, control improved with serial HD CODE STATUS: Full code DVT prophylaxis: heparin SQ Disposition: Plan is for placement, He will need to establish outpatient dialysis chair prior to discharge. Please call sisters with updates: Ban ; Renay Admission and Anticipated Discharge Date Admission Date: October 17, 2023 Subjective Patient seen and examined this afternoon. Patient doing well and denies any complaints today. Physical Exam Constitutional: WD/WN, vitals as above Eyes: PERRL, conjunctivae normal, anicteric sclerae Respiratory: normal respiratory effort, lungs clear to auscultation Cardiovascular: RRR, no murmur, no edema Gastrointestinal (Abdomen): normal bowel sounds, soft, nontender, no hepatosplenomegaly Skin: no rashes, warm and dry Psychiatric: A+Ox3, euthymic affect Results & Data Results & Data Vital Signs (Past 12 Hours) Vital Signs Temp Pulse Resp BP Pulse Ox O2 Del Method 11/23/23 07:34 36.6 C 85 16 138/76 96 Room Air PG Care Time/CCT Total # of Minutes Spent Total Time Spent with Patient: Total time spent is greater than 50% in coordination of care (as documented) at patient's floor/unit and/or counseling patient: Coding Level of Care Code 71989 SUB INP/OBS CARE 2/35MIN Diagnoses Acute kidney injury superimposed on stage 5 chronic kidney disease, not on chronic dialysis N17.9; N18.5 Hypoglycemia due to type 2 diabetes mellitus E11.649 Leukocytosis, unspecified type D72.829 Leukocytosis type: unspecified End stage renal disease N18.6 Cognitive disorder F09 (3) Leukocytosis Leukocytosis type: unspecified Qualified Code(s): D72.829 - Elevated white blood cell count, unspecified
[2023-11-24 07:25] VITALS: O2SAT 99
[2023-11-24 09:53] LABS: Hemoglobin 10.9 g/dl (14.0-18.0); Mean Corpuscular Hemoglobin 31.1 pg (25.0-34.0); Mean Corpuscular Hgb Conc 32.1 g/dL (32.0-36.0); Mean Corpuscular Volume 96.9 fL (80.0-100.0); Mean Platelet Volume 9.2 fL (9.4-12.4); Platelet Count 231 K/uL (130-400); RDW Standard Deviation 50.9 fL (36.4-46.3); Red Blood Count 3.51 M/uL (4.70-6.10)
[2023-11-24 10:09] LABS: BUN Creatinine Ratio 14.6 (10-20); Calcium 9.5 mg/dl (8.6-10.3); Est GFR (African American) 13.9 ml/min; Potassium 3.7 mmol/L (3.5-5.1)
--- NOTE | 2023-11-24 12:27 | Nephrology Progress Note ---
Date of Service November 24, 2023 Assessment & Plan (1) End stage renal disease: (2) Diabetes type 2, uncontrolled: (3) Anemia: (4) Secondary hyperparathyroidism of renal origin: (5) Hypertension: Plan ESKD secondary to diabetic nephropathy, initially admitted to the hospital with generalized weakness and hypoglycemia and noted further worsening of kidney function, creatinine was above 5 with BUN 92 and started on HD on 10/23/23 via d Rt arm AV fistula. AVF was placed on 04/12/2023 and had transposition on 08/08/2023. [facility]. Bin has been living by himself with his caregiver as he has some intellectual disability. His sisters has been involved in his care. But Bin and his family now feels it would be better for him to live in a long-term care facility where he can get 24 hours care. He was accepted at [facility] [place]. Blood pressure well-controlled. Tolerating HD. --Plan for discharge this afternoon to long-term care facility in [place] and he is all set for first outpatient dialysis at [facility] [place] starting next Monday at 9:15 AM then continue on Monday, Monday, Monday dialysis. Discussed with Bin's Sister Elda who is agreeable with the plan and have all the information she needs and she will also be in touch with dialysis community service patrol officer Do. --right arm nephrology precaution, dose medications for eGFR less than 10. --continue on calcitriol 0.25 mcg daily --on Renvela 1 tab 3 times a day with meals, will avoid Velphoro in future as he did not tolerate well. --Epogen with dialysis --Continue on Nephrocaps daily. Admission and Anticipated Discharge Date Admission Date: October 17, 2023 Subjective Bin was seen and evaluated this morning. Overall he has been otherwise feeling well, denies any symptoms, tolerating hemodialysis. BP stable, reports decent po intake. Plan for discharge this afternoon. Review of Systems Review of Systems: Detailed review of system was otherwise unremarkable. Physical Exam Constitutional: no acute distress Respiratory: normal respiratory effort, lungs clear to auscultation Cardiovascular: Rate/Rhythm: regular rate and regular rhythm Heart Sounds: normal S1 and normal S2 Extremities: + AV fistula (Rt BC AVF with thrill and bruit, healed scar) Neurologic: no focal motor deficits Psychiatric: A+Ox3, euthymic affect Results & Data Vital Signs (Past 12 Hours) Vital Signs Temp Pulse Resp BP Pulse Ox O2 Del Method 11/24/23 07:25 36.8 C 82 16 143/69 H 99 Room Air PG Care Time/CCT Total # of Minutes Spent Total Time Spent with Patient: Total time spent is greater than 50% in coordination of care (as documented) at patient's floor/unit and/or counseling patient: Coding Level of Care Code 83869 SUB INP/OBS CARE 2/35MIN Diagnoses End stage renal disease N18.6 Diabetes type 2, uncontrolled E11.65 Anemia D64.9 Secondary hyperparathyroidism of renal origin N25.81 Hypertension I10
--- NOTE | 2023-11-24 13:20 | Discharge Summary ---
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 Initiated hemodialysis this admission. Patient now ESRD on chronic dialysis. Patient started hemodialysis on 10/22 of this hospital admission and continued it every MWF. He tolerated it well. Creatinine 9/6 reviewed 4.78, BUN 70. Patient is to continue Calcitriol, Nephrocaps, Lasix 40mg daily, Calcium Acetate. Outpatient marketing programs manager is Dr. Alejandro who is he to continue to follow with. Dialysis access: RUE, AVF. (2) Hypoglycemia due to type 2 diabetes mellitus: Patient was hypogycemic at time of arrival to ED. Jardiance was resumed upon discharge. Lantus decreased to 16 units daily. Humolog reduced to 10 units TID. (3) Leukocytosis: Unclear source, initially up to 20,000, stress response related to vomiting. Workup including CXR, procal, UA, COVID, flu, RSV all negative. Possible he may have had component of aspiration pneumonitis at time of admission related to vomiting. Patient asymptomatic. WBC slightly elevated 9/ at 12.80 - can continue to follow up outpatient if warranted but patient asymptomatic at discharge. 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 He has had at least two episodes of hypoglycemia in the last 3 weeks as low as 29, according to his caregiver. He is on insulin therapy and no recent changes have been made to their dosing. He reports a decreased appetite after fistula placement was completed in July 2023. Today he had an episode of nausea and vomiting after taking a pill. He has not been sick recently. On admission he was found to have a leukocytosis of 20.47 and is tachycardic on the monitor. Other than the episode of vomiting today he denies MARK, CP, SOB, N/V/D, abdominal pain. ED course: s/p 750ml NSS He was treated empirically with ceftriaxone, blood cultures were not drawn CXR shows perihilar fullness, but no obvious focal pneumonia procal is negative UA not suggestive of infection COVID/Flu/RSV testing pending KUB ordered by ED pending Discharge Exam Constitutional WD/WN, vitals as above Eyes PERRL, conjunctivae normal, anicteric sclerae Respiratory normal respiratory effort, lungs clear to auscultation Cardiovascular RRR, no murmur, no edema Gastrointestinal (Abdomen) normal bowel sounds, soft, nontender, no hepatosplenomegaly Skin no rashes, warm and dry Psychiatric A+Ox3, euthymic affect Discharge Plan Discharge Items Patient Disposition: Transfer [facility] Fac Reason For Visit: HYPOGLYCEMIA, LEUKOCYTOSIS Discharge Diagnosis: ESRD on chronic dialysis Activity: Resume your previous activity Non-emergency contact: Primary Care Provider and Solar Energy Advisor Call non-emergency contact if: you have any medication questions and your symptoms worsen Follow-up/Referrals: Michelle Chaparro DO [Primary Care Provider] - Diet: Carb Consistent or DM2 and Dialysis Renal Addtl Attending Provider Instructions: Mr. Miles, You were hospitalized for having a low blood sugar and found to have advanced kidney disease requiring dialysis. You have completed dialysis on Monday, Monday, and Monday's which will continue upon discharge. Please see recommendations below regarding your discharge. 1. Continue Calcitriol 0.25mcg daily 2. Continue Revela three times a day with meals 3. Continue Nephrocaps daily 4. Your Lantus dosage at night has been decreased from 20 to 16 units daily. - Continue to monitor Blood sugars If you develop any fatigue, weakness, dizziness, chest pain, or shortness of breath please report to the ER for further care. Sincerely, Kiki Garcia PA-C Addtl Marketing Director Provider Instructions: DIABETES RECOMMENDATIONS: - When FreeStyle Kaylah alarms low or you get symptoms of low blood sugar (sweats, shakes), immediately treat with 15 grams of simple carbohydrates such as: - 4oz. juice - 4 glucose tablets - 2 Tbsp. raisins - 1 Tbsp. sugar, honey or maple syrup - If blood sugar level is below 50, treat with 30 grams of simple carbohydrates, such as: - 8oz. juice - 8 glucose tablets - 1/4 cup raisins - 2 Tbsps. sugar, honey or maple syrup. - Do not eat any food until blood sugar is back above 90. - Once blood sugar is above 90, eat a small snack or meal to help prevent repeat low blood sugar levels. - Would consider increasing the "low" alarm in the ProtoShare ruben from 75 to 90 to help catch lower blood sugar levels before they get too low. Click on three lines in upper left hand corner --> Alarms --> Low Glucose Alarm --> When glucose goes below --> change value from 75 to 90. - Use your before meal blood sugar level to help determine Humalog dose. If giving Humalog after the meal, do not add extra Humalog for a higher blood sugar level. - Notify [facility] if you continue to have trouble with low blood sugar levels or if blood sugar levels are frequently above target. Pending Studies at Discharge: No Stand-Alone Forms: My [facility] Skilled Items Patient informed of condition?: Yes DNR: No Discharge Level of Care: Skilled Communicable Disease: No Discharge Prognosis: Stable Lines: None Urinary Catheter: No Medications and DC Order Prescriptions: New furosemide 40 mg Tablet 40 mg PO QAM Qty: 30 0RF insulin glargine [Lantus U-100 Insulin] 100 unit/mL Solution 16 unit subcut HS Qty: 5 0RF Renal Caps 1 mg Capsule 1 cap PO QAM Qty: 30 0RF insulin lispro [Humalog KwikPen Insulin] 100 unit/mL insulin pen 10 unit subcut TID Qty: 15 0RF Continued amlodipine 5 mg tablet 5 mg PO QAM Qty: 90 3RF triamcinolone acetonide 0.5 % cream 1 applic topical BID PRN (Reason: skin irritation) Qty: 60 1RF Rx Instructions: apply to lower legs ferrous sulfate 325 mg (65 mg iron) tablet 325 mg PO BID Qty: 180 3RF tamsulosin 0.4 mg capsule 0.4 mg PO QAM Qty: 90 2RF calcitriol 0.25 mcg capsule 0.25 mcg PO QAM Qty: 90 3RF gabapentin 300 mg capsule 300 mg PO QPM Qty: 90 1RF Procrit 40,000 unit/mL solution 0 unit subcut MONTHLY simvastatin 20 mg tablet 20 mg PO QPM Qty: 90 3RF docusate sodium [Colace] 100 mg capsule 100 mg PO BID Qty: 180 1RF Rx Instructions: buspirone 15 mg tablet 15 mg PO BID Qty: 180 1RF Jardiance 10 mg tablet 10 mg PO QAM Qty: 30 5RF clotrimazole 1 % cream 1 applic topical BID Qty: 90 2RF glucose [Dex4 Glucose] 4 gram tablet,chewable 4 g PO Q15M PRN (Reason: hypoglycemia) Qty: 30 0RF Rx Instructions: until symptoms of low blood sugar are controlled albuterol sulfate 90 mcg/actuation HFA aerosol inhaler 2 inh inhalation Q6H PRN (Reason: Shortness Of Breath Or Wheezing) acetaminophen [Tylenol Extra Strength] 500 mg tablet 500 mg PO Q6H PRN (Reason: Pain) aspirin 81 mg Tablet,Delayed Release (Dr/Ec) 81 mg PO QAM Systane (PF) 0.4-0.3 % Dropperette 1 drp OPHTHALMIC (EYE) TID PRN (Reason: Dry Eyes) Discontinued losartan 100 mg tablet 100 mg PO QPM Qty: 90 3RF Velphoro 500 mg tablet,chewable 500 mg PO TIDWMEAL Qty: 90 2RF Rx Instructions: to be taken with meal as phosphate binder. insulin glargine [Lantus Solostar U-100 Insulin] 100 unit/mL (3 mL) insulin pen 20 unit subcut HS Qty: 45 1RF furosemide 40 mg tablet 40 mg PO BID Qty: 180 3RF insulin lispro [Humalog KwikPen Insulin] 100 unit/mL insulin pen 15 unit subcut TIDM Rx Instructions: 15 units subcut three times daily with meals No Action (DME) lancets [OneTouch SureSoft Lancing Dev] 28 gauge misc See Rx Instructions .ROUTE .MEDSUPPLY Qty: 100 5RF Rx Instructions: testing 3 X daily (DME) Shower Chair Misc See Rx Instructions .Route Qty: 1 0RF Rx Instructions: As directed (DME) pen needle, diabetic [BD Ultra-Fine Daria Pen Needle] 32 gauge x 5/32" needle See Rx Instructions .Route Qty: 400 1RF Rx Instructions: Use four per day to inject insulin (DME) FreeStyle Kaylah 3 [place] Misc See Rx Instructions .Route Qty: 1 0RF Rx Instructions: for use with Kaylah 3 sensors (DME) cane Device See Rx Instructions .Route Qty: 1 0RF Rx Instructions: As directed (DME) Handicap Walk In Shower See Rx Instructions .Route .MEDSUPPLY Qty: 1 0RF Rx Instructions: As directed (DME) compress.stocking,knee,reg,med Misc See Rx Instructions .ROUTE .MEDSUPPLY Qty: 2 0RF Rx Instructions: Medium compression 20-30mmHG; Dx: I87.2 (DME) blood-glucose meter [Blood Glucose Monitoring] Kit See Rx Instructions .ROUTE .MEDSUPPLY Qty: 1 0RF Rx Instructions: One Touch Ultra Mini. Test 4 times a day. (DME) OneTouch Ultra Blue Test Strip Strip See Rx Instructions .ROUTE .MEDSUPPLY Dose Instruction: As directed Rx Instructions: Testing 1 times daily, E11.49, E11.65 Discharge Orders: Discharge Order (Routine); Ordered 11/24/23 Ordered By: Kiki Garcia Admission Data Admit Date/Time: 10/17/23 23:15 Attending Provider: Jeffery Alonso Admit Provider: Gabriel Mcclain Primary Care Provider: Michelle Chaparro Other Providers: [place],[facility]; [facility]; [place]; Tad Quintanilla Kevin C. Other Interventions: Discharge Summary Assessment (RN) Last Done: 11/24/23 13:47 Hospital Stay Data Consultations 10/17/23 22:04 ED Decision to Admit Stat 10/20/23 07:33 Consult Nephrology Routine Pending Results Patient Have Any Pending Studies at Discharge: No Discharge Instructions Given to Patient (Per Discharging Provider) Mr. Miles, Amilcar were hospitalized for having a low blood sugar and found to have advanced kidney disease requiring dialysis. You have completed dialysis on Monday, Monday, and Monday's which will continue upon discharge. Please see recommendations below regarding your discharge. 1. Continue Calcitriol 0.25mcg daily 2. Continue Revela three times a day with meals 3. Continue Nephrocaps daily 4. Your Lantus dosage at night has been decreased from 20 to 16 units daily. - Continue to monitor Blood sugars If you develop any fatigue, weakness, dizziness, chest pain, or shortness of breath please report to the ER for further care. Sincerely, Kiki Garcia PA-C Total Time Total Time Spent Total Time Spent (In Minutes): 45 Total Time Includes: Examination of the Patient, Discharge Planning and Medication Reconciliation Coding Level of Care Code 57542 INP/OBS DISCH >30 MIN Diagnoses Acute kidney injury superimposed on stage 5 chronic kidney disease, not on chronic dialysis N17.9; N18.5 Hypoglycemia due to type 2 diabetes mellitus E11.649 Leukocytosis, unspecified type D72.829 Leukocytosis type: unspecified End stage renal disease N18.6 Cognitive disorder F09
[2023-11-24 14:04] VITALS: TEMP 97.9
[2023-11-24 14:15] VITALS: BP 137/67; PULSE 84
== END 2023-11-24 15:15 | DRG 682 ==
LOC: ED 19:47 → 2N 23:15 → SUATTDRO 23:15 → 2N 10-18 00:36 → 3N 10-24 23:15
DX: E86.0 Dehydration; N25.81 Secondary hyperparathyroidism of renal origin; N18.6 End stage renal disease; N17.9 Acute kidney failure, unspecified; F79 Unspecified intellectual disabilities; E11.649 Type 2 diabetes mellitus with hypoglycemia without coma; N40.1 Benign prostatic hyperplasia with lower urinary tract symptoms; D63.1 Anemia in chronic kidney disease; D72.829 Elevated white blood cell count, unspecified; I12.0 Hypertensive chronic kidney disease with stage 5 chronic kidney disease or end stage renal disease; D61.9 Aplastic anemia, unspecified; J69.0 Pneumonitis due to inhalation of food and vomit; E11.42 Type 2 diabetes mellitus with diabetic polyneuropathy; E11.49 Type 2 diabetes mellitus with other diabetic neurological complication; I87.2 Venous insufficiency (chronic) (peripheral); E11.22 Type 2 diabetes mellitus with diabetic chronic kidney disease